=== PATIENT | male | born 1990 | race Two or more races ===

== ENCOUNTER 2025-02-19 20:20 | Inpatient (IN) | payer OTHER, SELFPAY ==
[2025-02-19] VITALS (7 sets, daily range): BP systolic 120–124; BP diastolic 66–82; PULSE 85–120; RESP 14–22; TEMP 37.3–38.5; O2SAT 94–99; BMI 20.3
--- NOTE | 2025-02-19 20:43 | EKG_ITS ---
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
--- NOTE | 2025-02-19 20:43 | XR_ITS ---
EXAMINATION: AP chest single view TECHNIQUE: AP portable semiupright chest single view Date and time: February 19, 2025, 2104 hours INDICATIONS: Sepsis protocol. FINDINGS: Normal heart size Pneumonia left base Tracheostomy tube tip 6.3 cm above harmony IMPRESSION: Pneumonia left base
[2025-02-19 20:55] LABS: Collection Type, Urine Clean Catch
[2025-02-19] MEDS: PIPER/TAZO 3.375 GM PREMIX 3.375 GM/50 ML BAG IV (20:55)
[2025-02-19] MEDS: RINGERS LACTATED 1000 ML 1,000 ML 999 ML IV (20:55)
[2025-02-19] MEDS: ACETAMINOPHEN SUPP 650 MG SUPP 975 MG PR (20:56)
[2025-02-19 20:59] LABS: Lactate (Lactic Acid) 1.5 mMol/L (0.4-2.0)
[2025-02-19 21:00] LABS: Basophils # (Auto) 0.0 Thou/mm3 (0.0-0.2); Basophils % (Auto) 0 % (0-2.5); Eosinophils # (Auto) 0.1 Thou/mm3 (0.0-0.5); Eosinophils % (Auto) 1 % (0-10); Hematocrit 34.5 % (41.0-53.0); Hemoglobin 11.3 g/dL (13.5-16.0); Immature Granulocytes Auto 0.02 Thou/mm3 (0.00-0.00); Lymphocytes # (Auto) 0.5 Thou/mm3 (1.0-4.8); Lymphocytes % (Auto) 5 % (10-50); Mean Corpuscular HGB Conc 32.8 g/dl (31.0-37.0); Mean Corpuscular Hemoglobin 27.3 pg (25.0-35.0); Mean Corpuscular Volume 83 fL (80-100); Monocytes # (Auto) 0.4 Thou/mm3 (0.0-0.8); Monocytes % (Auto) 4 % (0-12); Neutrophils # (Auto) 8.7 Thou/mm3 (1.8-7.7); Neutrophils % (Auto) 90 % (37-80); Nucleated Red Blood Cell # 0.00 Thou/mm3 (0.00-0.00); Nucleated Red Blood Cell % 0 /100 WBC (0); Platelet Count 141 Thou/mm3 (140-440); RDW Standard Deviation 58.5 fL (35.1-43.9); Red Blood Count 4.14 Miln/mm3 (4.50-5.90); White Blood Count 9.7 Thou/mm3 (3.8-10.6)
[2025-02-19 21:04] LABS: Bilirubin,Urine Negative (Negative); Blood,Urine Negative (Negative); Clarity,Urine Clear (Clear/Hazy); Color,Urine Yellow (Lt Yel-Yel); Culture Indicated,Urine Not Indicated; Glucose, Urine Negative (Negative); Ketones,Urine Negative (Negative); Leukocyte Esterase,Urine Positive (Negative); Nitrite,Urine Negative (Negative); PH,Urine 7.0 (5.0-7.0); Protein,Urine Negative (Neg - Trace); RBC,Urine 2 /hpf (0-3); Specific Gravity,Urine 1.015 (1.001-1.035); Squamous Epithelial Cell,Urine < 1 /hpf (0-5); Urobilinogen,Urine 2.0 mg/dL (0.0-1.0); WBC,Urine 3 /hpf (0-5)
[2025-02-19 21:21] LABS: INR 1.3 (0.9-1.3); Partial Thromboplastin Time 34.4 Seconds (22.0-36.0); Prothrombin Time 13.7 Seconds (9.0-12.2)
[2025-02-19 21:27] LABS: B-Type Natriuretic Peptide < 20 pg/mL (0-100)
--- NOTE | 2025-02-19 22:12 | EDNOTE_ITS ---
ED Fever RME/HPI General Chief Complaint: Fever Stated Complaint: FEVER Time Seen by Provider: 02/19/25 20:43 Arrival date/time: 02/19/25 20:20 RME / HPI RME / HPI Narrative: DR. SNOW MAIN ED EVALUATION: Severely debilitated patient with alcoholic cirrhotic liver disease/methamphetamine abuse s/p cardiac arrest with prolonged resuscitation resulting in anoxic encephalopathy referred from subacute due to fever up to 101F. Patient is mechanically ventilated, has a PEG in place, is non-verbal and comatose in a persistently vegetative state. History obtained from nursing personnel. PMH: Chronic respiratory failure, Anoxic Encephalopathy, Cirrhosis. PSH: Non-contributory Allergies: None reported Social: Prior Methamphetamine Abuse Related Data Previous Rx's ?Medication ?Instructions ?Recorded acetaminophen 325 mg tablet 325 mg G-tube Q6HR PRN Karley n 30 02/11/25 days #30 tabs bisacodyl 10 mg rectal suppository 10 mg NH PRN PRN No BM Per Bowel 02/11/25 (Dulcolax (bisacodyl)) Management Protocol 365 days #12 ea ipratropium 0.5 mg-albuterol 3 mg 3 ml INH Q6HRRT 30 d ays #90 mL 02/11/25 (2.5 mg base)/3 mL nebulization soln magnesium hydroxide 400 mg/5 mL 30 ml G-tube PRN PRN C onstipation 02/11/25 oral suspension (Milk of Magnesia) 365 days #355 mL polyethylene glycol 3350 17 gram 17 g G-tube PRN PRN N o BM Per 02/11/25 oral powder packet Bowel Management Protocol 36 5 days #14 ea sodium phosphates 19 gram-7 133 ml NH PRN PRN No BM Pe r Bowel 02/11/25 gram/118 mL enema (Fleet Enema) Management Protocol 36 5 days #133 mL carbamide peroxide 6.5 % ear drops 5 drp otic (ear) Q6 1D 281 days #15 02/12/25 (Ear Wax Removal Drops) mL carbamide peroxide 6.5 % ear drops 5 drp otic (ear) Q6 1D 281 days #15 02/12/25 (Ear Wax Removal Drops) mL carbamide peroxide 6.5 % ear drops 5 drp otic (ear) Q6 1D 282 days #15 02/12/25 (Ear Wax Removal Drops) mL carbamide peroxide 6.5 % ear drops 5 drp otic (ear) Q6 1D 282 days #15 02/12/25 (Ear Wax Removal Drops) mL carbamide peroxide 6.5 % ear drops 5 drp otic (ear) Q6 1D 283 days #15 02/12/25 (Ear Wax Removal Drops) mL carbamide peroxide 6.5 % ear drops 5 drp otic (ear) Q6 1D 283 days #15 02/12/25 (Ear Wax Removal Drops) mL carbamide peroxide 6.5 % ear drops 5 drp otic (ear) Q6 1D 284 days #15 02/12/25 (Ear Wax Removal Drops) mL carbamide peroxide 6.5 % ear drops 5 drp otic (ear) Q6 1D 284 days #15 02/12/25 (Ear Wax Removal Drops) mL acetaminophen 325 mg tablet 650 mg (2 x 325 mg) G-tube Q4HR 02/19/25 PRN Fever > 100.0 7 days #7 tabs Allergies Allergy/AdvReac Type Severity Reaction Status Date / Time No Known Allergies Allergy Verified 02/12/25 03:20 Review of Systems Review of Systems ROS Unobtainable: unobtainable due to medical condition Past Medical History Social History SMOKING STATUS: Unknown if ever smoked Physical Exam Narrative Physical exam: GEN. APPEARANCE: The patient is unresponsive to tactile and vocal stimuli, non- verbal with conjugate gaze, unable to follow simple commands. VITALS: All vitals were reviewed and the pulse ox is 99%, which is normal according to my interpretation HEENT: Normocephalic, atraumatic and nontender. Pupils are equal and reactive. Oral mucosa is moist. NECK: Supple, nontender, no meningismus, no JVD. There is no thyromegaly and no lymphadenopathy. Tracheostomy in place. CHEST: Nontender on palpation no deformity and no crepitus. CARDIOVASCULAR: Heart regular rhythm, no murmur or gallop rub or extra beats. LUNGS: Diminished breath sounds at the right base. No laboring tachypnea or wheezing. No intercostal subcostal retraction. No rales and no rhonchi. ABDOMEN: Soft, flat, PEG tube in place, nontender to palpation, no guarding or rebound tenderness. There are no abnormal masses palpated. No pulsatile masses or bruits. Active and normal bowel sounds. EXTREMITIES: Normal inspection and palpation. No edema. No cyanosis. Patient is able to move all 4 extremities well SKIN: Warm and dry, no rashes noted. MUSCULOSKELETAL: No lumbar or midline bony tenderness. There is no CVA tenderness. No paraspinal muscle spasm or tenderness. NEURO: Obtunded, unresponsive to painful stimuli, motor examination demonstrates reduced tone/flaccid. PSYCHIATRIC: Patient is in normal mood and affect, cooperative. LYMPHATICS: No major lymphadenopathy noted. ED Exam Narrative Physical exam: See Above Course Quality Measures Current suspected stage: sepsis Possible source: pulmonary Blood cultures ordered: yes Antibiotic ordered: Yes Pertinent labs: 02/19/25 02/19/25 20:49 21:32 Lactic Acid 1.5 mMol/L (0.4-2.0) Procalcitonin 0.13 ng/ml (0.0-0.49) sepsis Orders Category Date Time Status Blog Writer STAT Care 02/19/25 20:43 Active Continuous Pulse Oximetry STAT Care 02/19/25 20:43 Active EKG (ED ONLY) *Do not use* NOW Care 02/19/25 20:43 Completed In and Out Catheter X1PRN Care 02/19/25 20:43 Completed Insert IV NOW Care 02/19/25 20:43 Active NPO STAT Care 02/19/25 20:43 Active Strict Intake and Output Routine Care 02/19/25 20:43 Ordered EKG (ED Only) Stat Exams 02/19/25 20:43 Draft XR chest 1V portable Stat Exams 02/19/25 20:43 Completed B-Type Natriuretic Peptide Stat Lab 02/19/25 20:49 Completed Blood Culture (Lab) Stat Lab 02/19/25 20:49 Ordered CBC Stat Lab 02/19/25 20:49 Completed Comprehensive Metabolic Panel Stat Lab 02/19/25 21:32 Completed Lactate (Lactic Acid) Stat Lab 02/19/25 20:49 Completed Lipase Stat Lab 02/19/25 21:32 Completed Magnesium Stat Lab 02/19/25 21:32 Completed Partial Thromboplastin Time Stat Lab 02/19/25 20:49 Completed Phosphorous Stat Lab 02/19/25 21:32 Completed Procalcitonin Stat Lab 02/19/25 21:32 Completed Prothrombin Time with INR Stat Lab 02/19/25 20:49 Completed Sputum Culture and Gram Stain Routine Lab 02/19/25 22:38 Received Troponin I Stat Lab 02/19/25 21:32 Completed Urinalysis, C/S if Indicated Stat Lab 02/19/25 20:49 Completed Acetaminophen Supp [Tylenol Supp] Med 02/19/25 20:43 Active 975 mg NH Q8HR PRN Ondansetron Inj [Zofran Inj] Med 02/19/25 20:43 Active 4 mg IVP Q6HR PRN Piper/Tazo 3.375 gm Premix [Zosyn] Med 02/19/25 20:43 Discontinued 3.375 gm in 50 ml IV X1 Ringers Lactated 1000 ml [Lactated Ringers] 1,000 ml Med 02/19/25 20:43 Discon tinued IV 999 mls/hr Sodium Chloride Rt Bonnie 10% [NS Rt Bonnie 10%] Med 02/19/25 22:08 Discontinued 5 ml INH X1 ONE cefTAZidime Med 02/20/25 00:47 Discontinued 1 gm IV X1 ONE Oxygen Delivery NOW RT 02/19/25 20:43 Active Sputum Induction PRN RT 02/19/25 22:15 Ordered Volume Ventilator Stat RT 02/19/25 Active Vital Signs Vital signs: Vital Signs Pulse Rate 117 H 02/19/25 20:39 Blood Pressure 122/66 02/19/25 20:39 Pulse Oximetry (%) 94 L 02/19/25 20:39 Fraction of Inspired Oxygen 35 02/19/25 20:39 Fever MDM Narrative MDM Narrative:: Scribe Attestation: Sapna Garcia am scribing for and in the presence of Dr. Corral. Provider Notation: Although this document has been carefully reviewed, there may still be some phonetic and other typographical errors. These errors are purely grammatical due to imperfections in the software program and should not be construed in any way to compromise the substance of the patient's medical care during this visit. Severely debilitated patient with alcoholic cirrhotic liver disease/methamphetamine abuse s/p cardiac arrest with prolonged resuscitation resulting in anoxic encephalopathy referred from [facility] due to fever up to 101F. Patient is mechanically ventilated, has a PEG in place, is non-verbal and comatose in a persistently vegetative state. Please see PE findings. Laboratory markers demonstrated WBC of 9.7. Chronic stable hemoglobin of 9.3 and noted left shift without bandemia. Serum chemistries essentially unremarkable, excluding low Magnesium of 1.5. UA without evidence of infection. Viral studies, including COVID and Influenza were negative. CXR demonstrates integral LLL pneumonia. Final diagnoses include sepsis, pneumonia, and acute febrile illness. Patient data External records reviewed:: [facility] previous records (No prior ED records available for review) and [facility] Clinical information provided by:: other (specify) (Nursing personnel) Social determinants that could affect healthcare access:: housing (Subacute) Patient has the following chronic illnesses:: Chronic respiratory failure, Anoxic Encephalopathy, Cirrhosis How is presenting disease/condition affected by chronic disease/condition?: exacerbated by Evaluation data The following diagnostics were reviewed and interpreted by me:: lab results, radiology exam(s) and EKG tracing(s) (EKG demonstrates sinus tachycardia with rate of 105 bpm, no acute ST segment changes, no ventricular ectopy, axis is normal, per my interpretation.) Lab and/or radiology exams considered but not ordered:: None Interpretation Summary: RADIOLOGY Chest X-Ray: FINDINGS: Normal heart size Pneumonia left base Tracheostomy tube tip 6.3 cm above harmony IMPRESSION: Pneumonia left base Medications / Prescriptions Medications or Prescriptions considered but not ordered:: None Medication administrations:: Medication Administration History Acetaminophen (Acetaminophen Supp 650 Mg Supp) 975 mg NH Q8HR PRN PRN Reason: Fever > 100.4 Stop: 03/21/25 20:42 Last Admin: 02/19/25 20:56 Dose: 975 mg Documented By: DT Ondansetron HCl (Ondansetron Inj 2 Mg/Ml Inj 2 Ml) 4 mg IVP Q6HR PRN PRN Reason: NAUSEA OR VOMITING Stop: 03/21/25 20:42 Discontinued Medications Ceftazidime (Ceftazidime 1 Gm Vial) 1 gm IV X1 ONE Stop: 02/20/25 00:48 Lactated Ringer's (Lactated Ringers) 1,000 mls @ 999 mls/hr IV .Q1H1M ONE Stop: 02/19/25 21:43 Last Infusion: 02/19/25 21:56 Dose: Infused Documented By: Admin: 02/19/25 20:55 Dose: 999 mls/hr Documented By: DT Piperacillin/Tazobactam/Dextrose (Zosyn) 3.375 gm in 50 mls @ 100 mls/hr IV X1 ONE Stop: 02/19/25 21:12 Last Infusion: 02/19/25 21:25 Dose: Infused Documented By: Admin: 02/19/25 20:55 Dose: 100 mls/hr Documented By: DT Sodium Chloride (Sodium Chloride Rt 10% 15 Ml Nebu) 5 ml INH X1 ONE Stop: 02/19/25 22:09 See above if any Consultations Consultation(s) initiated? (list below): Yes Consultation #1 (Physician, Specialty, Details): Discussed with Dr. Lema for admission. Reviewed the patient?s HPI, PMHx, lab and/or radiology results. Discussed treatment plan. Will consult an admission to the hospitalist. Time: 00:44 Diagnosis Fever Differential Diagnosis: cellulitis, fever of unknown origin, gastroenteritis, community acquired pneumonia, pyelonephritis, viral infection, sepsis and influenza Most likely diagnosis given after review of the tests above:: Sepsis, Pneumonia, febrile illness Admission Indicated Admission indicated?: indicated Explain why admission is indicated or not indicated:: Sepsis, Pneumonia, febrile illness Admission Request Was there a request for admission?: Yes Admission Attestation Admission request attestation: Discussed case with [] from Hospitalist service regarding admission. Discussed patients ED course, exam findings, labs, and radiology results. The Hospitalist [agrees,declines] to accept the patient for admission. Disposition Plan Disposition Plan: Admit Critical Care Time Critical Care Time Critical Care Time: Yes Total Critical Care Time (min.): 35 Attestation: The high probability of sudden, clinically significant deterioration in the patient?s condition required the highest level of my preparedness to intervene urgently. The services I provided to this patient were to treat and/or prevent clinically significant deterioration. Services included the following: chart data review, reviewing nursing notes and/or old charts, documentation time, corporate travel consultant collaboration regarding findings and treatment options, medication orders and management, direct patient care, vital sign assessments and ordering, interpreting and reviewing diagnostic studies and lab tests. Aggregate critical care time includes only time during which I was engaged in work directly related to the patient?s care, as described above, whether at bedside or elsewhere in the Emergency Department. It did not include time spent performing other reported procedures or the services of residents, students, nurses or physician assistants. Discharge Plan Plan Patient Disposition: Admit Acute Care w/in Hospital Prescriptions/Referrals Prescriptions/Med Rec: No Action bisacodyl [Dulcolax (bisacodyl)] 10 mg suppository 10 mg NH PRN PRN (Reason: No BM Per Bowel Management Protocol) 365 Days Qty: 12 0RF Rx Instructions: Administer as needed on 6th shift, if MOM ineffective. ipratropium-albuterol 0.5 mg-3 mg(2.5 mg base)/3 mL solution for nebulization 3 ml INH Q6HRRT 30 Days Qty: 90 0RF polyethylene glycol 3350 17 gram powder in packet 17 g G-tube PRN PRN (Reason: No BM Per Bowel Management Protocol) 365 Days Qty: 14 0RF Label Comments: Administer as needed if 2nd round bowel protocol ineffective. Rx Instructions: Mix with 4oz of water before giving. Hold tube feeding for 30 minutes after administration. Notify provider if no results from Miralax. magnesium hydroxide [Milk of Magnesia] 400 mg/5 mL suspension 30 ml G-tube PRN PRN (Reason: Constipation) 365 Days Qty: 355 0RF Rx Instructions: CONC: 400MG/5ML Fleet Enema 19-7 gram/118 mL enema 133 ml NH PRN PRN (Reason: No BM Per Bowel Management Protocol) 365 Days Qty: 133 0RF Label Comments: If Dulcolax is ineffective on 3rd day / 7th shift, give Fleets enema per Bowel Management Protocol. Notify MD if no results from Enema. acetaminophen 325 mg tablet 325 mg G-tube Q6HR PRN (Reason: Pain) 30 Days Qty: 30 0RF Ear Wax Removal Drops 6.5 % drops 5 drp otic (ear) Q61D 284 Days Qty: 15 0RF Label Comments: 5 drops per ear at first med pass of shift. Then irrigate ears with NS at next med pass of each shift x 4 days for wax build up. Ear Wax Removal Drops 6.5 % drops 5 drp otic (ear) Q61D 284 Days Qty: 15 0RF Rx Instructions: 5 drops per ear at first med pass of shift. Then irrigate ears with NS at next med pass of each shift x 4 days for wax build up. *Start on the of the month, every two months. Ear Wax Removal Drops 6.5 % drops 5 drp otic (ear) Q61D 283 Days Qty: 15 0RF Label Comments: 5 drops per ear at first med pass of shift. Then irrigate ears with NS at next med pass of each shift x 4 days for wax build up. Ear Wax Removal Drops 6.5 % drops 5 drp otic (ear) Q61D 282 Days Qty: 15 0RF Label Comments: 5 drops per ear at first med pass of shift. Then irrigate ears with NS at next med pass of each shift x 4 days for wax build up. Ear Wax Removal Drops 6.5 % drops 5 drp otic (ear) Q61D 282 Days Qty: 15 0RF Rx Instructions: 5 drops per ear at first med pass of shift. Then irrigate ears with NS at next med pass of each shift x 4 days for wax build up. *Start on the of the month, every two months. Ear Wax Removal Drops 6.5 % drops 5 drp otic (ear) Q61D 283 Days Qty: 15 0RF Rx Instructions: 5 drops per ear at first med pass of shift. Then irrigate ears with NS at next med pass of each shift x 4 days for wax build up. *Start on the of the month, every two months. Ear Wax Removal Drops 6.5 % drops 5 drp otic (ear) Q61D 281 Days Qty: 15 0RF Label Comments: 5 drops per ear at first med pass of shift. Then irrigate ears with NS at next med pass of each shift x 4 days for wax build up. Ear Wax Removal Drops 6.5 % drops 5 drp otic (ear) Q61D 281 Days Qty: 15 0RF Label Comments: 5 drops per ear at first med pass of shift. Then irrigate ears with NS at next med pass of each shift x 4 days for wax build up. acetaminophen 325 mg tablet 650 mg G-tube Q4HR PRN (Reason: Fever > 100.0) 7 Days Qty: 7 0RF Label Comments: Not to exceed 3 grams of Tylenol in 24 hours from all sources Referrals: No Primary/Family,Physician [Primary Care Provider] - In 1 week Problem List Clinical Impression: Sepsis, Community acquired pneumonia, Febrile illness Patient/Caregiver Discharge Instructions Print Language: [place]an Stand Alone Forms: Peri Award Info., Patient Portal Info Letter
[2025-02-19 22:34] LABS: Alanine Aminotransferase 26 U/L (10-49); Albumin, Serum 3.4 gm/dL (3.5-5.0); Albumin/Globulin Ratio 0.8 (1.2-2.2); Alkaline Phosphatase 125 U/L (46-116); Anion Gap 9 (7-16); Aspartate Amino Transferase 61 U/L (0-34); BUN/Creatinine Ratio 14 Ratio (12-20); Bilirubin,Total 1.0 mg/dL (0.3-1.2); Blood Urea Nitrogen 7 mg/dL (9-23); Calcium 8.9 mg/dL (8.3-10.6); Calcium (Corrected) 9.4 mg/dL (8.5-10.1); Carbon Dioxide 25.3 mMol/L (20.0-31.0); Chloride 103 mMol/L (98-107); Creatinine (Component) 0.5 mg/dL (0.6-1.3); Estimated Creatinine Clearance 198.4 mL/min (>60); Globulin 4.3 gm/dL (2.3-3.5); Glucose 101 mg/dL (74-106); Lipase 41 U/L (12-53); Magnesium 1.5 mg/dL (1.6-2.6); Osmolality,Calculated 271 (275-295); Phosphorous 3.9 mg/dL (2.4-5.1); Potassium 4.0 mMol/L (3.4-5.1); Procalcitonin 0.13 ng/ml (0.0-0.49); Sodium 137 mMol/L (136-145); Total Protein 7.7 gm/dL (5.7-8.2); Troponin I < 0.002 ng/mL (0.0-0.045); eGFR > 60 See Note
[2025-02-20] VITALS (16 sets, daily range): BP systolic 94–123; BP diastolic 58–89; PULSE 52–97; RESP 14–25; TEMP 36.2–37; O2SAT 95–100; BMI 20.2
--- NOTE | 2025-02-20 01:52 | ESHP_ITS ---
Documentation for date of: 02/20/25 HPI History of Present Illness History of present illness: 34 year old man in persistent vegetative state pMHX alcoholic cirrhotic liver disease/methamphetamine abuse s/p cardiac arrest with prolonged resuscitation resulting in anoxic encephalopathy referred from subacute due to fever up to 101F. Patient is mechanically ventilated, has a PEG in place, is non-verbal and comatose in a persistently vegetative state. History obtained from nursing personnel. ED Course Summary Vitals: BP 122/66 HR 117 RR 176 T 101.3F O2 94% mechanical ventilation FiO2 35 Labs: Hgb 11.3, PT 13.7 INR 1.3 APTT 34.4 ABG pH 7.49 HCO3 27 pO2 83 pCO2 36. Mg 1.5 AST 61 ALP 125. UA unremarkable other than Leukocyte esterase + Imaging: EKG unremarkable. CXR PNA L lung base Treatment: Zosyn, ceftazidime, LR 1L, zopfran, tylenol MN Upon initial evaluation patient is at chronic vegetative state. He is unresponsive, can open his eyes spontaneously but has no ability to showcase comprehension or communicate. He is brought in from subacute floor. He is currently comfortably breathing on mechanical ventilation. Code: Full Insulin: None Medical Hx: see above Medications: Per sub acute Allergies: KNA Surgical history: Trach'd PEG'd Fhx: Noncontibutory Living: On subacute Alcohol: Former alcoholic Recreational drugs: Meth Patient admitted for: Pneumonia All 12 systems reviewed and were negative except otherwise stated in HPI. Exam Vital Signs Temp Pulse Resp BP Pulse Ox O2 Del Method FiO2 99.1 F 97 14 120/82 99 Mechanical Ventilation 35 02/19/25 22:28 02/19/25 22:28 02/19/25 22:28 02/19/25 22:28 02/19/25 22:28 02/19/25 22:28 02/19/25 20:39 Narrative Exam GENERAL APPEARANCE: AOx0 (chronic persistant vegetative state). NAD, activity normal for age, well developed/ well nourished, no cyanosis, pallor, or diaphoresis. Trach'd and PEG'd HEENT: Normocephalic atraumatic, no facial trauma, neck is supple. Lids/conjunctiva normal. Mucous membranes moist, nares normal, lips/teeth normal uvula midline without oral pharyngeal erythema, exudate or swelling TMs normal bilaterally. No lymphangitis/lymphedema. CARDIAC: Regular rate and rhythm, S1+S2 heard. No murmurs, rubs, or gallops noted RESPIRATORY: Tracheostomy on ventilation support. Crackles heard at left lung base. Difficult to auscultate due to vegetative state and mechanical ventilation. ABDOMINAL: NBS. Soft, ND/NT. No evidence of fluid wave. No pulsatile masses on exam, rebound tenderness, Keene sign or pain over Mcburney's point. +PEG tube MUSCLES/EXTREMITIES: No abnormal range of motion, no swelling. DERM: Warm, pink and dry. No rashes, dermatoses, petechiae or lesions. NEUROLOGICAL: Vegetative state PSYCH: unable to obtain Results: Labs 02/22/25 05:18 02/22/25 05:18 Labs: Short CBC 02/19/25 Range/Units 20:49 WBC 9.7 (3.8-10.6) Thou/mm3 Hgb 11.3 L (13.5-16.0) g/dL Hct 34.5 L (41.0-53.0) % Plt Count 141 (140-440) Thou/mm3 BMP 02/19/25 21:32 Sodium 137 Potassium 4.0 D Chloride 103 Carbon Dioxide 25.3 BUN 7 L Creatinine 0.5 L Glucose 101 Calcium 8.9 Cardiac Enzymes 02/19/25 Range/Units 21:32 Troponin I < 0.002 (0.0-0.045) ng/mL Liver Function 02/19/25 Range/Units 21:32 Total Bilirubin 1.0 (0.3-1.2) mg/dL AST 61 H (0-34) U/L ALT 26 (10-49) U/L Alkaline Phosphatase 125 H (46-116) U/L Albumin 3.4 L (3.5-5.0) gm/dL Urine 02/19/25 Range/Units 20:49 Urine Color Yellow (Lt Yel-Yel) Urine Clarity Clear (Clear/Hazy) Urine pH 7.0 (5.0-7.0) Ur Specific [place] 1.015 (1.001-1.035) Urine Protein Negative (Neg - Trace) Urine Glucose (UA) Negative (Negative) Quality Measures Quality Measures sepsis Current suspected stage: sepsis Possible source: pulmonary Blood cultures ordered: yes Antibiotic ordered: Yes Medications Home Medications and Allergies Allergies Allergy/AdvReac Type Severity Reaction Status Date / Time No Known Allergies Allergy Verified 02/12/25 03:20 Visit Medications Acetaminophen (Acetaminophen Supp 650 Mg Supp) 975 mg MN Q8HR PRN PRN Reason: Fever > 100.4 Stop: 03/21/25 20:42 Last Admin: 02/19/25 20:56 Dose: 975 mg Acetaminophen (Acetaminophen 325 Mg Tablet) 650 mg NG Q6H PRN PRN Reason: Fever >100.4 or pain 1-3 Stop: 03/22/25 01:46 Hydrocodone Bitart/Acetaminophen (Hydrocodone/Apap 5/325 Tablet) 1 tab PO Q4HR PRN PRN Reason: PAIN SCALE 4-6 (Moderate Stop: 02/25/25 01:46 Docusate Sodium (Docusate Sod 100 Mg Capsule) 100 mg PO QDAY [facility]; Protocol Stop: 03/22/25 08:59 Heparin Sodium (Porcine) (Heparin Sod Inj 5000 Unit/Ml Vial) 5,000 unit SC Q12HR [facility] Stop: 03/06/25 08:59 Lactated Ringer's (Lactated Ringers) 1,000 mls @ 75 mls/hr IV .[id number] [facility] Stop: 03/22/25 01:59 Morphine Sulfate (Morphine Sulf Inj 4 Mg/Ml Vial) 1 mg IVP Q4HR PRN PRN Reason: PAIN SCALE 7-10 (Severe Stop: 02/25/25 01:46 Ondansetron HCl (Ondansetron Inj 2 Mg/Ml Inj 2 Ml) 4 mg IVP Q6HR PRN PRN Reason: NAUSEA OR VOMITING Stop: 03/21/25 20:42 Pantoprazole Sodium (Pantoprazole 40 Mg Tablet) 40 mg PO Q12HR [facility] Stop: 03/22/25 08:59 Discontinued Medications Ceftazidime (Ceftazidime 1 Gm Vial) 1 gm IV X1 ONE Stop: 02/20/25 00:48 Last Admin: 02/20/25 01:35 Dose: 1 gm Lactated Ringer's (Lactated Ringers) 1,000 mls @ 999 mls/hr IV .Q1H1M ONE Stop: 02/19/25 21:43 Last Infusion: 02/19/25 21:56 Dose: Infused Piperacillin/Tazobactam/Dextrose (Zosyn) 3.375 gm in 50 mls @ 100 mls/hr IV X1 ONE Stop: 02/19/25 21:12 Last Infusion: 02/19/25 21:25 Dose: Infused Sodium Chloride (Sodium Chloride Rt 10% 15 Ml Nebu) 5 ml INH X1 ONE Stop: 02/19/25 22:09 Assessment & Plan Plan 34 year old man in persistent vegetative state pMHX alcoholic cirrhotic liver disease/methamphetamine abuse s/p cardiac arrest with prolonged resuscitation resulting in anoxic encephalopathy referred from subacute due to fever up to 101F. Patient is mechanically ventilated, has a PEG in place, is non-verbal and comatose in a persistently vegetative state. #Sepsis r/o #VAP #UTI? Presented from subacute with HR 117, T 101.3F, suspected source of infection is in lungs evidenced by CXR showing pneumonia left lung base. Other possible sources of infection could be UTI as patient leukocyte esterase+ on UA, however no other significant findings. 02/19 sputum culture showed +2 WBC and +2 mixed rachel. Zosyn and ceftazidime given in the ED Plan: -Sputum cx:___ -Blood cx:___ -Cefepime 2g IV Q8HR (02/20 - -Vancomycin pharm dosing (02/20 - -Repeat UA:____ -IV LR #Hx of vegetative state #Trach'd and Peg'd Plan: -Review subacute order set -Dietitian referral in -NPO now Health Maintenance: Code status: Full DVT prophylaxis: Heparin subQ GI prophylaxis: Famotidine Diet: Dietitian referral in [place]: yes Lines: PIV Supplemental O2: Mechanical ventilation Disposition: Tele Patient seen and reviewed with attending Dr. Heredia. Note written by Luis Carlos Lema MD PGY-1 Attending Provider Attestation/Addendum After examination of the patient and review of the clinical data I feel that this patient needs admission to the hospital for further treatment/evaluation. Plan of care discussed with patient and is in agreement. I Luis Heredia MD, attest that I was physically present for prieto portions of evaluation, and examined patient, labs and imagings and plan of care were discussed with IM residents team, and I agree with the findings and plans documented above.
[2025-02-20] MEDS: RINGERS LACTATED 1000 ML 1,000 ML 75 ML IV ×2 (02:14→15:01)
[2025-02-20] MEDS: RINGERS LACTATED 1000 ML 1,000 ML 999 ML IV (02:56)
[2025-02-20] MEDS: Magnesium Sulfate 2 GM Ivpb 2 GM/50 ML BAG IV (02:57)
[2025-02-20] MEDS: CEFEPIME INJ 2 GM in SODIUM CHLORIDE 0.9% (Popper) 50 ML IV ×3 (03:09→21:02)
--- NOTE | 2025-02-20 03:21 | EKG_ITS ---
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
[2025-02-20 04:20] LABS: Collection Type, Urine Catheter; Squamous Epithelial Cell,Urine 0 /hpf (0-5)
[2025-02-20] MEDS: Vancomycin Inj 1,000 MG in SODIUM CHLORIDE 0.9% 250 ML 250 ML 120 MG IV (04:22)
[2025-02-20 04:26] LABS: Bilirubin,Urine Negative (Negative); Blood,Urine Negative (Negative); Clarity,Urine Clear (Clear/Hazy); Color,Urine Yellow (Lt Yel-Yel); Culture Indicated,Urine Not Indicated; Glucose, Urine Negative (Negative); Ketones,Urine Negative (Negative); Leukocyte Esterase,Urine Negative (Negative); Nitrite,Urine Negative (Negative); PH,Urine 7.0 (5.0-7.0); Protein,Urine Negative (Neg - Trace); RBC,Urine < 1 /hpf (0-3); Specific Gravity,Urine 1.014 (1.001-1.035); Urobilinogen,Urine Negative mg/dL (0.0-1.0); WBC,Urine 1 /hpf (0-5)
[2025-02-20 05:41] LABS: Basophils # (Auto) 0.0 Thou/mm3 (0.0-0.2); Basophils % (Auto) 0 % (0-2.5); Eosinophils # (Auto) 0.1 Thou/mm3 (0.0-0.5); Eosinophils % (Auto) 1 % (0-10); Hematocrit 32.3 % (41.0-53.0); Hemoglobin 10.5 g/dL (13.5-16.0); Immature Granulocytes Auto 0.01 Thou/mm3 (0.00-0.00); Lymphocytes # (Auto) 0.6 Thou/mm3 (1.0-4.8); Lymphocytes % (Auto) 10 % (10-50); Mean Corpuscular HGB Conc 32.5 g/dl (31.0-37.0); Mean Corpuscular Hemoglobin 27.6 pg (25.0-35.0); Mean Corpuscular Volume 85 fL (80-100); Monocytes # (Auto) 0.4 Thou/mm3 (0.0-0.8); Monocytes % (Auto) 8 % (0-12); Neutrophils # (Auto) 4.5 Thou/mm3 (1.8-7.7); Neutrophils % (Auto) 80 % (37-80); Nucleated Red Blood Cell # 0.00 Thou/mm3 (0.00-0.00); Nucleated Red Blood Cell % 0 /100 WBC (0); Platelet Count 135 Thou/mm3 (140-440); RDW Standard Deviation 60.0 fL (35.1-43.9); Red Blood Count 3.81 Miln/mm3 (4.50-5.90); White Blood Count 5.6 Thou/mm3 (3.8-10.6)
[2025-02-20 06:00] LABS: Alanine Aminotransferase 24 U/L (10-49); Albumin, Serum 3.2 gm/dL (3.5-5.0); Albumin/Globulin Ratio 0.8 (1.2-2.2); Alkaline Phosphatase 108 U/L (46-116); Anion Gap 8 (7-16); Aspartate Amino Transferase 60 U/L (0-34); BUN/Creatinine Ratio 15 Ratio (12-20); Bilirubin,Total 1.2 mg/dL (0.3-1.2); Blood Urea Nitrogen 6 mg/dL (9-23); Calcium 8.8 mg/dL (8.3-10.6); Calcium (Corrected) 9.4 mg/dL (8.5-10.1); Carbon Dioxide 25.0 mMol/L (20.0-31.0); Chloride 107 mMol/L (98-107); Creatinine (Component) 0.4 mg/dL (0.6-1.3); Estimated Creatinine Clearance 248.1 mL/min (>60); Globulin 3.8 gm/dL (2.3-3.5); Glucose 90 mg/dL (74-106); Magnesium 2.0 mg/dL (1.6-2.6); Osmolality,Calculated 277 (275-295); Phosphorous 4.1 mg/dL (2.4-5.1); Potassium 4.3 mMol/L (3.4-5.1); Sodium 140 mMol/L (136-145); Total Protein 7.0 gm/dL (5.7-8.2); eGFR > 60 See Note
--- NOTE | 2025-02-20 06:20 | PC.NURSE ---
THIS RN INFORMED PROVIDER OSVALDO PATIENT NOT STAYING FLAT FOR XRAY OR CT SCAN. PER PROVIDER OK TO HOLD FOR NOW.
--- NOTE | 2025-02-20 08:00 | PC.NURSE ---
RT called to bedside to transfer pt.
[2025-02-20] MEDS: HEPARIN SOD INJ 5000 UNIT/ML VIAL SC ×2 (10:00→20:53)
[2025-02-20] MEDS: DOCUSATE SOD LIQD 100 MG/10 ML UDC GT (10:01)
[2025-02-20] MEDS: VANCOMYCIN/WATER 1250 MG IVPB 250 ML 120 MG IV ×2 (15:01→21:47)
--- NOTE | 2025-02-20 17:55 | PD.RESPRO ---
Documentation for date of: 02/20/25 Subjective Subjective Interval history: Patient seen and examined at bedside. Patient is no longer febrile. Continuing to treat with vancomycin and cefepime. Gram-positive cocci in the blood and sputum. Exam Vital Signs Temp Pulse Resp BP Pulse Ox O2 Del Method FiO2 97.3 F 55 L 20 116/81 96 Mechanical Ventilation 35 02/20/25 16:00 02/20/25 16:00 02/20/25 16:00 02/20/25 16:00 02/20/25 16:00 02/20/25 16:00 02/20/25 16:00 Narrative Exam General: Chronically ill-appearing man, vegetative state, tracheostomy tube, PEG tube. Neurologic: Alert and oriented x0, does not follow commands. HEENT: Normocephalic, atraumatic, mucous membranes moist. Pupils reactive to light. Heart: Regular rate and rhythm, normal S1 and S2, no murmurs. Lungs: Diffuse rales bilaterally. Tracheostomy, mechanically ventilated. Abdomen: PEG tube in place. Soft, nondistended, nontender, positive bowel sounds. No guarding or rebound tenderness. Extremities: No edema. 2+ radial and dorsalis pedis pulses bilaterally. Skin: Warm. Dry. No rash or ecchymoses. Objective Labs 02/21/25 05:07 02/21/25 05:07 Labs: Laboratory Results - last 24 hr 02/19/25 02/19/25 02/20/25 20:49 21:32 03:12 WBC 9.7 RBC 4.14 L Hgb 11.3 L Hct 34.5 L MCV 83 MCH 27.3 MCHC 32.8 RDW Std Deviation 58.5 H Plt Count 141 Neut % (Auto) 90 H Lymph % (Auto) 5 L [place] % (Auto) 4 Eos % (Auto) 1 Baso % (Auto) 0 Neut # (Auto) 8.7 H Lymph # (Auto) 0.5 L [place] # (Auto) 0.4 Eos # (Auto) 0.1 Baso # (Auto) 0.0 Immature Gran # (Auto) 0.02 H Absolute Nucleated RBC 0.00 Immature Gran % 0 Nucleated RBC % 0 PT 13.7 H INR 1.3 APTT 34.4 Sodium 137 Potassium 4.0 D Chloride 103 Carbon Dioxide 25.3 Anion Gap 9 BUN 7 L Creatinine 0.5 L Estim Creat Clear Calc 198.4 eGFR > 60 BUN/Creatinine Ratio 14 Glucose 101 Calculated Osmolality 271 L Lactic Acid 1.5 Calcium 8.9 Corrected Calcium 9.4 Phosphorus 3.9 Magnesium 1.5 L Total Bilirubin 1.0 AST 61 H ALT 26 Alkaline Phosphatase 125 H Troponin I < 0.002 B-Natriuretic Peptide < 20 Total Protein 7.7 Albumin 3.4 L Globulin 4.3 H Albumin/Globulin Ratio 0.8 L Lipase 41 Procalcitonin 0.13 Ur Collection Type Clean Catch Catheter Urine Color Yellow Yellow Urine Clarity Clear Clear Urine pH 7.0 7.0 Ur Specific [place] 1.015 1.014 Urine Protein Negative Negative Urine Glucose (UA) Negative Negative Urine Ketones Negative Negative Urine Blood Negative Negative Urine Nitrite Negative Negative Urine Bilirubin Negative Negative Urine Urobilinogen (Auto) 2.0 Negative Ur Leukocyte Esterase Positive Negative Urine RBC 2 < 1 Urine WBC 3 1 Ur Squamous Epith Cells < 1 0 Urine Bacteria None None Ur Culture Indicated? Not Indicated Not Indicated 02/20/25 05:34 WBC 5.6 D RBC 3.81 L Hgb 10.5 L Hct 32.3 L MCV 85 MCH 27.6 MCHC 32.5 RDW Std Deviation 60.0 H Plt Count 135 L Neut % (Auto) 80 Lymph % (Auto) 10 [place] % (Auto) 8 Eos % (Auto) 1 Baso % (Auto) 0 Neut # (Auto) 4.5 Lymph # (Auto) 0.6 L [place] # (Auto) 0.4 Eos # (Auto) 0.1 Baso # (Auto) 0.0 Immature Gran # (Auto) 0.01 H Absolute Nucleated RBC 0.00 Immature Gran % 0 Nucleated RBC % 0 PT INR APTT Sodium 140 Potassium 4.3 Chloride 107 Carbon Dioxide 25.0 Anion Gap 8 BUN 6 L Creatinine 0.4 L Estim Creat Clear Calc 248.1 eGFR > 60 BUN/Creatinine Ratio 15 Glucose 90 Calculated Osmolality 277 Lactic Acid Calcium 8.8 Corrected Calcium 9.4 Phosphorus 4.1 Magnesium 2.0 Total Bilirubin 1.2 AST 60 H ALT 24 Alkaline Phosphatase 108 Troponin I B-Natriuretic Peptide Total Protein 7.0 Albumin 3.2 L Globulin 3.8 H Albumin/Globulin Ratio 0.8 L Lipase Procalcitonin Ur Collection Type Urine Color Urine Clarity Urine pH Ur Specific [place] Urine Protein Urine Glucose (UA) Urine Ketones Urine Blood Urine Nitrite Urine Bilirubin Urine Urobilinogen (Auto) Ur Leukocyte Esterase Urine RBC Urine WBC Ur Squamous Epith Cells Urine Bacteria Ur Culture Indicated? Quality Measures Quality Measures sepsis Current suspected stage: ruled out Possible source: pulmonary Blood cultures ordered: yes Antibiotic ordered: Yes Assessment & Plan Assessment Current Active Medications: Generic Name Dose Route Start Last Admin Trade Name Freq PRN Reason Stop Dose Admin Acetaminophen 975 mg 02/19/25 20:43 02/19/25 20:56 Acetaminophen Supp 650 Mg Supp MD 03/21/25 20:42 975 mg Q8HR PRN Administration Fever > 100.4 Protocol Acetaminophen 650 mg 02/20/25 01:47 Acetaminophen 325 Mg Tablet NG 03/22/25 01:46 Q6H PRN Fever >100.4 or pain 1-3 Hydrocodone Bitart/Acetaminophen 1 tab 02/20/25 02:41 Hydrocodone/Apap 5/325 Tablet GT 02/25/25 01:46 Q4HR PRN PAIN SCALE 4-6 (Moderate Docusate Sodium 100 mg 02/20/25 09:00 02/20/25 10:01 Docusate Sod Liqd 100 Mg/10 Ml Udc GT 03/22/25 08:59 100 mg QDAY CRISTY Administration Protocol Heparin Sodium (Porcine) 5,000 unit 02/20/25 09:00 02/20/25 10:00 Heparin Sod Inj 5000 Unit/Ml Vial SC 03/06/25 08:59 5,000 unit Q12HR CRISTY Administration Lactated Ringer's 1,000 mls @ 75 mls/hr 02/20/25 02:00 02/20/25 15:01 Lactated Ringers IV 03/22/25 01:59 75 mls/hr .[id number] CRISTY Administration Vancomycin HCl 250 mls @ 120 mls/hr 02/20/25 14:00 02/20/25 15:01 Vancomycin/Water 1250 Mg Ivpb IV 02/27/25 13:59 120 mls/hr Q8HR CRISTY Administration Protocol Cefepime HCl 2 gm/ Sodium 50 mls @ 100 mls/hr 02/20/25 14:00 02/20/25 15:00 Chloride IV 02/27/25 13:59 100 mls/hr Q8HR CRISTY Administration Morphine Sulfate 1 mg 02/20/25 01:47 Morphine Sulf Inj 4 Mg/Ml Vial IVP 02/25/25 01:46 Q4HR PRN PAIN SCALE 7-10 (Severe Ondansetron HCl 4 mg 02/19/25 20:43 Ondansetron Inj 2 Mg/Ml Inj 2 Ml IVP 03/21/25 20:42 Q6HR PRN NAUSEA OR VOMITING Pantoprazole Sodium 40 mg 02/20/25 09:00 02/20/25 10:00 Pantoprazole Inj 40 Mg Vial IVP 03/22/25 08:59 40 mg QDAY CRISTY Administration Pharmacy Consult 1 each 02/20/25 09:00 Vancomycin Pharmacy To Dose 1 Each Each IV 03/22/25 08:59 QDAY PRN CONSULT Plan Summary: 34 year old man in persistent vegetative state pMHX alcoholic cirrhotic liver disease/methamphetamine abuse s/p cardiac arrest with prolonged resuscitation resulting in anoxic encephalopathy referred from [facility] due to fever up to 101F. Patient is mechanically ventilated, has a PEG in place, is non-verbal and comatose in a persistently vegetative state. #Sepsis (Resolved) #CAP vs atypical vs HAP vs GPC bacteremia Presented from [facility] with HR 117, T 101.3F, suspected source of infection is in lungs evidenced by CXR showing pneumonia left lung base. Other possible sources of infection could be UTI as patient leukocyte esterase+ on UA, however no other significant findings. 02/19 sputum culture showed +2 WBC and +2 mixed rachel. Zosyn and ceftazidime given in the ED Sputum and blood cultures grew gram-positive cocci Patient no longer febrile Repeat UA negative Plan: Cefepime 2g IV Q8HR (02/20 - Vancomycin pharm dosing (02/20 - IV LR Guaifenesin #Hx of vegetative state Trach'd and PEG'd Status-post anoxic brain injury after cardiac arrest Plan: Review subacute order set Dietitian referral in [facility] #Normocytic anemia Appears to be chronic issue, MCV normal Plan: No direct intervention at this time Trend CBC with daily labs Health Maintenance: Code status: Full DVT prophylaxis: Heparin subQ GI prophylaxis: Pantoprazole 40 mg IV daily Diet: [facility] [place]: Yes, draining clear to yellow urine Lines: Peripheral IVs Supplemental O2: Mechanical ventilation Disposition: Gram positive cocci in the sputum and blood, treating with vancomycin and cefepime. Patient was seen and discussed with my attending physician Dr. Jacqueline WELLS. Wilbur Aleman DO PGY-1. Attending Provider Attestation/Addendum I, Freda Phillips DO, attest that I was physically present for the prieto portions of the service and evaluated the patient with the resident and I reviewed and discussed the case with the resident and agree with the resident's findings and plans of care as documented above Patient seen and evaluated this AM. Patient is noted to have GPC in 1/2 blood cultures. He remains on vancomycin and cefepime due to concern for MRSA, GNR and pseudomonas. Patient is tracking with eyes, but does not follow commands. Gag and cough reflex is intact. Pupils appear dilated. Patient remains on ventilator, but settings are unchanged. He has significant rhonchi noted in b/l lung harp. No peripheral edema noted. Will order mucinex. F/u with blood and sputum cultures at this time.
[2025-02-20] MEDS: guaiFENesin/DM TABLET 1 EACH GT (20:53)
[2025-02-21] VITALS (14 sets, daily range): BP systolic 105–127; BP diastolic 63–85; PULSE 64–95; RESP 20–27; TEMP 35.9–36.2; O2SAT 92–100
[2025-02-21] MEDS: RINGERS LACTATED 1000 ML 1,000 ML 75 ML IV (04:15)
[2025-02-21] MEDS: CEFEPIME INJ 2 GM in SODIUM CHLORIDE 0.9% (Popper) 50 ML IV ×3 (05:16→21:11)
[2025-02-21 05:44] LABS: Basophils # (Auto) 0.0 Thou/mm3 (0.0-0.2); Basophils % (Auto) 0 % (0-2.5); Eosinophils # (Auto) 0.1 Thou/mm3 (0.0-0.5); Eosinophils % (Auto) 2 % (0-10); Hematocrit 31.8 % (41.0-53.0); Hemoglobin 10.2 g/dL (13.5-16.0); Immature Granulocytes Auto 0.01 Thou/mm3 (0.00-0.00); Lymphocytes # (Auto) 0.6 Thou/mm3 (1.0-4.8); Lymphocytes % (Auto) 15 % (10-50); Mean Corpuscular HGB Conc 32.1 g/dl (31.0-37.0); Mean Corpuscular Hemoglobin 27.3 pg (25.0-35.0); Mean Corpuscular Volume 85 fL (80-100); Monocytes # (Auto) 0.4 Thou/mm3 (0.0-0.8); Monocytes % (Auto) 10 % (0-12); Neutrophils # (Auto) 3.0 Thou/mm3 (1.8-7.7); Neutrophils % (Auto) 73 % (37-80); Nucleated Red Blood Cell # 0.00 Thou/mm3 (0.00-0.00); Nucleated Red Blood Cell % 0 /100 WBC (0); Platelet Count 105 Thou/mm3 (140-440); RDW Standard Deviation 58.6 fL (35.1-43.9); Red Blood Count 3.73 Miln/mm3 (4.50-5.90); White Blood Count 4.0 Thou/mm3 (3.8-10.6)
[2025-02-21 06:01] LABS: Alanine Aminotransferase 20 U/L (10-49); Albumin, Serum 3.2 gm/dL (3.5-5.0); Albumin/Globulin Ratio 0.8 (1.2-2.2); Alkaline Phosphatase 107 U/L (46-116); Anion Gap 6 (7-16); Aspartate Amino Transferase 46 U/L (0-34); BUN/Creatinine Ratio 12 Ratio (12-20); Bilirubin,Total 0.9 mg/dL (0.3-1.2); Blood Urea Nitrogen 6 mg/dL (9-23); Calcium 9.0 mg/dL (8.3-10.6); Calcium (Corrected) 9.6 mg/dL (8.5-10.1); Carbon Dioxide 26.6 mMol/L (20.0-31.0); Chloride 105 mMol/L (98-107); Creatinine (Component) 0.5 mg/dL (0.6-1.3); Estimated Creatinine Clearance 198.4 mL/min (>60); Globulin 3.8 gm/dL (2.3-3.5); Glucose 95 mg/dL (74-106); Magnesium 1.3 mg/dL (1.6-2.6); Osmolality,Calculated 273 (275-295); Phosphorous 4.4 mg/dL (2.4-5.1); Potassium 4.0 mMol/L (3.4-5.1); Sodium 138 mMol/L (136-145); Total Protein 7.0 gm/dL (5.7-8.2); Vancomycin,Trough 16.5 mcg/mL (5.0-10.0); eGFR > 60 See Note
[2025-02-21] MEDS: VANCOMYCIN/WATER 1250 MG IVPB 250 ML 120 MG IV (06:09)
[2025-02-21] MEDS: DOCUSATE SOD LIQD 100 MG/10 ML UDC GT (08:11)
[2025-02-21] MEDS: HEPARIN SOD INJ 5000 UNIT/ML VIAL SC ×2 (08:12→21:12)
[2025-02-21] MEDS: guaiFENesin/DM TABLET 1 EACH GT ×2 (08:12→21:11)
[2025-02-21] MEDS: Magnesium Sulfate 4 GM Ivpb 4 GM/50 ML BAG IV (08:13)
--- NOTE | 2025-02-21 10:47 | PC.SS ---
This is 34-year-old, male who presented to the ED for a fever. Patient is semi-comatose. Assessment completed with patient's sister, Annia. Patient resides at [facility]. Patient is bedbound, trached and fed through PEG tube. In case of an emergency, patient medical decision maker is his mother, Adilene Greenfield, whom will need a interpreter and translator. If Adilene does not answer, then patient's sister, Annia Richmond, can be a second medical decision maker. Patient's PCP is Dr. Pleitez. When medically clear, patient will return to [facility]. Discharge plan: [facility]. Next of kin: Adilene Lindsay ([phone]) or Annia Goldstein ([phone]).
--- NOTE | 2025-02-21 14:01 | PD.RESPRO ---
Documentation for date of: 02/21/25 Subjective Subjective Interval history: Patient seen and examined at bedside. Sputum positive for Serratia Odorifera. GPC positive blood cultures. Will repeat blood culture. Exam Vital Signs Temp Pulse Resp BP Pulse Ox O2 Del Method FiO2 97.1 F 95 26 H 122/66 100 Mechanical Ventilation 35 02/21/25 12:09 02/21/25 13:19 02/21/25 12:09 02/21/25 12:09 02/21/25 13:19 02/21/25 12:09 02/21/25 13:19 Narrative Exam General: Chronically ill-appearing man, vegetative state, tracheostomy tube, PEG tube. Neurologic: Alert and oriented x0, does not follow commands. HEENT: Normocephalic, atraumatic, mucous membranes moist. Pupils reactive to light. Heart: Regular rate and rhythm, normal S1 and S2, no murmurs. Lungs: Diffuse rales bilaterally, improved from yesterday. Tracheostomy, mechanically ventilated. Abdomen: PEG tube in place. Soft, nondistended, nontender, positive bowel sounds. No guarding or rebound tenderness. Extremities: No edema. 2+ radial and dorsalis pedis pulses bilaterally. Skin: Warm. Dry. No rash or ecchymoses. Objective Labs 02/21/25 05:07 02/21/25 05:07 Labs: Laboratory Results - last 24 hr 02/21/25 05:07 WBC 4.0 RBC 3.73 L Hgb 10.2 L Hct 31.8 L MCV 85 MCH 27.3 MCHC 32.1 RDW Std Deviation 58.6 H Plt Count 105 L D Neut % (Auto) 73 Lymph % (Auto) 15 [place] % (Auto) 10 Eos % (Auto) 2 Baso % (Auto) 0 Neut # (Auto) 3.0 Lymph # (Auto) 0.6 L [place] # (Auto) 0.4 Eos # (Auto) 0.1 Baso # (Auto) 0.0 Immature Gran # (Auto) 0.01 H Absolute Nucleated RBC 0.00 Immature Gran % 0 Nucleated RBC % 0 Sodium 138 Potassium 4.0 Chloride 105 Carbon Dioxide 26.6 Anion Gap 6 L BUN 6 L Creatinine 0.5 L Estim Creat Clear Calc 198.4 eGFR > 60 BUN/Creatinine Ratio 12 Glucose 95 Calculated Osmolality 273 L Calcium 9.0 Corrected Calcium 9.6 Phosphorus 4.4 Magnesium 1.3 L Total Bilirubin 0.9 AST 46 H ALT 20 Alkaline Phosphatase 107 Total Protein 7.0 Albumin 3.2 L Globulin 3.8 H Albumin/Globulin Ratio 0.8 L Vancomycin Trough 16.5 H Quality Measures Quality Measures sepsis Current suspected stage: ruled out Possible source: pulmonary Blood cultures ordered: yes Antibiotic ordered: Yes Assessment & Plan Assessment Current Active Medications: Generic Name Dose Route Start Last Admin Trade Name Freq PRN Reason Stop Dose Admin Acetaminophen 975 mg 02/19/25 20:43 02/19/25 20:56 Acetaminophen Supp 650 Mg Supp IL 03/21/25 20:42 975 mg Q8HR PRN Administration Fever > 100.4 Protocol Acetaminophen 650 mg 02/20/25 01:47 Acetaminophen 325 Mg Tablet NG 03/22/25 01:46 Q6H PRN Fever >100.4 or pain 1-3 Hydrocodone Bitart/Acetaminophen 1 tab 02/20/25 02:41 Hydrocodone/Apap 5/325 Tablet GT 02/25/25 01:46 Q4HR PRN PAIN SCALE 4-6 (Moderate Docusate Sodium 100 mg 02/20/25 09:00 02/21/25 08:11 Docusate Sod Liqd 100 Mg/10 Ml Udc GT 03/22/25 08:59 100 mg QDAY CRISTY Administration Protocol Guaifenesin/Dextromethorphan 1 each 02/20/25 21:00 02/21/25 08:12 Guaifenesin/Dm Tablet GT 03/22/25 20:59 1 each BID CRISTY Administration Heparin Sodium (Porcine) 5,000 unit 02/20/25 09:00 02/21/25 08:12 Heparin Sod Inj 5000 Unit/Ml Vial SC 03/06/25 08:59 5,000 unit Q12HR CRISTY Administration Cefepime HCl 2 gm/ Sodium 50 mls @ 100 mls/hr 02/20/25 14:00 02/21/25 06:09 Chloride IV 02/27/25 13:59 Infused Q8HR CRISTY Infusion Vancomycin HCl/Dextrose 250 mls @ 120 mls/hr 02/21/25 14:00 Vancomycin/D5w 1,250 Mg Ivpb IV 02/28/25 13:59 Q8HR CRISTY Protocol Morphine Sulfate 1 mg 02/20/25 01:47 Morphine Sulf Inj 4 Mg/Ml Vial IVP 02/25/25 01:46 Q4HR PRN PAIN SCALE 7-10 (Severe Ondansetron HCl 4 mg 02/19/25 20:43 Ondansetron Inj 2 Mg/Ml Inj 2 Ml IVP 03/21/25 20:42 Q6HR PRN NAUSEA OR VOMITING Pantoprazole Sodium 40 mg 02/20/25 09:00 02/21/25 08:11 Pantoprazole Inj 40 Mg Vial IVP 03/22/25 08:59 40 mg QDAY CRISTY Administration Pharmacy Consult 1 each 02/20/25 09:00 Vancomycin Pharmacy To Dose 1 Each Each IV 03/22/25 08:59 QDAY PRN CONSULT Plan Summary: 34 year old man in persistent vegetative state pMHX alcoholic cirrhotic liver disease/methamphetamine abuse s/p cardiac arrest with prolonged resuscitation resulting in anoxic encephalopathy referred from [facility] due to fever up to 101F. Patient is mechanically ventilated, has a PEG in place, is non-verbal and comatose in a persistently vegetative state. #Sepsis (Resolved) #CAP vs atypical vs HAP # Gram-positive cocci bacteremia Presented from [facility] with HR 117, T 101.3F, suspected source of infection is in lungs evidenced by CXR showing pneumonia left lung base. Other possible sources of infection could be UTI as patient leukocyte esterase+ on UA, however no other significant findings. 02/19 sputum culture showed +2 WBC and +2 mixed rachel. Zosyn and ceftazidime given in the ED Sputum and blood cultures grew gram-positive cocci Sputum positive for Serratia Odorifera Plan: Cefepime 2g IV Q8HR (02/20 - Vancomycin pharm dosing (02/20 - DCed IV LR Guaifenesin Will repeat blood cultures #Hx of vegetative state Trach'd and PEG'd Status-post anoxic brain injury after cardiac arrest Plan: Review subacute order set Dietitian referral in [facility] #Normocytic anemia Appears to be chronic issue, MCV normal Plan: No direct intervention at this time Trend CBC with daily labs Health Maintenance: Code status: Full DVT prophylaxis: Heparin subQ GI prophylaxis: Pantoprazole 40 mg IV daily Diet: [facility] [place]: Yes, draining clear to yellow urine Lines: Peripheral IVs Supplemental O2: Mechanical ventilation Disposition: Gram positive cocci in the sputum and blood, sputum stain for Serratia Odorifera, treating with vancomycin and cefepime, repeating blood cultures. Patient was seen and discussed with my attending physician Dr. Jacqueline WELLS. Wilbur Aleman DO PGY-1. Attending Provider Attestation/Addendum I, Freda Phillips DO, attest that I was physically present for the prieto portions of the service and evaluated the patient with the resident and I reviewed and discussed the case with the resident and agree with the resident's findings and plans of care as documented above Patient seen and evaluated this AM. Patient is much more alert today. No acute events overnight. Blood cultures growing GPC 1 out of 2 bottles in two different sets. Sputum culture positive for serratia odorifera. Sensitive to cefepime. Will continue with broad spectrum abx as cultures and sensitivities are pending. Patient has been afebrile overnight otherwise.
[2025-02-21] MEDS: VANCOMYCIN/D5W 1,250 MG IVPB 250 ML 120 MG IV ×2 (14:48→21:45)
[2025-02-22] VITALS (12 sets, daily range): BP systolic 105–125; BP diastolic 63–91; PULSE 60–92; RESP 17–31; TEMP 36.1–37.2; O2SAT 90–100
[2025-02-22] MEDS: CEFEPIME INJ 2 GM in SODIUM CHLORIDE 0.9% (Popper) 50 ML IV ×3 (05:07→22:04)
[2025-02-22] MEDS: VANCOMYCIN/D5W 1,250 MG IVPB 250 ML 120 MG IV (05:48)
[2025-02-22 05:54] LABS: Basophils # (Auto) 0.0 Thou/mm3 (0.0-0.2); Basophils % (Auto) 0 % (0-2.5); Eosinophils # (Auto) 0.1 Thou/mm3 (0.0-0.5); Eosinophils % (Auto) 2 % (0-10); Hematocrit 31.7 % (41.0-53.0); Hemoglobin 10.3 g/dL (13.5-16.0); Immature Granulocytes Auto 0.01 Thou/mm3 (0.00-0.00); Lymphocytes # (Auto) 0.6 Thou/mm3 (1.0-4.8); Lymphocytes % (Auto) 14 % (10-50); Mean Corpuscular HGB Conc 32.5 g/dl (31.0-37.0); Mean Corpuscular Hemoglobin 27.4 pg (25.0-35.0); Mean Corpuscular Volume 84 fL (80-100); Monocytes # (Auto) 0.4 Thou/mm3 (0.0-0.8); Monocytes % (Auto) 10 % (0-12); Neutrophils # (Auto) 3.0 Thou/mm3 (1.8-7.7); Neutrophils % (Auto) 74 % (37-80); Nucleated Red Blood Cell # 0.00 Thou/mm3 (0.00-0.00); Nucleated Red Blood Cell % 0 /100 WBC (0); Platelet Count 103 Thou/mm3 (140-440); RDW Standard Deviation 57.5 fL (35.1-43.9); Red Blood Count 3.76 Miln/mm3 (4.50-5.90); White Blood Count 4.0 Thou/mm3 (3.8-10.6)
[2025-02-22 06:20] LABS: Alanine Aminotransferase 22 U/L (10-49); Albumin, Serum 3.3 gm/dL (3.5-5.0); Albumin/Globulin Ratio 0.8 (1.2-2.2); Alkaline Phosphatase 109 U/L (46-116); Anion Gap 7 (7-16); Aspartate Amino Transferase 47 U/L (0-34); BUN/Creatinine Ratio 18 Ratio (12-20); Bilirubin,Total 0.7 mg/dL (0.3-1.2); Blood Urea Nitrogen 7 mg/dL (9-23); Calcium 8.8 mg/dL (8.3-10.6); Calcium (Corrected) 9.4 mg/dL (8.5-10.1); Carbon Dioxide 27.3 mMol/L (20.0-31.0); Chloride 105 mMol/L (98-107); Creatinine (Component) 0.4 mg/dL (0.6-1.3); Estimated Creatinine Clearance 248.1 mL/min (>60); Globulin 3.9 gm/dL (2.3-3.5); Glucose 93 mg/dL (74-106); Magnesium 1.5 mg/dL (1.6-2.6); Osmolality,Calculated 275 (275-295); Phosphorous 4.8 mg/dL (2.4-5.1); Potassium 3.9 mMol/L (3.4-5.1); Sodium 139 mMol/L (136-145); Total Protein 7.2 gm/dL (5.7-8.2); eGFR > 60 See Note
[2025-02-22] MEDS: HEPARIN SOD INJ 5000 UNIT/ML VIAL SC ×2 (08:10→20:50)
[2025-02-22] MEDS: DOCUSATE SOD LIQD 100 MG/10 ML UDC GT (08:11)
[2025-02-22] MEDS: guaiFENesin/DM TABLET 1 EACH GT ×2 (08:11→20:49)
[2025-02-22] MEDS: Magnesium Sulfate 4 GM Ivpb 4 GM/50 ML BAG IV (08:28)
[2025-02-22] MEDS: POTASSIUM CHL 10 mEq IVPB 10 MEQ/100 ML BAG 100 MEQ IV (08:28)
--- NOTE | 2025-02-22 10:51 | ECHO_ITS ---
Patient Info Name: Kevyn Rose Age: 34 years : 1990 Gender: Male Ht: 183 cm Wt: 68 kg BSA: 1.85 m2 BP: 105 / 63 mmHg HR: 92 bpm Exam Date: 02/22/2025 2:00 PM Admit Date: 02/20/2025 Site: [facility] Room Number: [id number] Patient Status: I Technical Quality: Poor Exam Type: CA echo doppler complete Assistant Finance Manager: Mary Eaton Ordering Physician: Wilbur Aleman Study Info Indications Lung Crackles, Chronically ill. - Primary Location: S2NX Left Ventricular Outflow Tract Name Value Normal LVOT 2D LVOT Diameter 1.9 cm LVOT Doppler LVOT Peak Velocity 92 cm/s LVOT Mean Gradient 2 mmHg LVOT VTI 21 cm LVOT VTI/AV VTI Ratio 0.8 LVOT Stroke Volume 60 ml Pulmonic Valve Name Value Normal PV Doppler PV Peak Velocity 103 cm/s Mitral Valve Name Value Normal MV Doppler MV Decel [place] 460 cm/s2 MV PHT 37 ms MV Area (PHT) 6.0 cm2 4.0-5.0 MV Diastolic Function MV E Peak Velocity 58 cm/s MV A Peak Velocity 61 cm/s MV E/A 1.0 MV Annular TDI MV Septal e' Velocity 10.3 cm/s MV E/e' (Septal) 5.7 MV Lateral e' Velocity 10.7 cm/s MV E/e' (Lateral) 5.4 MV e' Average 10.50 cm/s MV E/e' (Average) 5.6 Tricuspid Valve Name Value Normal TV Regurgitation Doppler TR Peak Velocity 228 cm/s Estimated PAP/RSVP RA Pressure 3 mmHg <=5 PA Systolic Pressure 24 mmHg <36 RV Systolic Pressure 24 mmHg <36 Aortic Valve Name Value Normal AV 2D/MM AV Cusp Sep (MM) 1.3 cm AV Doppler AV Peak Velocity 137 cm/s AV Mean Gradient 5 mmHg AV VTI 27 cm AV Area (Cont Eq VTI) 2.3 cm2 >=3.0 AV Area (Cont Eq Sherif) 1.9 cm2 AV DI (Sherif) 0.67 AV Regurgitation 2D LVOT Area 2.8 cm2 Ventricles Name Value Normal LV Dimensions 2D/MM IVS Diastolic Thickness (2D) 0.6 cm 0.6-1.0 LVID Diastole (2D) 4.7 cm 4.2-5.8 LVIW Diastolic Thickness (2D) 1.1 cm 0.6-1.0 LVID Systole (2D) 2.9 cm 2.5-4.0 LVOT Diameter 1.9 cm LV Mass (2D Cubed) 132.32 g 88.00-224.00 LV Mass Index (2D Cubed) 71 g/m2 49-115 Relative Wall Thickness (2D) 0.47 <=0.42 IVS/LVIW Diastolic Thickness (2D) 0.55 0.00-1.50 LV Fractional Shortening/Ejection Fraction 2D/MM LV Fractional Shortening (2D) 38 % 25-43 LV EF (2D Teichholz) 69 % Atria Name Value Normal LA Dimensions LA Volume (4C A-L) 54 ml LA Volume (BP A-L) 40 ml Left Ventricle Left ventricular chamber dimension is normal. Left ventricular systolic function is normal with visually estimated ejection fraction of 60-65%. There is concentric remodeling noted in the left ventricle. Left ventricular segmental wall motion is normal. There is normal diastolic function in the left ventricle. Right Ventricle Right ventricular chamber dimension is mildly enlarged. Right ventricular systolic function is normal. Left Atrium Left atrial chamber dimension is normal. Right Atrium Right atrial chamber dimension is normal. Aortic Valve The aortic valve is trileaflet. There is no aortic valve sclerosis. There is no aortic valve stenosis with a peak velocity of 137 cm/s, mean gradient of 5 mmHg, and aortic valve area of 2.3 cm2. There is no aortic valve regurgitation. Pulmonic Valve The pulmonic valve is normal. There is no pulmonic valve stenosis. There is no pulmonic regurgitation. Mitral Valve The mitral valve has normal leaflets. There is no mitral valve stenosis. There is trace mitral valve regurgitation. Tricuspid Valve The tricuspid valve leaflets are normal. There is no tricuspid valve stenosis. There is trace tricuspid valve regurgitation. No pulmonary hypertension, estimated pulmonary arterial systolic pressure is 24 mmHg and systemic blood pressure of 105 mmHg in systole. Pericardium/Pleural The pericardium appears normal. There is no pericardial effusion. No pleural effusion visualized. Inferior Vena Cava Normal inferior vena cava with >50% collapse upon inspiration consistent with normal right atrial pressure, 3 mmHg. Aorta The aortic measurements are indexed to age and body surface area. The aortic root at the sinus of Valsalva is not well visualized. The prox ascending aorta is not well visualized. Summary 1. Left ventricle size is normal and systolic function is normal. Estimated ejection fraction is 60-65%. There is normal diastolic function. 2. Right ventricle chamber size is mildly enlarged and systolic function is normal. Estimated RVSP is 24 mmHg. 3. There is trace mitral valve regurgitation. 4. There is trace tricuspid valve regurgitation. 5. Normal IVC with estimated RA pressure 3 mmHg. Report Signatures Finalized by Norberto Armas on 02/22/2025 05:27 PM
[2025-02-22 13:31] LABS: Vancomycin,Trough 14.0 mcg/mL (5.0-10.0)
[2025-02-22] MEDS: DOXYCYCLINE INJ 100 MG in SODIUM CHLORIDE 0.9% (POP) 100 ML IV ×2 (13:57→20:49)
--- NOTE | 2025-02-22 16:28 | ESPR_ITS ---
<Statement entered by Sherman Cloud MD - 02/22/25 17:12> Patient is seen at bedside. Chronically status post tracheostomy and PEG tube from subacute status post anoxic brain injury due to cardiac arrest. Patient's blood cultures grew Staphylococcus epidermidis in one of the 2 bottles and sputum culture from tracheostomy grew Serratia odorifera. Both are sensitive to doxycycline therefore we will discontinue vancomycin and start doxycycline. Patient was seen and examined by me personally. I have directly supervised and reviewed documentation by the team resident and agree with its findings. ------- Plan of care was discussed with the attending, Dr. Jacqueline Cloud, PGY-2 Documentation for date of: 02/22/25 Subjective Subjective Interval history: Patient seen and examined at bedside. Blood cultures were repeated yesterday and are negative after 24 hours. Switched vancomycin to doxycycline, continuing cefepime, echo ordered. Exam Vital Signs Temp Pulse Resp BP Pulse Ox O2 Del Method FiO2 98.4 F 88 17 110/71 98 Mechanical Ventilation 35 02/22/25 12:00 02/22/25 16:00 02/22/25 12:00 02/22/25 12:00 02/22/25 12:11 02/22/25 12:00 02/22/25 12:11 Narrative Exam General: Chronically ill-appearing man, vegetative state, tracheostomy tube, PEG tube. Neurologic: Alert and oriented x0, does not follow commands. HEENT: Normocephalic, atraumatic, mucous membranes moist. Pupils reactive to light. Heart: Regular rate and rhythm, normal S1 and S2, no murmurs. Lungs: Diffuse rales bilaterally, improved from yesterday. Tracheostomy, mechanically ventilated. Abdomen: PEG tube in place. Soft, nondistended, nontender, positive bowel sounds. No guarding or rebound tenderness. Extremities: No edema. 2+ radial and dorsalis pedis pulses bilaterally. Skin: Warm. Dry. No rash or ecchymoses. Objective Labs 02/23/25 05:41 02/23/25 05:41 Labs: Laboratory Results - last 24 hr 02/22/25 02/22/25 05:18 13:07 WBC 4.0 RBC 3.76 L Hgb 10.3 L Hct 31.7 L MCV 84 MCH 27.4 MCHC 32.5 RDW Std Deviation 57.5 H Plt Count 103 L Neut % (Auto) 74 Lymph % (Auto) 14 [place] % (Auto) 10 Eos % (Auto) 2 Baso % (Auto) 0 Neut # (Auto) 3.0 Lymph # (Auto) 0.6 L [place] # (Auto) 0.4 Eos # (Auto) 0.1 Baso # (Auto) 0.0 Immature Gran # (Auto) 0.01 H Absolute Nucleated RBC 0.00 Immature Gran % 0 Nucleated RBC % 0 Sodium 139 Potassium 3.9 Chloride 105 Carbon Dioxide 27.3 Anion Gap 7 BUN 7 L Creatinine 0.4 L Estim Creat Clear Calc 248.1 eGFR > 60 BUN/Creatinine Ratio 18 Glucose 93 Calculated Osmolality 275 Calcium 8.8 Corrected Calcium 9.4 Phosphorus 4.8 Magnesium 1.5 L Total Bilirubin 0.7 AST 47 H ALT 22 Alkaline Phosphatase 109 Total Protein 7.2 Albumin 3.3 L Globulin 3.9 H Albumin/Globulin Ratio 0.8 L Vancomycin Trough 14.0 H Quality Measures Quality Measures sepsis Current suspected stage: ruled out Possible source: pulmonary Blood cultures ordered: yes Antibiotic ordered: Yes Assessment & Plan Assessment Current Active Medications: Generic Name Dose Route Start Last Admin Trade Name Freq PRN Reason Stop Dose Admin Acetaminophen 975 mg 02/19/25 20:43 02/19/25 20:56 Acetaminophen Supp 650 Mg Supp MN 03/21/25 20:42 975 mg Q8HR PRN Administration Fever > 100.4 Protocol Acetaminophen 650 mg 02/20/25 01:47 Acetaminophen 325 Mg Tablet NG 03/22/25 01:46 Q6H PRN Fever >100.4 or pain 1-3 Hydrocodone Bitart/Acetaminophen 1 tab 02/20/25 02:41 Hydrocodone/Apap 5/325 Tablet GT 02/25/25 01:46 Q4HR PRN PAIN SCALE 4-6 (Moderate Docusate Sodium 100 mg 02/20/25 09:00 02/22/25 08:11 Docusate Sod Liqd 100 Mg/10 Ml Udc GT 03/22/25 08:59 100 mg QDAY CRISTY Administration Protocol Guaifenesin/Dextromethorphan 1 each 02/20/25 21:00 02/22/25 08:11 Guaifenesin/Dm Tablet GT 03/22/25 20:59 1 each BID CRISTY Administration Heparin Sodium (Porcine) 5,000 unit 02/20/25 09:00 02/22/25 08:10 Heparin Sod Inj 5000 Unit/Ml Vial SC 03/06/25 08:59 5,000 unit Q12HR CRISTY Administration Cefepime HCl 2 gm/ Sodium 50 mls @ 100 mls/hr 02/20/25 14:00 02/22/25 13:55 Chloride IV 02/27/25 13:59 100 mls/hr Q8HR CRISTY Administration Doxycycline Hyclate 100 mg/ 100 mls @ 100 mls/hr 02/22/25 11:00 02/22/25 13:57 Sodium Chloride IV 03/01/25 10:59 100 mls/hr BID CRISYT Administration Lansoprazole 30 mg 02/23/25 09:00 Lansoprazole 30 Mg Tab.Rap.Dr DODD 03/25/25 08:59 QDAY CRISTY Protocol Morphine Sulfate 1 mg 02/20/25 01:47 Morphine Sulf Inj 4 Mg/Ml Vial IVP 02/25/25 01:46 Q4HR PRN PAIN SCALE 7-10 (Severe Ondansetron HCl 4 mg 02/19/25 20:43 Ondansetron Inj 2 Mg/Ml Inj 2 Ml IVP 03/21/25 20:42 Q6HR PRN NAUSEA OR VOMITING Plan Summary: 34 year old man in persistent vegetative state pMHX alcoholic cirrhotic liver disease/methamphetamine abuse s/p cardiac arrest with prolonged resuscitation resulting in anoxic encephalopathy referred from [facility] due to fever up to 101F. Patient is mechanically ventilated, has a PEG in place, is non-verbal and comatose in a persistently vegetative state. #Sepsis (Resolved) #CAP vs HAP # Gram-positive cocci bacteremia * Presented from subacute with HR 117, T 101.3F, suspected source of infection is in lungs evidenced by * CXR showing pneumonia left lung base. * 02/19 sputum culture showed +2 WBC and +2 mixed rachel. Zosyn and ceftazidime given in the ED * Sputum positive for Serratia Odorifera on 02/19/2025 * Blood culture positive for Staph epidermidis on 02/19/2025 Plan: * Culture sensitivities were analysed for the following antibiotic treatment: * Cefepime 2g IV Q8HR (02/20 - * Doxycycline 100 mg IV twice daily started 02/22/2025 * Vancomycin discontinued on 02/22/2025 * Guaifenesin * Repeat blood cultures drawn on 02/21/2025 are negative after 24 hours, will follow #Anoxic brain injruy 2/ #s/p Cardiac Arrest * Chronically Trach'd and PEG'd * Resident of [facility] Subacute * Status-post anoxic brain injury after cardiac arrest Plan: * Review subacute order set * Dietitian referral in * Resume tube feeds with Jevity #Normocytic anemia, stable * Appears to be chronic issue, MCV normal Plan: * No direct intervention at this time * Trend CBC with daily labs Health Maintenance: Code status: Full DVT prophylaxis: Heparin subQ GI prophylaxis: Pantoprazole 40 mg IV daily Diet: Jevity Boyd: Yes, draining clear to yellow urine Lines: Peripheral IVs Supplemental O2: Mechanical ventilation Disposition: Blood cultures from 02/19/2025 showed Staph epidermidis. Sputum cultures showed Serratia Odorifera on 02/19/2025. Continuing cefepime, stopped vancomycin and started doxycycline. Repeat blood cultures from 02/21/2025 negative after 24 hours. Patient was seen and discussed with my attending physician Dr. Jacqueline WELLS and my senior resident Dr. Pedro Luis LOWE PGY-2. Wilbur Aleman DO PGY-1. Attending Provider Attestation/Addendum I, Freda Phillips DO, attest that I was physically present for the prieto portions of the service and evaluated the patient with the resident and I reviewed and discussed the case with the resident and agree with the resident's findings and plans of care as documented above Patient seen and eval this a.m. Patient has his eyes open andgazing around the room. Lungs are much clearer to auscultation bilaterally. Pending echocardiogram due to concern for bacteremia. Noted to have another sputum culture positive for Serratia marcescens. However, 2 different blood cultures have grown staph epidermidis and Staph hominis. Serratia is sensitive to cefepime while staph is sensitive to doxycycline. Will discontinue vancomycin at this time. Will follow-up with repeat blood cultures at this time and echo results to rule out any vegetations. Patient otherwise has been afebrile. No vent changes. No acute events overnight.
[2025-02-23] VITALS (10 sets, daily range): BP systolic 104–117; BP diastolic 54–76; PULSE 60–96; RESP 18–22; TEMP 36.1–36.7; O2SAT 92–99; BMI 19.5; BMI 19.4
[2025-02-23] MEDS: CEFEPIME INJ 2 GM in SODIUM CHLORIDE 0.9% (Popper) 50 ML IV ×3 (05:11→21:06)
[2025-02-23 06:28] LABS: Basophils # (Auto) 0.0 Thou/mm3 (0.0-0.2); Basophils % (Auto) 0 % (0-2.5); Eosinophils # (Auto) 0.1 Thou/mm3 (0.0-0.5); Eosinophils % (Auto) 3 % (0-10); Hematocrit 31.9 % (41.0-53.0); Hemoglobin 10.5 g/dL (13.5-16.0); Immature Granulocytes Auto 0.01 Thou/mm3 (0.00-0.00); Lymphocytes # (Auto) 0.6 Thou/mm3 (1.0-4.8); Lymphocytes % (Auto) 18 % (10-50); Mean Corpuscular HGB Conc 32.9 g/dl (31.0-37.0); Mean Corpuscular Hemoglobin 27.6 pg (25.0-35.0); Mean Corpuscular Volume 84 fL (80-100); Monocytes # (Auto) 0.3 Thou/mm3 (0.0-0.8); Monocytes % (Auto) 10 % (0-12); Neutrophils # (Auto) 2.4 Thou/mm3 (1.8-7.7); Neutrophils % (Auto) 69 % (37-80); Nucleated Red Blood Cell # 0.00 Thou/mm3 (0.00-0.00); Nucleated Red Blood Cell % 0 /100 WBC (0); Platelet Count 123 Thou/mm3 (140-440); RDW Standard Deviation 57.1 fL (35.1-43.9); Red Blood Count 3.80 Miln/mm3 (4.50-5.90); White Blood Count 3.5 Thou/mm3 (3.8-10.6)
[2025-02-23 06:50] LABS: Alanine Aminotransferase 22 U/L (10-49); Albumin, Serum 3.3 gm/dL (3.5-5.0); Albumin/Globulin Ratio 0.8 (1.2-2.2); Alkaline Phosphatase 110 U/L (46-116); Anion Gap 9 (7-16); Aspartate Amino Transferase 46 U/L (0-34); BUN/Creatinine Ratio 20 Ratio (12-20); Bilirubin,Total 0.8 mg/dL (0.3-1.2); Blood Urea Nitrogen 8 mg/dL (9-23); Calcium 8.7 mg/dL (8.3-10.6); Calcium (Corrected) 9.3 mg/dL (8.5-10.1); Carbon Dioxide 27.4 mMol/L (20.0-31.0); Chloride 103 mMol/L (98-107); Creatinine (Component) 0.4 mg/dL (0.6-1.3); Estimated Creatinine Clearance 238.1 mL/min (>60); Globulin 3.9 gm/dL (2.3-3.5); Glucose 115 mg/dL (74-106); Magnesium 1.4 mg/dL (1.6-2.6); Osmolality,Calculated 276 (275-295); Phosphorous 4.3 mg/dL (2.4-5.1); Potassium 3.9 mMol/L (3.4-5.1); Sodium 139 mMol/L (136-145); Total Protein 7.2 gm/dL (5.7-8.2); eGFR > 60 See Note
--- NOTE | 2025-02-23 07:48 | ESPR_ITS ---
<Statement entered by Sherman Cloud MD - 02/23/25 16:16> Pt is seen at bedside, sputum cultures grew GPC, therefore repeat cultures are pending so far negative at 24 hours, will wait until 48 hours. Will anticipate discharge tomorrow to subacute if cultures are negative at 48hrs. Pt's is tube feeds are at goal and will check glucose Q6H. Patient was seen and examined by me personally. I have directly supervised and reviewed documentation by the team resident and agree with its findings. ------- Plan of care was discussed with the attending, Dr. Anne Cloud, PGY-2 Documentation for date of: 02/23/25 Subjective Subjective Interval history: patient seen and examined at bedside. minimal secretions in trach no acute events overnight echo with ef 60-65%, blood glucose q6hr, possible d/c tomorrow to sub acute, plan to call dr. causey (will d/c prior to 1 PM) Exam Vital Signs Temp Pulse Resp BP Pulse Ox O2 Del Method FiO2 97.6 F 85 18 108/71 92 L Mechanical Ventilation 35 02/23/25 04:00 02/23/25 06:41 02/23/25 04:00 02/23/25 04:00 02/23/25 06:41 02/23/25 04:00 02/23/25 06:41 Narrative Exam General: Chronically ill-appearing man, vegetative state, tracheostomy tube, PEG tube. Neurologic: Alert and oriented x0, does not follow commands. HEENT: Normocephalic, atraumatic, mucous membranes dry. Pupils reactive to light. trach midline without errythema at base Heart: Regular rate and rhythm, normal S1 and S2, no murmurs. Lungs: Diffuse rales bilaterally, ronchous breath sounds from vent Tracheostomy, mechanically ventilated. minimal secretions in trach tube Abdomen: PEG tube in place. Soft, nondistended, nontender, positive bowel sounds. No guarding or rebound tenderness. Extremities: No edema. 2+ radial and dorsalis pedis pulses bilaterally. Skin: Warm. Dry. No rash or ecchymoses. Objective Labs 02/24/25 04:45 02/24/25 04:45 Labs: Laboratory Results - last 24 hr 02/22/25 02/23/25 13:07 05:41 WBC 3.5 L RBC 3.80 L Hgb 10.5 L Hct 31.9 L MCV 84 MCH 27.6 MCHC 32.9 RDW Std Deviation 57.1 H Plt Count 123 L Neut % (Auto) 69 Lymph % (Auto) 18 [place] % (Auto) 10 Eos % (Auto) 3 Baso % (Auto) 0 Neut # (Auto) 2.4 Lymph # (Auto) 0.6 L [place] # (Auto) 0.3 Eos # (Auto) 0.1 Baso # (Auto) 0.0 Immature Gran # (Auto) 0.01 H Absolute Nucleated RBC 0.00 Immature Gran % 0 Nucleated RBC % 0 Sodium 139 Potassium 3.9 Chloride 103 Carbon Dioxide 27.4 Anion Gap 9 BUN 8 L Creatinine 0.4 L Estim Creat Clear Calc 238.1 eGFR > 60 BUN/Creatinine Ratio 20 Glucose 115 H Calculated Osmolality 276 Calcium 8.7 Corrected Calcium 9.3 Phosphorus 4.3 Magnesium 1.4 L Total Bilirubin 0.8 AST 46 H ALT 22 Alkaline Phosphatase 110 Total Protein 7.2 Albumin 3.3 L Globulin 3.9 H Albumin/Globulin Ratio 0.8 L Vancomycin Trough 14.0 H Quality Measures Quality Measures sepsis Current suspected stage: sepsis Possible source: pulmonary Blood cultures ordered: yes Antibiotic ordered: Yes Assessment & Plan Assessment Current Active Medications: Generic Name Dose Route Start Last Admin Trade Name Freq PRN Reason Stop Dose Admin Acetaminophen 975 mg 02/19/25 20:43 02/19/25 20:56 Acetaminophen Supp 650 Mg Supp PA 03/21/25 20:42 975 mg Q8HR PRN Administration Fever > 100.4 Protocol Acetaminophen 650 mg 02/20/25 01:47 Acetaminophen 325 Mg Tablet NG 03/22/25 01:46 Q6H PRN Fever >100.4 or pain 1-3 Hydrocodone Bitart/Acetaminophen 1 tab 02/20/25 02:41 Hydrocodone/Apap 5/325 Tablet GT 02/25/25 01:46 Q4HR PRN PAIN SCALE 4-6 (Moderate Docusate Sodium 100 mg 02/20/25 09:00 02/22/25 08:11 Docusate Sod Liqd 100 Mg/10 Ml Udc GT 03/22/25 08:59 100 mg QDAY CRISTY Administration Protocol Guaifenesin/Dextromethorphan 1 each 02/20/25 21:00 02/22/25 20:49 Guaifenesin/Dm Tablet GT 03/22/25 20:59 1 each BID CRISTY Administration Heparin Sodium (Porcine) 5,000 unit 02/20/25 09:00 02/22/25 20:50 Heparin Sod Inj 5000 Unit/Ml Vial SC 03/06/25 08:59 5,000 unit Q12HR CRISTY Administration Cefepime HCl 2 gm/ Sodium 50 mls @ 100 mls/hr 02/20/25 14:00 02/23/25 05:11 Chloride IV 02/27/25 13:59 100 mls/hr Q8HR CRISTY Administration Doxycycline Hyclate 100 mg/ 100 mls @ 100 mls/hr 02/22/25 11:00 02/22/25 20:49 Sodium Chloride IV 03/01/25 10:59 100 mls/hr BID CRISTY Administration Magnesium Sulfate 4 gm in 50 mls @ 12.5 mls/hr 02/23/25 07:35 Magnesium Sulfate Ivpb IV 02/23/25 11:34 X1 ONE Lansoprazole 30 mg 02/23/25 09:00 Lansoprazole 30 Mg Tab.Rap. GT 03/25/25 08:59 QDAY CRISTY Protocol Morphine Sulfate 1 mg 02/20/25 01:47 Morphine Sulf Inj 4 Mg/Ml Vial IVP 02/25/25 01:46 Q4HR PRN PAIN SCALE 7-10 (Severe Ondansetron HCl 4 mg 02/19/25 20:43 Ondansetron Inj 2 Mg/Ml Inj 2 Ml IVP 03/21/25 20:42 Q6HR PRN NAUSEA OR VOMITING Plan Mr Rose is a 34 year old gentleman in persistent vegetative state pMHX alcoholic cirrhotic liver disease/methamphetamine abuse s/p cardiac arrest with prolonged resuscitation resulting in anoxic encephalopathy referred from subacute due to fever up to 101F. Patient is mechanically ventilated, has a PEG in place, is non-verbal and comatose in a persistently vegetative state. pending repeat blood cx with plan to d/c to subacute likely tomorrow before 1 PM #Sepsis (Resolved) #CAP vs HAP # Gram-positive cocci bacteremia * Presented from subacute with HR 117, T 101.3F, suspected source of infection is in lungs evidenced by * CXR showing pneumonia left lung base. * 02/19 sputum culture showed +2 WBC and +2 mixed rachel. Zosyn and ceftazidime given in the ED * Sputum positive for Serratia Odorifera on 02/19/2025 * Blood culture positive for Staph epidermidis on 02/19/2025 Plan: * Culture sensitivities were analysed for the following antibiotic treatment: * Cefepime 2g IV Q8HR (02/20 - * Doxycycline 100 mg IV twice daily started 02/22/2025 * Vancomycin discontinued on 02/22/2025 * Guaifenesin * Repeat blood cultures drawn on 02/21/2025 are negative after 24 hours, will follow @ 48 hrs pending #Anoxic brain injruy / #s/p Cardiac Arrest #Chronically on Mechanical Ventilation * Chronically Trach'd and PEG'd * Resident of [facility] Subacute * Status-post anoxic brain injury after cardiac arrest Plan: * Review subacute order set * Dietitian referral * Resume tube feeds with Jevity * q6hr bedside glucose checks #Normocytic anemia, stable * Appears to be chronic issue, MCV normal Plan: * No direct intervention at this time * Trend CBC with daily labs #Hypomagnesemia replete as indicated Health Maintenance: Code status: Full DVT prophylaxis: Heparin subQ GI prophylaxis: Pantoprazole 40 mg IV daily Diet: Jevity Boyd: Yes, draining clear to yellow urine Lines: Peripheral IVs Supplemental O2: Mechanical ventilation Disposition: Blood cultures from 02/19/2025 showed Staph epidermidis. Sputum cultures showed Serratia Odorifera on 02/19/2025. Continuing cefepime, stopped vancomycin and started doxycycline. Repeat blood cultures from 02/21/2025 negative after 24 hours, pending 48 hour results Plan discussed with my attending Dr. Rodríguez and my senior resident Dr. Allison Dos Santos MD PGY1 Attending Provider Attestation/Addendum I reviewed labs, imaging, EKG, home medications and prior available records. Face to face evaluation was performed by me. I have personally examined the patient and discussed assessment and plan with the IM team. I reviewed the resident note and agree with the plan with exceptions as below. Chronic hypoxic respiratory failure Anoxic brain injury History of cardiac arrest status post trach and PEG Ventilator associated pneumonia Continue ventilation Continue PEG tube care Initial blood culture grew gram-positive cocci Repeat blood culture is negative to date Continue cefepime/doxycycline
[2025-02-23] MEDS: Magnesium Sulfate 4 GM Ivpb 4 GM/50 ML BAG IV (07:49)
[2025-02-23] MEDS: HEPARIN SOD INJ 5000 UNIT/ML VIAL SC ×2 (08:05→21:06)
[2025-02-23] MEDS: DOCUSATE SOD LIQD 100 MG/10 ML UDC GT (08:06)
[2025-02-23] MEDS: guaiFENesin/DM TABLET 1 EACH GT ×2 (08:06→21:06)
[2025-02-23] MEDS: DOXYCYCLINE INJ 100 MG in SODIUM CHLORIDE 0.9% (POP) 100 ML IV ×2 (08:07→21:05)
[2025-02-23] MEDS: LANSOPRAZOLE 30 MG TAB.RAP.DR GT (08:07)
--- NOTE | 2025-02-23 10:10 | PC.SS ---
rounding note: Patient possibly to return to [facility] subacute. Pending physician: physician phone call.
[2025-02-24] VITALS (7 sets, daily range): BP systolic 96–121; BP diastolic 54–74; PULSE 50–107; RESP 20–22; TEMP 36.1–36.7; O2SAT 93–99; BMI 19.4
[2025-02-24] MEDS: CEFEPIME INJ 2 GM in SODIUM CHLORIDE 0.9% (Popper) 50 ML IV (05:10)
[2025-02-24 05:39] LABS: Basophils # (Auto) 0.0 Thou/mm3 (0.0-0.2); Basophils % (Auto) 0 % (0-2.5); Eosinophils # (Auto) 0.2 Thou/mm3 (0.0-0.5); Eosinophils % (Auto) 4 % (0-10); Hematocrit 32.0 % (41.0-53.0); Hemoglobin 10.2 g/dL (13.5-16.0); Immature Granulocytes Auto 0.01 Thou/mm3 (0.00-0.00); Lymphocytes # (Auto) 0.6 Thou/mm3 (1.0-4.8); Lymphocytes % (Auto) 16 % (10-50); Mean Corpuscular HGB Conc 31.9 g/dl (31.0-37.0); Mean Corpuscular Hemoglobin 27.1 pg (25.0-35.0); Mean Corpuscular Volume 85 fL (80-100); Monocytes # (Auto) 0.5 Thou/mm3 (0.0-0.8); Monocytes % (Auto) 12 % (0-12); Neutrophils # (Auto) 2.6 Thou/mm3 (1.8-7.7); Neutrophils % (Auto) 68 % (37-80); Nucleated Red Blood Cell # 0.00 Thou/mm3 (0.00-0.00); Nucleated Red Blood Cell % 0 /100 WBC (0); Platelet Count 111 Thou/mm3 (140-440); RDW Standard Deviation 58.4 fL (35.1-43.9); Red Blood Count 3.77 Miln/mm3 (4.50-5.90); White Blood Count 3.9 Thou/mm3 (3.8-10.6)
[2025-02-24 06:03] LABS: Alanine Aminotransferase 23 U/L (10-49); Albumin, Serum 3.2 gm/dL (3.5-5.0); Albumin/Globulin Ratio 0.8 (1.2-2.2); Alkaline Phosphatase 106 U/L (46-116); Anion Gap 9 (7-16); Aspartate Amino Transferase 49 U/L (0-34); BUN/Creatinine Ratio 25 Ratio (12-20); Bilirubin,Total 0.7 mg/dL (0.3-1.2); Blood Urea Nitrogen 10 mg/dL (9-23); Calcium 8.8 mg/dL (8.3-10.6); Calcium (Corrected) 9.4 mg/dL (8.5-10.1); Carbon Dioxide 27.4 mMol/L (20.0-31.0); Chloride 104 mMol/L (98-107); Creatinine (Component) 0.4 mg/dL (0.6-1.3); Estimated Creatinine Clearance 237.0 mL/min (>60); Globulin 3.9 gm/dL (2.3-3.5); Glucose 89 mg/dL (74-106); Magnesium 1.4 mg/dL (1.6-2.6); Osmolality,Calculated 277 (275-295); Phosphorous 4.4 mg/dL (2.4-5.1); Potassium 4.1 mMol/L (3.4-5.1); Sodium 140 mMol/L (136-145); Total Protein 7.1 gm/dL (5.7-8.2); eGFR > 60 See Note
--- NOTE | 2025-02-24 08:53 | ESDS_ITS ---
Planned Discharge Date 02/24/25 DS: Providers Provider Date of admission: 02/20/25 01:48 Primary care physician: Physician No Primary/Family Admitting Provider: Luis Heredia MD Attending Provider on Admission: Freda Phillips DO Consults: 02/20/25 02:46 Referral Registered Dietitian Routine Comment: PEG tube from subacute 02/20/25 11:02 Referral Registered Dietitian Routine Comment: Attending Provider on DC: Mario Rodríguez MD Discharging Provider: Mario Rodríguez MD DS: Diagnosis Problem List Completed Was Problem List Reviewed/Reconciled?: Yes Hospital Course Hospital Course Hospital course: Hospital Course Mr Rose is a 34 year old gentleman in persistent vegetative state pMHX alcoholic cirrhotic liver disease/methamphetamine abuse s/p cardiac arrest with prolonged resuscitation resulting in anoxic encephalopathy referred from subacute due to fever up to 101F. Patient is mechanically ventilated, has a PEG in place, is non-verbal and comatose in a persistently vegetative state. He was found to have Left lung base Pneumonia on chest imaging. Initial blood cultures grew Staph epidermidis and sputum cultures grew Serratia Odorifera, he continued on IV antibiotics with Cefepime and Vancomycin, repeat blood cultures were negative, and so vancomycin was discontinued. Echo was performed which demonstrated EF 60-65%. Antibiotics were narrowed. Patient was hemodynamically stable, labs were reviewed, pt progressing towards his baseline without assistance deemed stable and medically cleared for discharge back to subacute. Diagnoses #Sepsis (Resolved) #CAP vs HAP # Gram-positive cocci bacteremia #Anoxic brain injruy 2/2 #s/p Cardiac Arrest #Chronically on Mechanical Ventilation #Normocytic anemia, stable Discharge instructions -Follow up with PCP within 1 week of discharge, if you do not have a primary care physician you can come see us at the [facility] by calling [phone] -You have been prescribed antibiotics for 2 additional days, please complete the course -Continue rest of medications as previously prescribed -Return to the ED or call EMS if symptoms return and/or worsen Plan discussed with my attending Dr. Rodríguez and my senior resident Dr. Allison Dos Santos MD PGY1 Time Spent with Patient Time attestation: Total time spent providing and/or coordinating discharge services: Time spent: Greater than 30 minutes Exam Vital Signs Temp Pulse Resp BP Pulse Ox O2 Del Method FiO2 98.0 F 63 20 103/69 93 L Mechanical Ventilation 35 02/24/25 08:00 02/24/25 08:00 02/24/25 08:00 02/24/25 08:00 02/24/25 08:00 02/24/25 08:00 02/24/25 08:00 Narrative Exam General: Chronically ill-appearing man, vegetative state, tracheostomy tube, PEG tube. Neurologic: Alert and oriented x0, does not follow commands. HEENT: Normocephalic, atraumatic, mucous membranes dry. Pupils reactive to light. trach midline without errythema at base Heart: Regular rate and rhythm, normal S1 and S2, no murmurs. Lungs: Diffuse rales bilaterally, ronchous breath sounds from vent Tracheostomy, mechanically ventilated. minimal secretions in trach tube Abdomen: PEG tube in place. Soft, nondistended, nontender, positive bowel sounds. No guarding or rebound tenderness. Extremities: No edema. 2+ radial and dorsalis pedis pulses bilaterally. Skin: Warm. Dry. No rash or ecchymoses. Discharge Plan Plan Patient Disposition: Xfer [facility] Acute w/in Hosp Disposition Comment: Return to Sub-Acute Patient condition on transfer: Stable Care Plan Goals: -Follow up with PCP within 1 week of discharge, if you do not have a primary care physician you can come see us at the [facility] by calling [phone] -You have been prescribed antibiotics for 2 additional days, please complete the course -Continue rest of medications as previously prescribed -Return to the ED or call EMS if symptoms return and/or worsen Prescriptions/Referrals Prescriptions/Med Rec: New doxycycline hyclate 100 mg Recon Soln 100 mg IV BID 2 Days Qty: 4 0RF amoxicillin-pot clavulanate 875-125 mg tablet 1 tab PO BID 2 Days Qty: 4 0RF Mucinex DM 30-600 mg Tablet Extended Release 12 Hr 1 tab G-tube BID 7 Days Qty: 14 0RF Continued bisacodyl [Dulcolax (bisacodyl)] 10 mg suppository 10 mg MI PRN PRN (Reason: No BM Per Bowel Management Protocol) 365 Days Qty: 12 0RF Rx Instructions: Administer as needed on 6th shift, if MOM ineffective. ipratropium-albuterol 0.5 mg-3 mg(2.5 mg base)/3 mL solution for nebulization 3 ml INH Q6HRRT 30 Days Qty: 90 0RF polyethylene glycol 3350 17 gram powder in packet 17 g G-tube PRN PRN (Reason: No BM Per Bowel Management Protocol) 365 Days Qty: 14 0RF Label Comments: Administer as needed if 2nd round bowel protocol ineffective. Rx Instructions: Mix with 4oz of water before giving. Hold tube feeding for 30 minutes after administration. Notify provider if no results from Miralax. magnesium hydroxide [Milk of Magnesia] 400 mg/5 mL suspension 30 ml G-tube PRN PRN (Reason: Constipation) 365 Days Qty: 355 0RF Rx Instructions: CONC: 400MG/5ML Fleet Enema 19-7 gram/118 mL enema 133 ml MI PRN PRN (Reason: No BM Per Bowel Management Protocol) 365 Days Qty: 133 0RF Label Comments: If Dulcolax is ineffective on 3rd day / 7th shift, give Fleets enema per Bowel Management Protocol. Notify MD if no results from Enema. acetaminophen 325 mg tablet 325 mg G-tube Q6HR PRN (Reason: Pain) 30 Days Qty: 30 0RF Ear Wax Removal Drops 6.5 % drops 5 drp otic (ear) Q61D 284 Days Qty: 15 0RF Label Comments: 5 drops per ear at first med pass of shift. Then irrigate ears with NS at next med pass of each shift x 4 days for wax build up. Ear Wax Removal Drops 6.5 % drops 5 drp otic (ear) Q61D 284 Days Qty: 15 0RF Rx Instructions: 5 drops per ear at first med pass of shift. Then irrigate ears with NS at next med pass of each shift x 4 days for wax build up. *Start on the of the month, every two months. Ear Wax Removal Drops 6.5 % drops 5 drp otic (ear) Q61D 283 Days Qty: 15 0RF Label Comments: 5 drops per ear at first med pass of shift. Then irrigate ears with NS at next med pass of each shift x 4 days for wax build up. Ear Wax Removal Drops 6.5 % drops 5 drp otic (ear) Q61D 282 Days Qty: 15 0RF Label Comments: 5 drops per ear at first med pass of shift. Then irrigate ears with NS at next med pass of each shift x 4 days for wax build up. Ear Wax Removal Drops 6.5 % drops 5 drp otic (ear) Q61D 282 Days Qty: 15 0RF Rx Instructions: 5 drops per ear at first med pass of shift. Then irrigate ears with NS at next med pass of each shift x 4 days for wax build up. *Start on the of the month, every two months. Ear Wax Removal Drops 6.5 % drops 5 drp otic (ear) Q61D 283 Days Qty: 15 0RF Rx Instructions: 5 drops per ear at first med pass of shift. Then irrigate ears with NS at next med pass of each shift x 4 days for wax build up. *Start on the of the month, every two months. Ear Wax Removal Drops 6.5 % drops 5 drp otic (ear) Q61D 281 Days Qty: 15 0RF Label Comments: 5 drops per ear at first med pass of shift. Then irrigate ears with NS at next med pass of each shift x 4 days for wax build up. Ear Wax Removal Drops 6.5 % drops 5 drp otic (ear) Q61D 281 Days Qty: 15 0RF Label Comments: 5 drops per ear at first med pass of shift. Then irrigate ears with NS at next med pass of each shift x 4 days for wax build up. acetaminophen 325 mg tablet 650 mg G-tube Q4HR PRN (Reason: Fever > 100.0) 7 Days Qty: 7 0RF Label Comments: Not to exceed 3 grams of Tylenol in 24 hours from all sources No Action amoxicillin-pot clavulanate 875-125 mg tablet 875 mg G-tube BID 2 Days Qty: 4 0RF guaifenesin [Jayla-Tussin] 100 mg/5 mL liquid 300 mg G-tube BID 7 Days Qty: 105 0RF Label Comments: give 15ml = 300mg PGT BID x 7 days then re-eval. Rx Instructions: Conc: 100MG/5ML doxycycline hyclate 100 mg tablet 100 mg G-tube BID 2 Days Qty: 2 0RF Referrals: No Primary/Family,Physician [Primary Care Provider] Patient/Caregiver Discharge Instructions Other Discharge Diet Instructions: Jevity 1.2 at 70cc/hr, water flush at 30cc/hr per PEG tube Education Materials: What Is Pneumonia?, Treating Pneumonia, When You Have Pneumonia Print Language: Serbian Stand Alone Forms: Peri Award Info., Patient Portal Info Letter Discharge Order Discharge Orders: Discharge (Routine); Ordered 02/24/25 Ordered By: Sherman Cloud Quality Discharge Quality Measures VTE prophylaxis Attestestation MD Attestation I reviewed labs, imaging, EKG, home medications and prior available records. Face to face evaluation was performed by me. I have personally examined the patient and discussed assessment and plan with the IM team. I reviewed the resident note and agree with the plan with exceptions as below. Chronic hypoxic respiratory failure Anoxic brain injury History of cardiac arrest status post trach and PEG Ventilator associated pneumonia Continue ventilation Continue PEG tube care Initial blood culture grew gram-positive cocci: Likely contamination Repeat blood culture is negative to date Will discharge on Augmentin/doxycycline Time spent is 38 minutes. More than 50% of the time was spent on patient education and coordination of care.
[2025-02-24] MEDS: DOXYCYCLINE INJ 100 MG in SODIUM CHLORIDE 0.9% (POP) 100 ML IV (08:55)
[2025-02-24] MEDS: Magnesium Sulfate 4 GM Ivpb 4 GM/50 ML BAG IV (09:03)
[2025-02-24] MEDS: HEPARIN SOD INJ 5000 UNIT/ML VIAL SC (09:12)
[2025-02-24] MEDS: DOCUSATE SOD LIQD 100 MG/10 ML UDC GT (09:12)
[2025-02-24] MEDS: LANSOPRAZOLE 30 MG TAB.RAP.DR GT (09:12)
[2025-02-24] MEDS: guaiFENesin/DM TABLET 1 EACH GT (09:13)
[2025-02-24] MEDS: RINGERS LACTATED 1000 ML 500 ML 125 ML IV (09:13)
--- NOTE | 2025-02-24 09:41 | PC.SS ---
Follow up note: Patient has d/c orders for today. Physician team to contact Dr. Pleitez. Patient will need to return before 1p.m. Report # [id number]. SS will update floor nurse. No PASRR needed since patient is returning on day 4
[2025-02-24] MEDS: MAGNESIUM OXIDE 400 MG TABLET GT (11:23)
--- NOTE | 2025-02-24 12:30 | PC.NURSE ---
Called report to Charge Nurse Perla. Will transfer pt. around 1330 as requested.
--- NOTE | 2025-02-24 13:40 | PC.NURSE ---
Pt. transferred via bed, with Respiratory assisting with ventilator, to Sub-Acute. Transferred in stable condition, with all personal belongings, discharge packet, accompanied by [employer], Respiratory, and RN. IV and telemetry DC'd prior.
== END 2025-02-24 13:40 | disposition skilled nursing facility (03) | DRG 137 ==
LOC: SERX 02-20 00:56 → SERHOLD 02-20 02:21 → S2NX 02-20 08:25
PROVIDERS: Admitting Provider Student in an Organized Health Care Education/Training Program; Emergency Provider Emergency Medicine; Visit Provider Student in an Organized Health Care Education/Training Program
DX: J95.851 Ventilator associated pneumonia (principal); R40.3 Persistent vegetative state; G93.1 Anoxic brain damage, not elsewhere classified; K70.30 Alcoholic cirrhosis of liver without ascites; E83.42 Hypomagnesemia; F15.10 Other stimulant abuse, uncomplicated; J96.11 Chronic respiratory failure with hypoxia; J18.9 Pneumonia, unspecified organism; Z93.0 Tracheostomy status; D64.9 Anemia, unspecified; Z93.1 Gastrostomy status; Y84.8 Other medical procedures as the cause of abnormal reaction of the patient, or of later complication, without mention of misadventure at the time of the procedure; B96.89 Other specified bacterial agents as the cause of diseases classified elsewhere
CPT/HCPCS: 36415; 51701; 51702; 71045; 80053; 80202; 81001; 83605; 83690; 83735; 83880; 84100; 84145; 84484; 85014; 85018; 85025; 85610; 85730; 87040; 87077; 87081; 87186; 87205; 87635; 93005; 93306; 94003; 96361; 96365; 96366; 96375; 99285; A4314; J0692; J0713; J1644; J2470; J2543; J3373; J3375; J3475; J3480; J3490; J7050; J7120; A9270

== ENCOUNTER 2025-03-24 09:25 | Inpatient (IN) | payer OTHER, SELFPAY ==
[2025-03-24] VITALS (56 sets, daily range): BP systolic 102–147; BP diastolic 59–99; PULSE 70–136; RESP 3–60; TEMP 36.8–38; O2SAT 94–100; BMI 23.1
--- NOTE | 2025-03-24 10:24 | EDNOTE_ITS ---
ED SOB =RME/HPI General Chief Complaint: Shortness of Breath/Dyspnea Stated Complaint: RESP DISTRESS Time Seen by Provider: 03/24/25 10:12 Arrival date/time: 03/24/25 09:25 RME / HPI RME / HPI Narrative: 34 year old male with history of cardiac arrest with prolonged resuscitation resulting in severe anoxic encephalopathy, persistent vegetative state, chronic respiratory failure s/p tracheostomy with ventilator dependance, alcoholic ci rrhotic liver disease presents to the ED from the subacute unit within this facility for evaluation of difficulty breathing today. Per RN, subacute staff reported patient has appeared to have difficulty breathing since 8:30 AM today. States at 09:00 AM noted to have a fever and given Tylenol in addition to cough medication. There were no change in symptoms, prompting visit to the ED. Staff also reported patient to be diaphoretic. Related Data Previous Rx's ?Medication ?Instructions ?Recorded bisacodyl 10 mg rectal suppository 10 mg SC PRN PRN No BM Per Bowel 02/11/25 (Dulcolax (bisacodyl)) Management Protocol 365 days #12 ea magnesium hydroxide 400 mg/5 mL 30 ml G-tube PRN PRN C onstipation 02/11/25 oral suspension (Milk of Magnesia) 365 days #355 mL polyethylene glycol 3350 17 gram 17 g G-tube PRN PRN N o BM Per 02/11/25 oral powder packet Bowel Management Protocol 36 5 days #14 ea sodium phosphates 19 gram-7 133 ml SC PRN PRN No BM Pe r Bowel 02/11/25 gram/118 mL enema (Fleet Enema) Management Protocol 36 5 days #133 mL amoxicillin 875 mg-potassium 1 tab PO BID 2 days #4 ta bs 02/24/25 clavulanate 125 mg tablet dextromethorphan-guaifenesin 30 1 tab G-tube BID 7 day s #14 tabs 02/24/25 mg-600 mg tablet extended [id number] hr (Mucinex DM) doxycycline hyclate 100 mg 100 mg IV BID 2 days #4 ea 02/24/25 intravenous powder for solution guaifenesin 100 mg/5 mL oral 300 mg (15 mL) G-tube Q6H R PRN 03/03/25 liquid (Jayla-Tussin) Cough 285 days carbamide peroxide 6.5 % ear drops 5 drp otic (ear) Q6 1D 284 days #15 03/04/25 (Ear Wax Removal Drops) mL carbamide peroxide 6.5 % ear drops 5 drp otic (ear) Q6 1D 284 days #15 03/04/25 (Ear Wax Removal Drops) mL carbamide peroxide 6.5 % ear drops 5 drp otic (ear) Q6 1D 283 days #15 03/05/25 (Ear Wax Removal Drops) mL carbamide peroxide 6.5 % ear drops 5 drp otic (ear) Q6 1D 283 days #15 03/05/25 (Ear Wax Removal Drops) mL carbamide peroxide 6.5 % ear drops 5 drp otic (ear) Q6 1D 282 days #15 03/06/25 (Ear Wax Removal Drops) mL carbamide peroxide 6.5 % ear drops 5 drp otic (ear) Q6 1D 282 days #15 03/06/25 (Ear Wax Removal Drops) mL carbamide peroxide 6.5 % ear drops 5 drp otic (ear) Q6 1D 281 days #15 03/07/25 (Ear Wax Removal Drops) mL carbamide peroxide 6.5 % ear drops 5 drp otic (ear) Q6 1D 281 days #15 03/07/25 (Ear Wax Removal Drops) mL ipratropium 0.5 mg-albuterol 3 mg 3 ml INH Q6HRRT 30 d ays 03/13/25 (2.5 mg base)/3 mL nebulization soln acetaminophen 325 mg tablet 650 mg (2 x 325 mg) G-tube Q6HR 03/20/25 PRN Pain 30 days #30 tabs Allergies Allergy/AdvReac Type Severity Reaction Status Date / Time No Known Allergies Allergy Verified 02/12/25 03:20 Review of Systems Review of Systems ROS Unobtainable: unobtainable due to mental status and unobtainable due to medical condition Past Medical History Past Medical History NEUROLOGIC: Positive Neurological Disorders (pt. on vent, non-verbal, vegetative state) CARDIAC: Positive Cardiac Disorders (Cardiac Arrest) RESPIRATORY: Positive Pneumonia GASTROINTESTINAL: Positive Gastrointestinal Disorders Surgical History SURGICAL: Negative Cardiac Surgery, Endocrine Surgery, Ear Surgery, Abdominal Surgery, Nephrectomy or Joint Replacement Social History SMOKING STATUS: Never smoker ED Exam Narrative Physical exam: Generally patient is comatose cachectic ill-appearing and shivering, neck shows tracheostomy to be in place, eyes show pupils are midrange and reactive bilaterally, lungs show rhonchorous breath sounds bilaterally with fair to good air exchange, heart tachycardic rate with regular rhythm, abdomen soft distended with G-tube to be in place, extremities show muscle wasting throughout, neurologic exam shows the patient to be in his chronic persistent vegetative state Course Quality Measures Possible source: other Blood cultures ordered: yes Antibiotic ordered: Yes Pertinent labs: 03/24/25 03/24/25 10:18 10:30 Lactic Acid 4.0 H mMol/L (0.4-2.0) Procalcitonin 0.08 ng/ml (0.0-0.49) sepsis Orders Category Date Time Status EKG (ED ONLY) *Do not use* NOW Care 03/24/25 10:25 Completed EKG (ED Only) Stat Exams 03/24/25 10:25 Draft XR chest 1V portable Stat Exams 03/24/25 10:25 Completed Blood Culture (Lab) Stat Lab 03/24/25 10:25 Received CBC Stat Lab 03/24/25 10:18 Completed CMP [Comprehensive Metabolic Panel] Stat Lab 03/24/25 10:30 Completed COVID-19 Antigen (In-House) Stat Lab 03/24/25 11:23 Completed FLU A&B [Influenza A & B Rapid Panel] Stat Lab 03/24/25 11:21 Completed Lactic Acid [Lactate (Lactic Acid)] Stat Lab 03/24/25 10:18 Results MRSA Nasal Screen Stat Lab 03/24/25 12:20 Ordered Procalcitonin Stat Lab 03/24/25 10:30 Completed RSV [Respiratory Syncytial Virus Ag] Stat Lab 03/24/25 11:23 Completed Troponin I Stat Lab 03/24/25 10:30 Completed UA [Urinalysis] Stat Lab 03/24/25 11:47 Completed Cefepime Inj [Maxipime Inj] 1 gm Med 03/24/25 12:00 Discontinued SODIUM CHLORIDE 0.9% (Popper) [Ns 0.9% (P)] 50 ml IV X1 Sodium Chloride 0.9% 1000 ml [Ns] 1,000 ml Med 03/24/25 10:23 Discontinued IV 999 mls/hr Sodium Chloride 0.9% 1000 ml [Ns] 1,000 ml Med 03/24/25 11:03 Discontinued IV 999 mls/hr Vancomycin Inj 1,500 mg Med 03/24/25 13:00 Active Sodium Chloride 0.9% 500 ml [Ns] 500 ml IV X1 Vancomycin Pharmacy to Dose Med 03/24/25 12:15 Active 1 each IV QDAY PRN Vital Signs Vital signs: Vital Signs Temperature 100.4 F 03/24/25 09:33 Pulse Rate 136 H 03/24/25 09:33 Respiratory Rate 33 H 03/24/25 09:33 Blood Pressure 136/91 H 03/24/25 09:33 Pulse Oximetry (%) 97 03/24/25 09:33 Oxygen Delivery Method Mechanical Ventilation 03/24/25 09:33 Shortness of Breath / Dyspnea MDM Narrative MDM Narrative:: Mohini Garcia, benson scribing for and in the presence of Dr. Granados. Patient apparently had a temperature of 103 degrees in the subacute area. They gave him Tylenol down the G-tube. Here he arrived with a temperature 100.4 degrees. He was tachycardic. Clinically has pneumonia. Septic workup was initiated. Blood cultures are obtained. Lactic acid was 4.0. Patient received 2 L of IV normal saline hydration. Clinically has pneumonia. Chest x-ray showed no obvious consolidation. He received cefepime 1 g IV and pharmacy dose vancomycin IV. He showed overall improvement here in the emergency room. COVID is negative. I discussed this case with the hospitalist and the patient will be admitted to the hospital for further treatment and evaluation. Patient is DO NOT RESUSCITATE CODE STATUS Patient data External records reviewed:: [facility] previous records Clinical information provided by:: patient Social determinants that could affect healthcare access:: housing (subacute resident ) Patient has the following chronic illnesses:: cardiac arrest with prolonged resuscitation resulting in severe anoxic encephalopathy, persistent vegetative state, chronic respiratory failure s/p tracheostomy with ventilator dependance, alcoholic cirrhotic liver disease How is presenting disease/condition affected by chronic disease/condition?: exacerbated by Evaluation data The following diagnostics were reviewed and interpreted by me:: lab results, radiology exam(s) and EKG tracing(s) Lab and/or radiology exams considered but not ordered:: None Interpretation Summary: None Medications / Prescriptions Medications or Prescriptions considered but not ordered:: None Medication administrations:: Medication Administration History Vancomycin HCl 1,500 mg/ (Sodium Chloride) 500 mls @ 250 mls/hr IV X1 ONE Stop: 03/24/25 14:59 Pharmacy Consult (Vancomycin Pharmacy To Dose 1 Each Each) 1 each IV QDAY PRN PRN Reason: SEPSIS Stop: 04/23/25 12:14 Discontinued Medications Sodium Chloride (Ns) 1,000 mls @ 999 mls/hr IV .Q1H1M ONE Stop: 03/24/25 11:23 Last Infusion: 03/24/25 11:17 Dose: Infused Documented By: Admin: 03/24/25 10:32 Dose: 999 mls/hr Documented By: JAMES Sodium Chloride (Ns) 1,000 mls @ 999 mls/hr IV .Q1H1M ONE Stop: 03/24/25 12:03 Last Infusion: 03/24/25 12:54 Dose: Infused Documented By: Admin: 03/24/25 11:11 Dose: 999 mls/hr Documented By: JAMES Cefepime HCl 1 gm/ Sodium (Chloride) 50 mls @ 100 mls/hr IV X1 ONE Stop: 03/24/25 12:29 See above Consultations Consultation(s) initiated? (list below): Yes Diagnosis Shortness of Breath Differential Diagnosis: acute exacerbation of chronic obstructive airways disease, congestive heart failure, community acquired pneumonia and other (febrille illness, UTI) Most likely diagnosis given after review of the tests above:: None Admission Indicated Admission indicated?: indicated Admission Request Was there a request for admission?: Yes Admission Attestation Admission request attestation: Discussed case with [] from Hospitalist service regarding admission. Discussed patients ED course, exam findings, labs, and radiology results. The Hospitalist [agrees,declines] to accept the patient for admission. Disposition Plan Disposition Plan: Admit Discharge Plan Plan Patient Disposition: Admit Acute Care w/in Hospital Prescriptions/Referrals Prescriptions/Med Rec: No Action bisacodyl [Dulcolax (bisacodyl)] 10 mg suppository 10 mg SC PRN PRN (Reason: No BM Per Bowel Management Protocol) 365 Days Qty: 12 0RF Rx Instructions: Administer as needed on 6th shift, if MOM ineffective. polyethylene glycol 3350 17 gram powder in packet 17 g G-tube PRN PRN (Reason: No BM Per Bowel Management Protocol) 365 Days Qty: 14 0RF Label Comments: Administer as needed if 2nd round bowel protocol ineffective. Rx Instructions: Mix with 4oz of water before giving. Hold tube feeding for 30 minutes after administration. Notify provider if no results from Miralax. magnesium hydroxide [Milk of Magnesia] 400 mg/5 mL suspension 30 ml G-tube PRN PRN (Reason: Constipation) 365 Days Qty: 355 0RF Rx Instructions: CONC: 400MG/5ML Fleet Enema 19-7 gram/118 mL enema 133 ml SC PRN PRN (Reason: No BM Per Bowel Management Protocol) 365 Days Qty: 133 0RF Label Comments: If Dulcolax is ineffective on 3rd day / 7th shift, give Fleets enema per Bowel Management Protocol. Notify MD if no results from Enema. Ear Wax Removal Drops 6.5 % drops 5 drp otic (ear) Q61D 284 Days Qty: 15 0RF Label Comments: 5 drops per ear at first med pass of shift. Then irrigate ears with NS at next med pass of each shift x 4 days for wax build up. Ear Wax Removal Drops 6.5 % drops 5 drp otic (ear) Q61D 284 Days Qty: 15 0RF Rx Instructions: 5 drops per ear at first med pass of shift. Then irrigate ears with NS at next med pass of each shift x 4 days for wax build up. *Start on the of the month, every two months. Ear Wax Removal Drops 6.5 % drops 5 drp otic (ear) Q61D 283 Days Qty: 15 0RF Label Comments: 5 drops per ear at first med pass of shift. Then irrigate ears with NS at next med pass of each shift x 4 days for wax build up. Ear Wax Removal Drops 6.5 % drops 5 drp otic (ear) Q61D 283 Days Qty: 15 0RF Rx Instructions: 5 drops per ear at first med pass of shift. Then irrigate ears with NS at next med pass of each shift x 4 days for wax build up. *Start on the 20th of the month, every two months. Ear Wax Removal Drops 6.5 % drops 5 drp otic (ear) Q61D 282 Days Qty: 15 0RF Label Comments: 5 drops per ear at first med pass of shift. Then irrigate ears with NS at next med pass of each shift x 4 days for wax build up. Ear Wax Removal Drops 6.5 % drops 5 drp otic (ear) Q61D 282 Days Qty: 15 0RF Rx Instructions: 5 drops per ear at first med pass of shift. Then irrigate ears with NS at next med pass of each shift x 4 days for wax build up. *Start on the of the month, every two months. Ear Wax Removal Drops 6.5 % drops 5 drp otic (ear) Q61D 281 Days Qty: 15 0RF Label Comments: 5 drops per ear at first med pass of shift. Then irrigate ears with NS at next med pass of each shift x 4 days for wax build up. Ear Wax Removal Drops 6.5 % drops 5 drp otic (ear) Q61D 281 Days Qty: 15 0RF Label Comments: 5 drops per ear at first med pass of shift. Then irrigate ears with NS at next med pass of each shift x 4 days for wax build up. guaifenesin [Jayla-Tussin] 100 mg/5 mL liquid 300 mg G-tube Q6HR PRN (Reason: Cough) 285 Days 0RF Label Comments: Give [id number] Rx Instructions: Conc: 100MG/5ML ipratropium-albuterol 0.5 mg-3 mg(2.5 mg base)/3 mL solution for nebulization 3 ml INH Q6HRRT 305 Days 0RF acetaminophen 325 mg tablet 650 mg G-tube Q6HR PRN (Reason: Pain) 268 Days Qty: 30 0RF Rx Instructions: (Give 325mg [id number]) NTE APAP 3gms/24hours doxycycline hyclate 100 mg Recon Soln 100 mg IV BID 2 Days Qty: 4 0RF amoxicillin-pot clavulanate 875-125 mg tablet 1 tab PO BID 2 Days Qty: 4 0RF Mucinex DM 30-600 mg Tablet Extended Release 12 Hr 1 tab G-tube BID 7 Days Qty: 14 0RF Referrals: No Primary/Family,Physician [Primary Care Provider] - In 1 week Problem List Clinical Impression: Persist vegetative state, Pneumonia, Sepsis Patient/Caregiver Discharge Instructions Print Language: Maltese Stand Alone Forms: Peri Award Info., Patient Portal Info Letter
--- NOTE | 2025-03-24 10:25 | XR_ITS ---
EXAMINATION: AP chest single view TECHNIQUE: AP portable semiupright chest single view Date and time: March 24, 2025, 10:47 a.m., comparison February 19, 2025 INDICATIONS: Chest pain today. FINDINGS: Normal heart size Mild vascular congestion. No lobar pneumonia Reduced inspiratory effort Tracheostomy tube tip 3.8 cm above harmony IMPRESSION: Mild vascular congestion No lobar pneumonia
--- NOTE | 2025-03-24 10:25 | EKG_ITS ---
[facility] Test Date: 2025-03-24 Pat Name: CHAVEZ POND Department: Room: - Gender: Male Hitting Coach: : 1990 Requested By: Estrada Biswas Order Number: [id number] Reading MD: Estrada Biswas Measurements Intervals [place] Rate: 105 P: 58 SC: 149 QRS: 54 QRSD: 98 T: 30 QT: 338 QTc: 448 Interpretive Statements SINUS TACHYCARDIA ABNORMAL RHYTHM ECG Compared to ECG 02/20/2025 05:28:35 Sinus rhythm no longer present /store/S0/[id number]
[2025-03-24] MEDS: SODIUM CHLORIDE 0.9% 1000 ML 1,000 ML 999 ML IV ×2 (10:32→11:11)
[2025-03-24 10:47] LABS: Basophils # (Auto) 0.0 Thou/mm3 (0.0-0.2); Basophils % (Auto) 0 % (0-2.5); Eosinophils # (Auto) 0.1 Thou/mm3 (0.0-0.5); Eosinophils % (Auto) 1 % (0-10); Hematocrit 41.0 % (41.0-53.0); Hemoglobin 13.5 g/dL (13.5-16.0); Immature Granulocytes Auto 0.04 Thou/mm3 (0.00-0.00); Lymphocytes # (Auto) 1.0 Thou/mm3 (1.0-4.8); Lymphocytes % (Auto) 10 % (10-50); Mean Corpuscular HGB Conc 32.9 g/dl (31.0-37.0); Mean Corpuscular Hemoglobin 27.4 pg (25.0-35.0); Mean Corpuscular Volume 83 fL (80-100); Monocytes # (Auto) 0.6 Thou/mm3 (0.0-0.8); Monocytes % (Auto) 6 % (0-12); Neutrophils # (Auto) 8.8 Thou/mm3 (1.8-7.7); Neutrophils % (Auto) 84 % (37-80); Nucleated Red Blood Cell # 0.00 Thou/mm3 (0.00-0.00); Nucleated Red Blood Cell % 0 /100 WBC (0); Platelet Count 103 Thou/mm3 (140-440); RDW Standard Deviation 51.8 fL (35.1-43.9); Red Blood Count 4.92 Miln/mm3 (4.50-5.90); White Blood Count 10.5 Thou/mm3 (3.8-10.6)
[2025-03-24 10:51] LABS: Lactate (Lactic Acid) 4.0 mMol/L (0.4-2.0)
[2025-03-24 11:19] LABS: Alanine Aminotransferase 35 U/L (10-49); Albumin, Serum 4.2 gm/dL (3.5-5.0); Albumin/Globulin Ratio 0.9 (1.2-2.2); Alkaline Phosphatase 93 U/L (46-116); Anion Gap 12 (7-16); Aspartate Amino Transferase 84 U/L (0-34); BUN/Creatinine Ratio 17 Ratio (12-20); Bilirubin,Total 2.6 mg/dL (0.3-1.2); Blood Urea Nitrogen 10 mg/dL (9-23); Calcium 9.8 mg/dL (8.3-10.6); Calcium (Corrected) 9.8 mg/dL (8.5-10.1); Carbon Dioxide 23.4 mMol/L (20.0-31.0); Chloride 102 mMol/L (98-107); Creatinine (Component) 0.6 mg/dL (0.6-1.3); Estimated Creatinine Clearance 155.1 mL/min (>60); Globulin 4.9 gm/dL (2.3-3.5); Glucose 91 mg/dL (74-106); Osmolality,Calculated 272 (275-295); Potassium 5.4 mMol/L (3.4-5.1); Procalcitonin 0.08 ng/ml (0.0-0.49); Sodium 137 mMol/L (136-145); Total Protein 9.1 gm/dL (5.7-8.2); Troponin I < 0.002 ng/mL (0.0-0.045); eGFR > 60 See Note
[2025-03-24 11:51] LABS: Collection Type, Urine Catheter
[2025-03-24 11:55] LABS: COVID-19 Antigen (In-House) Negative (Negative)
[2025-03-24 11:59] LABS: Bilirubin,Urine Negative (Negative); Blood,Urine Negative (Negative); Clarity,Urine Clear (Clear/Hazy); Color,Urine Yellow (Lt Yel-Yel); Glucose, Urine Negative (Negative); Hyaline Casts,Urine < 1 /hpf (0-1); Ketones,Urine Negative (Negative); Leukocyte Esterase,Urine Negative (Negative); Nitrite,Urine Negative (Negative); PH,Urine 6.5 (5.0-7.0); Protein,Urine Negative (Neg - Trace); RBC,Urine < 1 /hpf (0-3); Specific Gravity,Urine 1.010 (1.001-1.035); Squamous Epithelial Cell,Urine < 1 /hpf (0-5); Urobilinogen,Urine Negative mg/dL (0.0-1.0); WBC,Urine < 1 /hpf (0-5)
[2025-03-24 12:02] LABS: Influenza A Ag Negative; Influenza B Ag Negative
[2025-03-24 12:04] LABS: Respiratory Syncytial Virus Ag Negative (Negative)
[2025-03-24] MEDS: CEFEPIME INJ 1 GM in SODIUM CHLORIDE 0.9% (Popper) 50 ML IV (13:15)
[2025-03-24 13:42] LABS: Reflex Lactate? Y
[2025-03-24 14:04] LABS: Lactic Acid, 3 HR 0.9 mMol/L (0.4-2.0)
--- NOTE | 2025-03-24 14:15 | PC.NURSE ---
pharmacy called for order of JESS.
[2025-03-24] MEDS: Vancomycin Inj 1,500 MG in SODIUM CHLORIDE 0.9% 500 ML 500 ML 250 MG IV (14:44)
--- NOTE | 2025-03-24 14:56 | ESHP_ITS ---
<Statement entered by Erich Yu MD - 03/24/25 20:39> I saw and examined patient personally and supervised PGY 1 resident, Dr. Causey with formulating a management plan. I agree with the documentation with the exceptions as listed below. 34 year old man in persistent vegetative state pMHX alcoholic cirrhotic liver disease/methamphetamine abuse s/p cardiac arrest with prolonged resuscitation resulting in anoxic encephalopathy referred from subacute due to fever up to 101F. Patient is mechanically ventilated, has a PEG in place, is non-verbal and comatose in a persistently vegetative state. Admitted for treatment of management of ventilator associated pneumonia. Problem list: 1. Ventilator associated pneumonia 2. SIRS 3/4 3. Alcoholic cirrhosis with thrombocytopenia and hyperbilirubinemia 4. History of anoxic brain injury with paraplegia chronically trached and PEG Patient presented today from subacute with temperature 101F, tachypneic and tachycardic. Based on previous culture results patient was started on Zosyn azithromycin IV for empiric coverage of ventilator associated pneumonia atypical organisms due to chest x-ray findings of bilateral reticular opacities. Sputum, blood and urine cultures were ordered. Plan of care discussed with Attending Dr. Anne Yu MD PGY 2 Disclaimer: This note was dictated by speech recognition. Minor errors in medical aides teacher may be present due to voice recognition software. Documentation for date of: 03/24/25 HPI History of Present Illness History of present illness: 34 year old male with history of cardiac arrest with prolonged resuscitation resulting in severe anoxic encephalopathy, persistent vegetative state, chronic respiratory failure s/p tracheostomy with ventilator dependance, alcoholic cirrhotic liver disease presented to the ED from the subacute unit within this facility for evaluation of difficulty breathing today. Per RN, subacute staff reported patient has appeared to have difficulty breathing since 8:30 AM today. States at 09:00 AM noted to have a fever of 103F and given Tylenol in addition to cough medication. There were no change in symptoms, prompting visit to the ED. Staff also reported patient to be diaphoretic. ED Course Summary Vitals: BP 136/91, HR 136, RR 33, T100.4, O2 96% mechanical ventilation FiO2 35% Labs: Hgb 13.5, WBC 10.5, PLT 103, K+ 5.4, bicarb 23.4, T. bili 2.6, Imaging: EKG showed sinus tachycardia. Chest x-ray showed no obvious consolidation Treatment: cefepime 1 g IV and pharmacy dose vancomycin Patient arrived with a temperature of 100.4 degrees. He was tachycardic. Clinically had pneumonia. Septic workup was initiated. Blood cultures were obtained. Lactic acid was 4.0. Patient received 2 L of IV normal saline hydration. COVID negative. UA negative Code: Full Insulin: None Medical Hx: see above Medications: Per sub acute Allergies: NKDA Surgical history: Trach'd PEG'd Fhx: Noncontibutory Living: On subacute Alcohol: Former alcoholic Recreational drugs: Meth Patient admitted for: Pneumonia All 12 systems reviewed and were negative except otherwise stated in HPI. Exam Vital Signs Temp Pulse Resp BP Pulse Ox O2 Del Method FiO2 99.3 F 89 24 H 124/79 96 Trach Collar 35 03/24/25 11:45 03/24/25 14:08 03/24/25 11:45 03/24/25 11:45 03/24/25 14:08 03/24/25 11:45 03/24/25 14:08 Narrative Exam GENERAL APPEARANCE: AOx0 (chronic persistant vegetative state). NAD, activity normal for age, well developed/ well nourished, no cyanosis, pallor, or diaphoresis. Trach'd and PEG'd, cachetic ill appearing and shivering. HEENT: Normocephalic atraumatic, no facial trauma, neck is supple. Lids/conjunctiva normal. Mucous membranes moist, nares normal, lips/teeth normal uvula midline without oral pharyngeal erythema, exudate or swelling TMs normal bilaterally. No lymphangitis/lymphedema. CARDIAC: tachycardic and regular rhythm S1+S2 heard. No murmurs, rubs, or gallops noted RESPIRATORY: Tracheostomy on ventilation support. Inspiratory rhonchi in b/l lung harp, especially closer to midline. Difficult to auscultate due to vegetative state and mechanical ventilation. ABDOMINAL: NBS. Soft, ND/NT. No evidence of fluid wave. No pulsatile masses on exam, rebound tenderness, Keene sign or pain over Mcburney's point. +PEG tube MUSCLES/EXTREMITIES: No abnormal range of motion, no swelling. Muscle wasting. DERM: Warm, pink and dry. No rashes, dermatoses, petechiae or lesions. NEUROLOGICAL: Vegetative state PSYCH: unable to obtain Results: Labs 03/25/25 04:47 03/25/25 04:47 Labs: Short CBC 03/24/25 Range/Units 10:18 WBC 10.5 (3.8-10.6) Thou/mm3 Hgb 13.5 (13.5-16.0) g/dL Hct 41.0 (41.0-53.0) % Plt Count 103 L (140-440) Thou/mm3 BMP 03/24/25 10:30 Sodium 137 Potassium 5.4 H Chloride 102 Carbon Dioxide 23.4 BUN 10 Creatinine 0.6 Glucose 91 Calcium 9.8 Cardiac Enzymes 03/24/25 Range/Units 10:30 Troponin I < 0.002 (0.0-0.045) ng/mL Liver Function 03/24/25 Range/Units 10:30 Total Bilirubin 2.6 H (0.3-1.2) mg/dL AST 84 H (0-34) U/L ALT 35 (10-49) U/L Alkaline Phosphatase 93 (46-116) U/L Albumin 4.2 (3.5-5.0) gm/dL Urine 03/24/25 Range/Units 11:47 Urine Color Yellow (Lt Yel-Yel) Urine Clarity Clear (Clear/Hazy) Urine pH 6.5 (5.0-7.0) Ur Specific [place] 1.010 (1.001-1.035) Urine Protein Negative (Neg - Trace) Urine Glucose (UA) Negative (Negative) Quality Measures Quality Measures sepsis Current suspected stage: ruled out Possible source: other Blood cultures ordered: yes Antibiotic ordered: Yes Medications Home Medications and Allergies Allergies Allergy/AdvReac Type Severity Reaction Status Date / Time No Known Allergies Allergy Verified 02/12/25 03:20 Visit Medications Vancomycin HCl 1,500 mg/ (Sodium Chloride) 500 mls @ 250 mls/hr IV X1 ONE Stop: 03/24/25 14:59 Last Admin: 03/24/25 14:44 Dose: 250 mls/hr Piperacillin/Tazobactam/Dextrose (Zosyn) 3.375 gm in 50 mls @ 12.5 mls/hr IV Q8HR CRISTY; Protocol Stop: 03/31/25 21:59 Piperacillin/Tazobactam/Dextrose (Zosyn) 3.375 gm in 50 mls @ 100 mls/hr IV X1 ONE; Protocol Stop: 03/24/25 15:14 Pharmacy Consult (Vancomycin Pharmacy To Dose 1 Each Each) 1 each IV QDAY PRN PRN Reason: SEPSIS Stop: 04/23/25 12:14 Discontinued Medications Sodium Chloride (Ns) 1,000 mls @ 999 mls/hr IV .Q1H1M ONE Stop: 03/24/25 11:23 Last Infusion: 03/24/25 11:17 Dose: Infused Sodium Chloride (Ns) 1,000 mls @ 999 mls/hr IV .Q1H1M ONE Stop: 03/24/25 12:03 Last Infusion: 03/24/25 12:54 Dose: Infused Cefepime HCl 1 gm/ Sodium (Chloride) 50 mls @ 100 mls/hr IV X1 ONE Stop: 03/24/25 12:29 Last Infusion: 03/24/25 14:09 Dose: Infused Sodium Chloride (Sodium Chloride Rt 10% 15 Ml Nebu) 5 ml INH X1 ONE Stop: 03/24/25 13:43 Assessment & Plan Plan 34 year old man in persistent vegetative state pMHX alcoholic cirrhotic liver disease/methamphetamine abuse s/p cardiac arrest with prolonged resuscitation resulting in anoxic encephalopathy referred from subacute due to fever up to 101F. Patient is mechanically ventilated, has a PEG in place, is non-verbal and comatose in a persistently vegetative state. # Possible Ventilator-Associated Pneumonia versus aspiration pneumonia #SIRS 2/4 Clinical picture meets 2/4 SIRS criteria: T 100.4 (>100.9 or <96.8F), RR 24 (>20/min), HR 136 (>90/min), WBC 10.5 (>12 or <4K or Bands >10%). source of infection is in lungs evidenced by CXR enhanced vascular and interstitial markings. LA 4.0 ->0.9 UA was negative. ED gave cefepime IV 1g and vancomycin (pharmacy). Patient came in and found to have 2 or more SIRS criteria and was evaluated for sepsis. However, based upon further work-up, sepsis was ruled out. Plan: -Sputum cx:___ -Blood cx:___ -Zosyn 3.375g Q8HR (03/24 - -Azithromycin 500mg (03/24) and 250mg (03/25 -) -DC'ed Vancomycin pharm dosing -DuoNeb Q6h #Hx of vegetative state #Trach'd and Peg'd Plan: -Review subacute order set -Dietitian referral in -Continuous tube feeding at 10cc/h with water flushes @25mL/h #Thrombocytopenia #Hyperbilirubinemia #Cirrhosis US liver (02/14/2025) showed moderate hepatomegaly, cirrhosis, fatty infiltration with no focal liver lesions. T. bili 2.6, AST 84, Plt 103 -Monitor LFT on AM labs Health Maintenance: Code status: Full DVT prophylaxis: Lovenox [place] 40mg Qday GI prophylaxis: Famotidine Diet: Dietitian referral in [place]: yes Lines: PIV Supplemental O2: Mechanical ventilation Disposition: Tele This case was discussed with my attending physician, Dr. Rodríguez, and senior resident, Dr Yu. Even though this this note was carefully revised there may still be minor errors in medical aides teacher due to voice recognition software. Harshad Causey DO PGY I Attending Provider Attestation/Addendum I reviewed labs, imaging, EKG, home medications and prior available records. Face to face evaluation was performed by me. I have personally examined the patient and discussed assessment and plan with the IM team. I reviewed the resident note and agree with the plan with exceptions as below. Anoxic brain injury secondary to cardiac arrest Status post PEG tube Acute on chronic hypoxic respiratory failure Aspiration pneumonia versus ventilator associated pneumonia Lactic acidosis, resolved Transaminitis Thrombocytopenia Will cover with Zosyn and doxycycline Send sputum and blood cultures Send cocci IgM Monitor LFTs Monitor CBC
--- NOTE | 2025-03-24 15:38 | PC.DIETICIAN ---
Nutrition prescription Jevity 1.2 at 20 ml/hr via PEG tube by pump. Advance 10 ml every 8 hrs to goal rate of 70 ml/hr x 24 hrs. If no IV fluids, water flushes of 25 ml/hr (or per MD). Provides: 2015 kcal, 93 g prot, 1355 ml free water, 1680 ml total volume.
[2025-03-24] MEDS: ENOXAPARIN SOD INJ 40 MG/0.4 ML SYRINGE SC (18:03)
[2025-03-24] MEDS: PIPER/TAZO 3.375 GM PREMIX 3.375 GM/50 ML BAG IV ×2 (18:03→21:38)
[2025-03-24] MEDS: AZITHROMYCIN SUSP 200 MG/5 ML 500 MG GT (18:26)
[2025-03-25] VITALS (13 sets, daily range): BP systolic 115–142; BP diastolic 75–92; PULSE 74–114; RESP 17–28; TEMP 36.1–36.8; O2SAT 95–98; BMI 23.1
[2025-03-25 05:36] LABS: Basophils # (Auto) 0.0 Thou/mm3 (0.0-0.2); Basophils % (Auto) 0 % (0-2.5); Eosinophils # (Auto) 0.1 Thou/mm3 (0.0-0.5); Eosinophils % (Auto) 1 % (0-10); Hematocrit 35.8 % (41.0-53.0); Hemoglobin 11.8 g/dL (13.5-16.0); Immature Granulocytes Auto 0.01 Thou/mm3 (0.00-0.00); Lymphocytes # (Auto) 0.9 Thou/mm3 (1.0-4.8); Lymphocytes % (Auto) 14 % (10-50); Mean Corpuscular HGB Conc 33.0 g/dl (31.0-37.0); Mean Corpuscular Hemoglobin 28.1 pg (25.0-35.0); Mean Corpuscular Volume 85 fL (80-100); Monocytes # (Auto) 0.5 Thou/mm3 (0.0-0.8); Monocytes % (Auto) 8 % (0-12); Neutrophils # (Auto) 4.9 Thou/mm3 (1.8-7.7); Neutrophils % (Auto) 77 % (37-80); Nucleated Red Blood Cell # 0.00 Thou/mm3 (0.00-0.00); Nucleated Red Blood Cell % 0 /100 WBC (0); Platelet Count 97 Thou/mm3 (140-440); RDW Standard Deviation 52.9 fL (35.1-43.9); Red Blood Count 4.20 Miln/mm3 (4.50-5.90); White Blood Count 6.4 Thou/mm3 (3.8-10.6)
[2025-03-25] MEDS: PIPER/TAZO 3.375 GM PREMIX 3.375 GM/50 ML BAG IV ×3 (05:41→21:49)
[2025-03-25 06:17] LABS: Alanine Aminotransferase 25 U/L (10-49); Albumin, Serum 3.5 gm/dL (3.5-5.0); Albumin/Globulin Ratio 0.9 (1.2-2.2); Alkaline Phosphatase 81 U/L (46-116); Anion Gap 13 (7-16); Aspartate Amino Transferase 53 U/L (0-34); BUN/Creatinine Ratio 14 Ratio (12-20); Bilirubin,Total 2.5 mg/dL (0.3-1.2); Blood Urea Nitrogen 7 mg/dL (9-23); Calcium 9.0 mg/dL (8.3-10.6); Calcium (Corrected) 9.4 mg/dL (8.5-10.1); Carbon Dioxide 21.0 mMol/L (20.0-31.0); Chloride 107 mMol/L (98-107); Creatinine (Component) 0.5 mg/dL (0.6-1.3); Estimated Creatinine Clearance 186.1 mL/min (>60); Globulin 3.9 gm/dL (2.3-3.5); Glucose 82 mg/dL (74-106); Magnesium 1.3 mg/dL (1.6-2.6); Osmolality,Calculated 278 (275-295); Phosphorous 4.0 mg/dL (2.4-5.1); Potassium 3.4 mMol/L (3.4-5.1); Sodium 141 mMol/L (136-145); Total Protein 7.4 gm/dL (5.7-8.2); eGFR > 60 See Note
[2025-03-25] MEDS: Magnesium Sulfate 4 GM Ivpb 4 GM/50 ML BAG IV (09:29)
[2025-03-25] MEDS: POTASSIUM CHL 10 mEq IVPB 10 MEQ/100 ML BAG 75 MEQ IV ×2 (09:29→11:12)
[2025-03-25] MEDS: ENOXAPARIN SOD INJ 40 MG/0.4 ML SYRINGE SC (09:29)
--- NOTE | 2025-03-25 12:02 | ESPR_ITS ---
Documentation for date of: 03/25/25 Subjective Subjective Interval history: Patient was seen and examined at bedside. No acute events took place overnight. Cocci came back positive. Patient started on fluconazole 400mg bid. Dr Velazco, ID, consulted regarding outpatient mgmt. spoke to dietitianValente, who stated that advancing continuous feeds to goal rate of 70 cc/h would not compound risk of aspiration pneumonia. Exam Vital Signs Temp Pulse Resp BP Pulse Ox O2 Del Method FiO2 97.8 F 100 20 124/78 97 Mechanical Ventilation 35 03/25/25 08:00 03/25/25 10:11 03/25/25 08:00 03/25/25 08:00 03/25/25 10:11 03/25/25 08:00 03/25/25 10:11 Narrative Exam GENERAL APPEARANCE: AOx0 (chronic persistant vegetative state). NAD, activity normal for age, well developed/ well nourished, no cyanosis, pallor, or diaphoresis. Trach'd and PEG'd, cachetic ill appearing and shivering. HEENT: Normocephalic atraumatic, no facial trauma, neck is supple. Lids/conjunctiva normal. Mucous membranes moist, nares normal, lips/teeth normal uvula midline without oral pharyngeal erythema, exudate or swelling TMs normal bilaterally. No lymphangitis/lymphedema. CARDIAC: tachycardic and regular rhythm S1+S2 heard. No murmurs, rubs, or gallops noted RESPIRATORY: Tracheostomy on ventilation support. Inspiratory rhonchi in b/l lung harp, especially closer to midline. Difficult to auscultate due to vegetative state and mechanical ventilation. ABDOMINAL: NBS. Soft, ND/NT. No evidence of fluid wave. No pulsatile masses on exam, rebound tenderness, Keene sign or pain over Mcburney's point. +PEG tube MUSCLES/EXTREMITIES: No abnormal range of motion, no swelling. Muscle wasting. DERM: Warm, pink and dry. No rashes, dermatoses, petechiae or lesions. NEUROLOGICAL: Vegetative state PSYCH: unable to obtain Objective Labs 03/25/25 04:47 03/25/25 04:47 Labs: Laboratory Results - last 24 hr 03/24/25 03/24/25 03/24/25 11:21 11:23 11:47 WBC RBC Hgb Hct MCV MCH MCHC RDW Std Deviation Plt Count Neut % (Auto) Lymph % (Auto) [place] % (Auto) Eos % (Auto) Baso % (Auto) Neut # (Auto) Lymph # (Auto) [place] # (Auto) Eos # (Auto) Baso # (Auto) Immature Gran # (Auto) Absolute Nucleated RBC Immature Gran % Nucleated RBC % Sodium Potassium Chloride Carbon Dioxide Anion Gap BUN Creatinine Estim Creat Clear Calc eGFR BUN/Creatinine Ratio Glucose Calculated Osmolality Lactic Acid Calcium Corrected Calcium Phosphorus Magnesium Total Bilirubin AST ALT Alkaline Phosphatase Total Protein Albumin Globulin Albumin/Globulin Ratio Ur Collection Type Catheter Urine Color Yellow Urine Clarity Clear Urine pH 6.5 Ur Specific [place] 1.010 Urine Protein Negative Urine Glucose (UA) Negative Urine Ketones Negative Urine Blood Negative Urine Nitrite Negative Urine Bilirubin Negative Urine Urobilinogen (Auto) Negative Ur Leukocyte Esterase Negative Urine RBC < 1 Urine WBC < 1 Ur Squamous Epith Cells < 1 Urine Bacteria None Hyaline Casts < 1 Influenza A (Rapid) Negative Influenza B (Rapid) Negative RSV Rapid Negative 03/24/25 03/25/25 14:02 04:47 WBC 6.4 RBC 4.20 L Hgb 11.8 L Hct 35.8 L MCV 85 MCH 28.1 MCHC 33.0 RDW Std Deviation 52.9 H Plt Count 97 L Neut % (Auto) 77 Lymph % (Auto) 14 [place] % (Auto) 8 Eos % (Auto) 1 Baso % (Auto) 0 Neut # (Auto) 4.9 Lymph # (Auto) 0.9 L [place] # (Auto) 0.5 Eos # (Auto) 0.1 Baso # (Auto) 0.0 Immature Gran # (Auto) 0.01 H Absolute Nucleated RBC 0.00 Immature Gran % 0 Nucleated RBC % 0 Sodium 141 Potassium 3.4 D Chloride 107 Carbon Dioxide 21.0 Anion Gap 13 BUN 7 L Creatinine 0.5 L Estim Creat Clear Calc 186.1 eGFR > 60 BUN/Creatinine Ratio 14 Glucose 82 Calculated Osmolality 278 Lactic Acid 0.9 Calcium 9.0 Corrected Calcium 9.4 Phosphorus 4.0 Magnesium 1.3 L Total Bilirubin 2.5 H AST 53 H ALT 25 Alkaline Phosphatase 81 Total Protein 7.4 Albumin 3.5 D Globulin 3.9 H Albumin/Globulin Ratio 0.9 L Ur Collection Type Urine Color Urine Clarity Urine pH Ur Specific [place] Urine Protein Urine Glucose (UA) Urine Ketones Urine Blood Urine Nitrite Urine Bilirubin Urine Urobilinogen (Auto) Ur Leukocyte Esterase Urine RBC Urine WBC Ur Squamous Epith Cells Urine Bacteria Hyaline Casts Influenza A (Rapid) Influenza B (Rapid) RSV Rapid Quality Measures Quality Measures sepsis Current suspected stage: ruled out Possible source: other Blood cultures ordered: yes Antibiotic ordered: Yes Assessment & Plan Assessment Current Active Medications: Generic Name Dose Route Start Last Admin Trade Name Freq PRN Reason Stop Dose Admin Acetaminophen 500 mg 03/24/25 15:53 Acetaminophen Bonnie 325 Mg/10 Ml Udc GT 04/23/25 15:52 Q6H PRN fever >100 or pain Albuterol/Ipratropium 3 ml 03/24/25 16:09 Albuterol/Ipratropium (Duoneb) Rt Bonnie 3 Ml Nebu INH 04/23/25 18:59 Q6HRRT PRN dyspnea Azithromycin 250 mg 03/25/25 16:00 Azithromycin Susp 200 Mg/5 Ml GT 04/01/25 15:59 QDAY@1600 CRISTY Enoxaparin Sodium 40 mg 03/24/25 16:15 03/25/25 09:29 Enoxaparin Sod Inj 40 Mg/0.4 Ml Syringe SC 04/07/25 16:14 40 mg QDAY CRISTY Administration Piperacillin/Tazobactam/Dextrose 3.375 gm in 50 mls @ 12.5 mls/hr 03/24/25 22:00 03/25/25 05:41 Zosyn IV 03/31/25 21:59 12.5 mls/hr Q8HR CRISTY Administration Protocol Magnesium Sulfate 4 gm in 50 mls @ 12.5 mls/hr 03/25/25 08:46 03/25/25 09:29 Magnesium Sulfate Ivpb IV 03/25/25 12:45 12.5 mls/hr X1 ONE Administration Ondansetron HCl 4 mg 03/24/25 15:57 Ondansetron Inj 2 Mg/Ml Inj 2 Ml IVP 04/23/25 15:56 Q8HR PRN NAUSEA OR VOMITING Protocol Plan 34 year old man in persistent vegetative state pMHX alcoholic cirrhotic liver disease/methamphetamine abuse s/p cardiac arrest with prolonged resuscitation resulting in anoxic encephalopathy referred from [facility] due to fever up to 101F. Patient is mechanically ventilated, has a PEG in place, is non-verbal and comatose in a persistently vegetative state. # Possible Ventilator-Associated Pneumonia versus aspiration pneumonia #SIRS 2/4 Clinical picture meets 2/4 SIRS criteria: T 100.4 (>100.9 or <96.8F), RR 24 (>20/min), HR 136 (>90/min), WBC 10.5 (>12 or <4K or Bands >10%). source of infection is in lungs evidenced by CXR enhanced vascular and interstitial markings. LA 4.0 ->0.9 UA was negative. ED gave cefepime IV 1g and vancomycin (pharmacy). Patient came in and found to have 2 or more SIRS criteria and was evaluated for sepsis. However, based upon further work-up, sepsis was ruled out. ? Cocci IgM Ag positive ? Prelim B ctx grew GPC in 04/16 bottles Plan: -ID, Dr Velazco, consulted; appreciate recommendations -started Fluconazole GT 400mg bid -Sputum cx pending -Blood cx pending final speciation -Zosyn 3.375g Q8HR (03/24 - -Azithromycin 500mg (03/24) and 250mg (03/25 -) -DC'ed Vancomycin pharm dosing -DuoNeb Q6h #Hx of vegetative state #Trach'd and Peg'd Plan: -Review subacute order set -Dietitian referral in -Continuous tube feeding at 20cc/h with water flushes @25mL/h; advance to goal of 70cc/h #Thrombocytopenia #Hyperbilirubinemia #Cirrhosis US liver (02/14/2025) showed moderate hepatomegaly, cirrhosis, fatty infiltration with no focal liver lesions. T. bili 2.6, AST 84, Plt 103 -Monitor LFT on AM labs Health Maintenance: Code status: Full DVT prophylaxis: Lovenox SC 40mg Qday GI prophylaxis: Famotidine Diet: Dietitian referral in [place]: yes Lines: PIV Supplemental O2: Mechanical ventilation Disposition: Tele This case was discussed with my attending physician, Dr. Rodríguez, and senior resident, Dr Yu. Even though this this note was carefully revised there may still be minor errors in stone rigger due to voice recognition software. Harshad Causey DO PGY I Attending Provider Attestation/Addendum I reviewed labs, imaging, EKG, home medications and prior available records. Face to face evaluation was performed by me. I have personally examined the patient and discussed assessment and plan with the IM team. I reviewed the resident note and agree with the plan with exceptions as below. Anoxic brain injury secondary to cardiac arrest Status post PEG tube Acute on chronic hypoxic respiratory failure Aspiration pneumonia versus ventilator associated pneumonia Lactic acidosis, resolved Transaminitis Thrombocytopenia Will cover with Zosyn and doxycycline Sent sputum and blood cultures: Blood cultures showed Staphylococcus in 1/2 bottles Started trickle feeds Aspiration precautions Sent cocci IgM Monitor LFTs Monitor CBC
[2025-03-25 13:32] LABS: Cocci Serology, IgM Positive (Negative)
[2025-03-25 13:33] LABS: Cocid Sro, CF/ID (UCD) NO CHG* See Sep Rpt
--- NOTE | 2025-03-25 13:38 | PC.SS ---
STENOGRAPHIC COURT REPORTER conducted phone contact with the patient?s mother, Adilene Montoya to conduct initial assessment and to discuss discharge planning.? STENOGRAPHIC COURT REPORTER utilized loader technician to assist with discussion.? Patient is a resident of Sub-Acute Unit.? Patient has been a resident of [facility] for approximately 1.5 months.? Patient is Trach/PEG.? Patient is bedbound.? Patient?s surrogate medical decision maker is mother, Adilene Montoya.? Sub-Acute PCP is Dr. Pleitez.? Patient?s mother resides in [place] and reports weekly contact with the patient in Sub-Acute.? Discharge plan is for the patient to return to Sub-Acute Unit once medically cleared.? No further discharge needs identified by the patient?s mother.? No further intervention required at this time, social sciences instructor will be available to address any further concerns.? Next of Kin: Adilene Montoya D/C Plan: Sub-Acute
[2025-03-25] MEDS: FLUCONAZOLE SUSP 40 MG/ML ML 400 MG GT ×2 (16:31→21:49)
[2025-03-25] MEDS: AZITHROMYCIN SUSP 200 MG/5 ML 250 MG GT (16:31)
[2025-03-26] VITALS (16 sets, daily range): BP systolic 120–141; BP diastolic 81–97; PULSE 63–107; RESP 17–30; TEMP 36.1–36.8; O2SAT 92–98
[2025-03-26 05:17] LABS: Basophils # (Auto) 0.0 Thou/mm3 (0.0-0.2); Basophils % (Auto) 0 % (0-2.5); Eosinophils # (Auto) 0.0 Thou/mm3 (0.0-0.5); Eosinophils % (Auto) 1 % (0-10); Hematocrit 35.5 % (41.0-53.0); Hemoglobin 11.8 g/dL (13.5-16.0); Immature Granulocytes Auto 0.00 Thou/mm3 (0.00-0.00); Lymphocytes # (Auto) 0.8 Thou/mm3 (1.0-4.8); Lymphocytes % (Auto) 17 % (10-50); Mean Corpuscular HGB Conc 33.2 g/dl (31.0-37.0); Mean Corpuscular Hemoglobin 27.8 pg (25.0-35.0); Mean Corpuscular Volume 84 fL (80-100); Monocytes # (Auto) 0.5 Thou/mm3 (0.0-0.8); Monocytes % (Auto) 11 % (0-12); Neutrophils # (Auto) 3.2 Thou/mm3 (1.8-7.7); Neutrophils % (Auto) 71 % (37-80); Nucleated Red Blood Cell # 0.00 Thou/mm3 (0.00-0.00); Nucleated Red Blood Cell % 0 /100 WBC (0); Platelet Count 101 Thou/mm3 (140-440); RDW Standard Deviation 50.2 fL (35.1-43.9); Red Blood Count 4.24 Miln/mm3 (4.50-5.90); White Blood Count 4.5 Thou/mm3 (3.8-10.6)
[2025-03-26] MEDS: PIPER/TAZO 3.375 GM PREMIX 3.375 GM/50 ML BAG IV ×3 (05:40→21:44)
[2025-03-26 05:44] LABS: Alanine Aminotransferase 29 U/L (10-49); Albumin, Serum 3.5 gm/dL (3.5-5.0); Albumin/Globulin Ratio 0.8 (1.2-2.2); Alkaline Phosphatase 82 U/L (46-116); Anion Gap 12 (7-16); Aspartate Amino Transferase 56 U/L (0-34); BUN/Creatinine Ratio 17 Ratio (12-20); Bilirubin,Total 2.0 mg/dL (0.3-1.2); Blood Urea Nitrogen 10 mg/dL (9-23); Calcium 8.9 mg/dL (8.3-10.6); Calcium (Corrected) 9.3 mg/dL (8.5-10.1); Carbon Dioxide 24.2 mMol/L (20.0-31.0); Chloride 106 mMol/L (98-107); Creatinine (Component) 0.6 mg/dL (0.6-1.3); Estimated Creatinine Clearance 155.1 mL/min (>60); Globulin 4.2 gm/dL (2.3-3.5); Glucose 98 mg/dL (74-106); Magnesium 1.5 mg/dL (1.6-2.6); Osmolality,Calculated 282 (275-295); Phosphorous 3.9 mg/dL (2.4-5.1); Potassium 3.3 mMol/L (3.4-5.1); Sodium 142 mMol/L (136-145); Total Protein 7.7 gm/dL (5.7-8.2); eGFR > 60 See Note
--- NOTE | 2025-03-26 08:04 | PD.HHPROG ---
Documentation for date of: 03/26/25 Subjective - Hospitalist Subjective Interval history: Cocci IgM was positive Potassium was 3.3 and magnesium was 1.5. Electrolytes repleted Blood culture grew gram occlusive cocci. MRSA is pending Remains on ventilator with stable oxygen needs Family at the bedside. They understand the poor prognosis. Sister expressed her wishes of transitioning to comfort care. Family understands that he is ventilator dependent. Discussed with hospice social worker. Exam Vital Signs Temp Pulse Resp BP Pulse Ox O2 Del Method FiO2 97.4 F 104 H 28 H 130/89 H 94 L Mechanical Ventilation 35 03/26/25 04:00 03/26/25 06:09 03/26/25 04:00 03/26/25 06:09 03/26/25 06:09 03/25/25 16:00 03/26/25 06:09 Narrative GENERAL APPEARANCE: AOx0 (chronic persistant vegetative state). NAD, activity normal for age, well developed/ well nourished, no cyanosis, pallor, or diaphoresis. Trach'd and PEG'd, cachetic ill appearing and shivering. HEENT: Normocephalic atraumatic, no facial trauma, neck is supple. Lids/conjunctiva normal. Mucous membranes moist, nares normal, lips/teeth normal uvula midline without oral pharyngeal erythema, exudate or swelling TMs normal bilaterally. No lymphangitis/lymphedema. CARDIAC: tachycardic and regular rhythm S1+S2 heard. No murmurs, rubs, or gallops noted RESPIRATORY: Tracheostomy on ventilation support. Inspiratory rhonchi in b/l lung harp, especially closer to midline. ABDOMINAL: NBS. Soft, ND/NT. No evidence of fluid wave. No pulsatile masses on exam, rebound tenderness, Keene sign or pain over Mcburney's point. +PEG tube MUSCLES/EXTREMITIES: No abnormal range of motion, no swelling. Muscle wasting. DERM: Warm, pink and dry. No rashes, dermatoses, petechiae or lesions. NEUROLOGICAL: Vegetative state PSYCH: unable to obtain Objective - Hospitalist Labs Diagram: 03/26/25 04:44 03/26/25 04:44 Labs: Laboratory Results - last 24 hr 03/25/25 03/26/25 04:47 04:44 WBC 4.5 RBC 4.24 L Hgb 11.8 L Hct 35.5 L MCV 84 MCH 27.8 MCHC 33.2 RDW Std Deviation 50.2 H Plt Count 101 L Neut % (Auto) 71 Lymph % (Auto) 17 [place] % (Auto) 11 Eos % (Auto) 1 Baso % (Auto) 0 Neut # (Auto) 3.2 Lymph # (Auto) 0.8 L [place] # (Auto) 0.5 Eos # (Auto) 0.0 Baso # (Auto) 0.0 Immature Gran # (Auto) 0.00 Absolute Nucleated RBC 0.00 Immature Gran % 0 Nucleated RBC % 0 Sodium 142 Potassium 3.3 L Chloride 106 Carbon Dioxide 24.2 Anion Gap 12 BUN 10 Creatinine 0.6 Estim Creat Clear Calc 155.1 eGFR > 60 BUN/Creatinine Ratio 17 Glucose 98 Calculated Osmolality 282 Calcium 8.9 Corrected Calcium 9.3 Phosphorus 3.9 Magnesium 1.5 L Total Bilirubin 2.0 H D AST 56 H ALT 29 Alkaline Phosphatase 82 Total Protein 7.7 Albumin 3.5 Globulin 4.2 H Albumin/Globulin Ratio 0.8 L Coccidioides IgM Ab Positive A Assessment & Plan Patient Synopsis 34 year old man in persistent vegetative state pMHX alcoholic cirrhotic liver disease/methamphetamine abuse s/p cardiac arrest with prolonged resuscitation resulting in anoxic encephalopathy referred from subacute due to fever up to 101F. Patient is mechanically ventilated, has a PEG in place, is non-verbal and comatose in a persistently vegetative state. # Possible Ventilator-Associated Pneumonia versus aspiration pneumonia #SIRS 2/4 Clinical picture meets 2/4 SIRS criteria: T 100.4 (>100.9 or <96.8F), RR 24 (>20/min), HR 136 (>90/min), WBC 10.5 (>12 or <4K or Bands >10%). source of infection is in lungs evidenced by CXR enhanced vascular and interstitial markings. LA 4.0 ->0.9 UA was negative. ED gave cefepime IV 1g and vancomycin (pharmacy). Patient came in and found to have 2 or more SIRS criteria and was evaluated for sepsis. However, based upon further work-up, sepsis was ruled out. ? Cocci IgM Ag positive ? Prelim B ctx grew GPC in 1/2 bottles Plan: -ID, Dr Velazco, consulted; appreciate recommendations -started Fluconazole GT 400mg bid -Sputum cx pending -Blood cx pending final speciation -Zosyn 3.375g Q8HR (03/24 - -Azithromycin 500mg (03/24) and 250mg (03/25 -) -DC'ed Vancomycin pharm dosing -DuoNeb Q6h #Hx of vegetative state #Trach'd and Peg'd Plan: -Review subacute order set -Dietitian referral in -Continuous tube feeding at 20cc/h with water flushes @25mL/h; advance to goal of 70cc/h #Thrombocytopenia #Hyperbilirubinemia #Cirrhosis US liver (02/14/2025) showed moderate hepatomegaly, cirrhosis, fatty infiltration with no focal liver lesions. T. bili 2.6, AST 84, Plt 103 -Monitor LFT on AM labs #Goals of care discussion/counseling Met with the family in the afternoon of 03/26. Explained the patient's current health condition and the irreversibility of the brain injury. Patient understands that he will always be high risk readmission and further infections. Decision was made to transition to comfort care and patient extubation however family needs some time to gather more members. Discussed the plan with the charge nurse in the ICU and hospice social worker. Family mentioned later in the afternoon that they want about 24 hours before the day decide on the exact timing of compassionate extubation and family gathering. Health Maintenance: Code status: Full DVT prophylaxis: Lovenox SC 40mg Qday GI prophylaxis: Famotidine Diet: Dietitian referral in [place]: yes Lines: PIV Supplemental O2: Mechanical ventilation Disposition: Tele Time Spent with Patient Time: Total time spent is greater than 50% in coordination of care (as documented) at patient's floor/unit and/or counseling patient: Time with patient: 25 - 35 minutes Reason for Continued Stay Reason for continued stay: IV antibiotics and other Quality Measures Quality Measures sepsis Current suspected stage: sepsis Possible source: other Blood cultures ordered: yes Antibiotic ordered: Yes
[2025-03-26] MEDS: FLUCONAZOLE SUSP 40 MG/ML ML 400 MG GT ×2 (09:48→20:33)
[2025-03-26] MEDS: ENOXAPARIN SOD INJ 40 MG/0.4 ML SYRINGE SC (09:48)
[2025-03-26] MEDS: POTASSIUM CHLORIDE 10% 20 MEQ/15 ML UDC 40 MEQ GT (09:48)
[2025-03-26] MEDS: Magnesium Sulfate 2 GM Ivpb 2 GM/50 ML BAG IV (09:49)
[2025-03-26] MEDS: ACETAMINOPHEN SOL 325 MG/10 ML UDC 500 MG GT (11:20)
--- NOTE | 2025-03-26 11:59 | PC.SS ---
Addendum entered by Daria Charles 03/26/25 15:10: F/u: Family meeting/goals of care with patient's sister and mother, attending physician, nurse and SS. Sister wants to withdraw care within 24-48 hours. Sister will update nurse today on which day after she ensures remaining family members can be present. Annia Goldstein, sister, Original Note: follow up note: SS met with patient's sister, Annia and his mother, Adilene. Patient is a resident of [facility] subacute. Patient is a new resident only here a little over a month from [facility]. Patient's mother was initially the decision maker but now wants to change that to her daughter, Annia. Annia is agreeable to this. SS updated patient's floor nurse. Family had concerns regarding his care in our hospital setting. They already discussed this with charge nurse and subacute staff. Patient is on vent/trache/peg. Sister states they have discussed as a family and are wanting comfort measures for patient. They previously discussed this request with subacute and want more information. SS answered family's questions appropriately. SS updated attending physician that family would like to speak with him about comfort measures and the process. Family wants patient comfortable and is aware patient can return to subacute on comfort measures. Attending physician will meet with family today at 2p.m. at bedside. Family also discussed changing code status to DNR. Currently patient is a full code.
[2025-03-26] MEDS: AZITHROMYCIN SUSP 200 MG/5 ML 250 MG GT (16:18)
[2025-03-27] VITALS (13 sets, daily range): BP systolic 112–118; BP diastolic 66–80; PULSE 65–96; RESP 15–20; TEMP 36.4–37; O2SAT 92–98; BMI 23.6
[2025-03-27] MEDS: PIPER/TAZO 3.375 GM PREMIX 3.375 GM/50 ML BAG IV ×3 (05:18→21:23)
[2025-03-27 06:28] LABS: Basophils # (Auto) 0.0 Thou/mm3 (0.0-0.2); Basophils % (Auto) 0 % (0-2.5); Eosinophils # (Auto) 0.1 Thou/mm3 (0.0-0.5); Eosinophils % (Auto) 1 % (0-10); Hematocrit 36.5 % (41.0-53.0); Hemoglobin 12.1 g/dL (13.5-16.0); Immature Granulocytes Auto 0.01 Thou/mm3 (0.00-0.00); Lymphocytes # (Auto) 0.8 Thou/mm3 (1.0-4.8); Lymphocytes % (Auto) 16 % (10-50); Mean Corpuscular HGB Conc 33.2 g/dl (31.0-37.0); Mean Corpuscular Hemoglobin 28.2 pg (25.0-35.0); Mean Corpuscular Volume 85 fL (80-100); Monocytes # (Auto) 0.5 Thou/mm3 (0.0-0.8); Monocytes % (Auto) 10 % (0-12); Neutrophils # (Auto) 3.6 Thou/mm3 (1.8-7.7); Neutrophils % (Auto) 72 % (37-80); Nucleated Red Blood Cell # 0.00 Thou/mm3 (0.00-0.00); Nucleated Red Blood Cell % 0 /100 WBC (0); Platelet Count 112 Thou/mm3 (140-440); RDW Standard Deviation 53.0 fL (35.1-43.9); Red Blood Count 4.29 Miln/mm3 (4.50-5.90); White Blood Count 5.0 Thou/mm3 (3.8-10.6)
[2025-03-27 06:44] LABS: Alanine Aminotransferase 26 U/L (10-49); Albumin, Serum 3.5 gm/dL (3.5-5.0); Albumin/Globulin Ratio 0.9 (1.2-2.2); Alkaline Phosphatase 80 U/L (46-116); Anion Gap 11 (7-16); Aspartate Amino Transferase 42 U/L (0-34); BUN/Creatinine Ratio 20 Ratio (12-20); Bilirubin,Total 1.4 mg/dL (0.3-1.2); Blood Urea Nitrogen 12 mg/dL (9-23); Calcium 9.7 mg/dL (8.3-10.6); Calcium (Corrected) 10.1 mg/dL (8.5-10.1); Carbon Dioxide 27.4 mMol/L (20.0-31.0); Chloride 106 mMol/L (98-107); Creatinine (Component) 0.6 mg/dL (0.6-1.3); Estimated Creatinine Clearance 155.1 mL/min (>60); Globulin 4.1 gm/dL (2.3-3.5); Glucose 96 mg/dL (74-106); Magnesium 1.8 mg/dL (1.6-2.6); Osmolality,Calculated 286 (275-295); Phosphorous 4.5 mg/dL (2.4-5.1); Potassium 3.7 mMol/L (3.4-5.1); Sodium 144 mMol/L (136-145); Total Protein 7.6 gm/dL (5.7-8.2); eGFR > 60 See Note
[2025-03-27] MEDS: ENOXAPARIN SOD INJ 40 MG/0.4 ML SYRINGE SC (09:04)
--- NOTE | 2025-03-27 09:12 | PC.SS ---
ENVIRONMENTAL FIELD OFFICE MANAGER was notified by team B doctors to schedule goals of care meeting with family. ENVIRONMENTAL FIELD OFFICE MANAGER called [facility] and scheduled meeting for 11am, ENVIRONMENTAL FIELD OFFICE MANAGER notified team B doctors and they confirmed meeting time.
[2025-03-27] MEDS: FLUCONAZOLE SUSP 40 MG/ML ML 400 MG GT ×2 (09:47→21:17)
--- NOTE | 2025-03-27 11:20 | PC.SS ---
IN FLIGHT REFUELING MANAGER met with patient?s sisters, Dr. Cuevas, and Team B resident doctors to discuss goals of care at 11:20AM. During meeting patients family discussed concerns for patients care while at the hospital and stated that they had goals of care meeting yesterday and are unsure of why they are having the same meeting from yesterday again. Family stated that they spoke yesterday about comfort care and would like to continue with the plan from yesterday. Family inquired why patient could only have two visitors and requested that they have more visitors so that they can say their goodbyes. Family also requested Setswana stud setter to be present once comfort care measures are started. Patient?s family stated that they feel confused by the process and would like step by step information on what will happen once patient starts receiving comfort care measures. Dr. Cuevas explained comfort care process and requested that IN FLIGHT REFUELING MANAGER send referral for Hospice. IN FLIGHT REFUELING MANAGER inquired if patient will be leaving hospital since patient will be referred to hospice. Per yesterday?s discussion during goals of care meeting patient will remain in the hospital and comfort care will be started Saturday once all of family arrives tomorrow. SS will follow up with contacting chapel to have Setswana present be present once comfort care measures are started.
--- NOTE | 2025-03-27 12:17 | ESPR_ITS ---
<Statement entered by Erich Yu MD - 03/27/25 18:27> I saw and examined patient personally and supervised PGY 1 resident, Dr. Smith with formulating a management plan. I agree with the documentation with the exceptions as listed below. Multiple family meetings were held today with patient's attending physician in attendance. Family will have to make arrangements for a home prior to making a decision to proceed with discontinuation of mechanical ventilation and comfort care. Patient's sister will sign POLST form. At this point patient is DNR, but still on full treatment including IV antibiotics for ventilator associated pneumonia. Plan of care discussed with Attending Dr. Mason Yu MD PGY 2 Disclaimer: This note was dictated by speech recognition. Minor errors in managed care specialist may be present due to voice recognition software. Documentation for date of: 03/27/25 Subjective Subjective Interval history: No acute overnight events. Patient seen and examined at bedside. Appears comfortable, not indistress. VSS. GOC discussion took place at 1100, elaborated below, and decision made for mechanical ventilation to be removed tomorrow afternoon when all family members are present. Family requests graphics editor and hospice, and transfer to a room where they can all be present, and patient transferred to med surg. Another GOC took place with psychologist social and per psychologist social, family would now like to postpone withdrawal of ventilation (original tomorrow afternoon) due to being informed that they need to plan services and find a home. They will let social work know when they find one. Exam Vital Signs Temp Pulse Resp BP Pulse Ox O2 Del Method FiO2 97.9 F 86 17 112/66 92 L Mechanical Ventilation 35 03/27/25 04:00 03/27/25 07:13 03/27/25 04:00 03/27/25 04:00 03/27/25 07:13 03/27/25 04:00 03/27/25 07:13 Narrative Exam GENERAL: AOx0 (chronic vegetative state), no acute distress, eyes open not tracking HEENT: mucous membranes moist, bilateral sclera anicteric CARDIOVASCULAR: regular rate and rhythm, S1/S2 present, no murmurs appreciated PULMONARY: Tracheostomy on ventilation support. bilateral coarse breath sounds ABDOMINAL: soft, non-tender, non-distended, no rebound/guarding, bowel sounds present, PEG EXTREMITIES: no peripheral edema SKIN: warm and dry, intact, no rashes NEURO: vegetative state Objective Labs 03/27/25 05:01 03/27/25 05:01 Labs: Laboratory Results - last 24 hr 03/27/25 05:01 WBC 5.0 RBC 4.29 L Hgb 12.1 L Hct 36.5 L MCV 85 MCH 28.2 MCHC 33.2 RDW Std Deviation 53.0 H Plt Count 112 L Neut % (Auto) 72 Lymph % (Auto) 16 [place] % (Auto) 10 Eos % (Auto) 1 Baso % (Auto) 0 Neut # (Auto) 3.6 Lymph # (Auto) 0.8 L [place] # (Auto) 0.5 Eos # (Auto) 0.1 Baso # (Auto) 0.0 Immature Gran # (Auto) 0.01 H Absolute Nucleated RBC 0.00 Immature Gran % 0 Nucleated RBC % 0 Sodium 144 Potassium 3.7 Chloride 106 Carbon Dioxide 27.4 Anion Gap 11 BUN 12 Creatinine 0.6 Estim Creat Clear Calc 155.1 eGFR > 60 BUN/Creatinine Ratio 20 Glucose 96 Calculated Osmolality 286 Calcium 9.7 Corrected Calcium 10.1 Phosphorus 4.5 Magnesium 1.8 Total Bilirubin 1.4 H D AST 42 H ALT 26 Alkaline Phosphatase 80 Total Protein 7.6 Albumin 3.5 Globulin 4.1 H Albumin/Globulin Ratio 0.9 L Quality Measures Quality Measures sepsis Current suspected stage: ruled out (no evidence end organ damage) Possible source: other Blood cultures ordered: yes Antibiotic ordered: Yes Assessment & Plan Assessment Current Active Medications: Generic Name Dose Route Start Last Admin Trade Name Freq PRN Reason Stop Dose Admin Acetaminophen 500 mg 03/24/25 15:53 03/26/25 11:20 Acetaminophen Bonnie 325 Mg/10 Ml Udc GT 04/23/25 15:52 500 mg Q6H PRN Administration fever >100 or pain Albuterol/Ipratropium 3 ml 03/24/25 16:09 Albuterol/Ipratropium (Duoneb) Rt Bonnie 3 Ml Nebu INH 04/23/25 18:59 Q6HRRT PRN dyspnea Azithromycin 250 mg 03/25/25 16:00 03/26/25 16:18 Azithromycin Susp 200 Mg/5 Ml GT 04/01/25 15:59 250 mg QDAY@1600 CRISTY Administration Enoxaparin Sodium 40 mg 03/24/25 16:15 03/27/25 09:04 Enoxaparin Sod Inj 40 Mg/0.4 Ml Syringe SC 04/07/25 16:14 40 mg QDAY CRISTY Administration Fluconazole 400 mg 03/25/25 16:00 03/27/25 09:47 Fluconazole Susp 40 Mg/Ml Ml GT 04/01/25 15:59 400 mg BID CRISTY Administration Piperacillin/Tazobactam/Dextrose 3.375 gm in 50 mls @ 12.5 mls/hr 03/24/25 22:00 03/27/25 05:18 Zosyn IV 03/31/25 21:59 12.5 mls/hr Q8HR CRISTY Administration Protocol Ondansetron HCl 4 mg 03/24/25 15:57 Ondansetron Inj 2 Mg/Ml Inj 2 Ml IVP 04/23/25 15:56 Q8HR PRN NAUSEA OR VOMITING Protocol Plan 34 year old man in persistent vegetative state pMHX alcoholic cirrhotic liver disease/methamphetamine abuse s/p cardiac arrest with prolonged resuscitation resulting in anoxic encephalopathy referred from subacute due to fever up to 101F. Patient is mechanically ventilated, has a PEG in place, is non-verbal and comatose in a persistently vegetative state. #Goals of care discussion/counseling 03/26: Met with the family in the afternoon. Explained the patient's current health condition and the irreversibility of the brain injury. Patient understands that he will always be high risk readmission and further infections. Decision was made to transition to comfort care and patient extubation however family needs some time to gather more members. Discussed the plan with the charge nurse in the ICU and psychologist social. Family mentioned later in the afternoon that they want about 24 hours before the day decide on the exact timing of compassionate extubation and family gathering. 03/27: GOC discussion done with 4 sisters at [address] Cuevas, psychologist social present and 3 residents present (Dr. Yu, Dr. Smith and Dr. Bills). Family expresses significant frustrations regarding patient's treatment in subacute and current hospitalization treatment, distressed regarding care as patient was consistently found to have chapped bleeding lips, promise of bathing but still dirty, etc. Family questions plan of action of how withdrawing of ventilation will take place and medications required on hand, do not want him to have air hunger. Family reports other family (patient's mother, etc) are still have not yet arrived, but will be here tomorrow. Hospice and graphics editor consulted at family's request. Transfer orders for med-surg in place. Another GOC took place with psychologist social and per psychologist social, family would now like to postpone withdrawal of ventilation due to being informed that they need to plan services and find a home. They will let social work know when they find one. # Possible Ventilator-Associated Pneumonia versus aspiration pneumonia #SIRS 2/4 Clinical picture meets 2/4 SIRS criteria: T 100.4 (>100.9 or <96.8F), RR 24 (>20/min), HR 136 (>90/min), WBC 10.5 (>12 or <4K or Bands >10%). source of infection is in lungs evidenced by CXR enhanced vascular and interstitial markings. LA 4.0 ->0.9 UA was negative. ED gave cefepime IV 1g and vancomycin (pharmacy). Patient came in and found to have 2 or more SIRS criteria and was evaluated for sepsis. However, based upon further work-up, sepsis was ruled out. ? Cocci IgM Ag positive ? Prelim B ctx grew GPC in / bottles Plan: -ID, Dr Velazco, consulted; appreciate recommendations -started Fluconazole GT 400mg bid -Sputum cx pending -Blood cx pending final speciation -Zosyn 3.375g Q8HR (03/24 - -Azithromycin 500mg (03/24) and 250mg (03/25 -) -DC'ed Vancomycin pharm dosing -DuoNeb Q6h #Hx of vegetative state #Trach'd and Peg'd Plan: -Review subacute order set -Dietitian referral in -Continuous tube feeding at 20cc/h with water flushes @25mL/h; advance to goal of 70cc/h #Thrombocytopenia #Hyperbilirubinemia #Cirrhosis US liver (02/14/2025) showed moderate hepatomegaly, cirrhosis, fatty infiltration with no focal liver lesions. T. bili 2.6, AST 84, Plt 103 -Monitor LFT on AM labs Health Maintenance: Code status: DNR DVT prophylaxis: Lovenox SC 40mg Qday GI prophylaxis: Famotidine Diet: Dietitian referral in [place]: yes Lines: PIV Supplemental O2: Mechanical ventilation Disposition: med surg, comfort care tomorrow to remove ventilation Plan of care discussed with attending Dr. Cuevas, and PGY-2 Dr. Yu. Kristan Smith DO PGY-1 Internal Medicine Attending Provider Attestation/Addendum 34-year-old male patient with history of cardiac arrest, anoxic brain injury, substance use, cirrhosis of the liver was admitted for recurrent pneumonia, VAP. The patient is ventilator dependent. Family meeting was held today with psychologist social and house. The patient's sister is Annia [phone] who is the decision-maker. Several of the sisters were also present during the meeting. The family decided on terminal withdrawal from ventilator tomorrow. Hospice evaluation requested. Social service will coordinate with family and graphics editor as well. Plan is to transfer the patient to a non-ICU room.
[2025-03-27] MEDS: ACETAMINOPHEN SOL 325 MG/10 ML UDC 500 MG GT (13:44)
--- NOTE | 2025-03-27 16:31 | PC.SS ---
Knitting Machine Operator (ELLIE) Marsha was notified by ELLIE Day that Dr. Cuevas requested hospice services be explained and offered to the patient?s family. ELLIE met with the patient?s family, which included the following members: aunt Luis, sisters Lizbeth, Mehnaz, Carmen, and Annia, and cousin Sugar. After discussion, the family collectively decided that Annia would be the patient?s medical decision-maker (phone: [phone]). All family members verbally expressed frustration regarding communication with the medical staff. Annia reported that the patient was admitted on 03/24/2025, and, according to her, the patient had been lying in the same dirty, bloody bed sheets for three days. She also expressed concerns about the patient's oral hygiene and ensuring that the patient is properly dressed. Annia mentioned several instances when she visited the patient and found him wearing a gown only to his hip, exposing his genitalia. On 03/27/2025, Annia asked a female ICU nurse to assist with oral care, but the nurse responded, That?s not my patient. Annia described the nurse as rude and disrespectful to the family. Additionally, she raised concerns about medical care at [facility], including the patient being left in soiled briefs and having contracted hair lice. Annia also reported that she and her sisters had a family meeting with Dr. Rodríguez and ELLIE uHff regarding the initiation of comfort care on 03/28/2025. She stated that, had it not been for Barb contacting her about a second family meeting, all family members would have arrived without the medical staff being aware of the plan. Annia expressed frustration with Dr. Cuevas, who was new to the case, as well as with the new residents. She felt that [facility] was not providing adequate care, particularly when simple tasks were not being completed. ELLIE provided active listening, validated the family?s concerns, and apologized for the medical treatment received at [facility], as well as for the unprofessional behavior of the staff. Annia confirmed that she wanted to proceed with comfort care on 03/28/2025, at 1500. ELLIE explained that the Kiln Door Builder, Joellen, would be notified of the medical and professional concerns. A Datix would be completed for an internal investigation. Annia requested the contact information for a state agency where she could file a grievance against the subacute care. ELLIE provided the phone number for the Ombudsman. ELLIE later met with the patient?s family and Dr. Cuevas. Dr. Cuevas explained the medications that would be used in comfort care. Emilie inquired about the timeframe for arranging a home. ELLIE clarified that the hospital would allow 1 to 2 hours to arrange a home after the patient's passing. However, if the family did not have a home lined up, [facility] would be contacted for an on-call home. ELLIE further explained that the [facility] does not permit bodies to be taken out of the [facility], and homes would need to make arrangements for transfer. Emilie requested to continue with selective medical treatment until they could find a home. Family declined comfort care at this time. Dr. Cuevas acknowledge the request. He completed the POLST form, selecting DNR, Selective Treatment, and Long-Term Artificial Nutrition. The POLST was placed in the patient's physical chart. ELLIE updated bedside CHRIS Kent and wreath and garland maker Ashlyn.
[2025-03-27] MEDS: AZITHROMYCIN SUSP 200 MG/5 ML 250 MG GT (17:44)
[2025-03-28] VITALS (13 sets, daily range): BP systolic 115–142; BP diastolic 76–95; PULSE 70–108; RESP 18–23; TEMP 36.1–36.6; O2SAT 91–99; BMI 23.6
[2025-03-28] MEDS: PIPER/TAZO 3.375 GM PREMIX 3.375 GM/50 ML BAG IV ×3 (05:18→21:49)
[2025-03-28 06:56] LABS: Basophils # (Auto) 0.0 Thou/mm3 (0.0-0.2); Basophils % (Auto) 0 % (0-2.5); Eosinophils # (Auto) 0.1 Thou/mm3 (0.0-0.5); Eosinophils % (Auto) 1 % (0-10); Hematocrit 36.0 % (41.0-53.0); Hemoglobin 11.9 g/dL (13.5-16.0); Immature Granulocytes Auto 0.00 Thou/mm3 (0.00-0.00); Lymphocytes # (Auto) 0.8 Thou/mm3 (1.0-4.8); Lymphocytes % (Auto) 21 % (10-50); Mean Corpuscular HGB Conc 33.1 g/dl (31.0-37.0); Mean Corpuscular Hemoglobin 28.3 pg (25.0-35.0); Mean Corpuscular Volume 86 fL (80-100); Monocytes # (Auto) 0.4 Thou/mm3 (0.0-0.8); Monocytes % (Auto) 11 % (0-12); Neutrophils # (Auto) 2.4 Thou/mm3 (1.8-7.7); Neutrophils % (Auto) 67 % (37-80); Nucleated Red Blood Cell # 0.00 Thou/mm3 (0.00-0.00); Nucleated Red Blood Cell % 0 /100 WBC (0); Platelet Count 110 Thou/mm3 (140-440); RDW Standard Deviation 54.3 fL (35.1-43.9); Red Blood Count 4.20 Miln/mm3 (4.50-5.90); White Blood Count 3.6 Thou/mm3 (3.8-10.6)
[2025-03-28 07:15] LABS: Alanine Aminotransferase 25 U/L (10-49); Albumin, Serum 3.6 gm/dL (3.5-5.0); Albumin/Globulin Ratio 0.9 (1.2-2.2); Alkaline Phosphatase 74 U/L (46-116); Anion Gap 11 (7-16); Aspartate Amino Transferase 38 U/L (0-34); BUN/Creatinine Ratio 26 Ratio (12-20); Bilirubin,Total 1.2 mg/dL (0.3-1.2); Blood Urea Nitrogen 13 mg/dL (9-23); Calcium 9.8 mg/dL (8.3-10.6); Calcium (Corrected) 10.1 mg/dL (8.5-10.1); Carbon Dioxide 27.0 mMol/L (20.0-31.0); Chloride 107 mMol/L (98-107); Creatinine (Component) 0.5 mg/dL (0.6-1.3); Estimated Creatinine Clearance 186.1 mL/min (>60); Globulin 4.1 gm/dL (2.3-3.5); Glucose 93 mg/dL (74-106); Magnesium 1.6 mg/dL (1.6-2.6); Osmolality,Calculated 288 (275-295); Phosphorous 4.3 mg/dL (2.4-5.1); Potassium 3.7 mMol/L (3.4-5.1); Sodium 145 mMol/L (136-145); Total Protein 7.7 gm/dL (5.7-8.2); eGFR > 60 See Note
[2025-03-28] MEDS: ENOXAPARIN SOD INJ 40 MG/0.4 ML SYRINGE SC (08:05)
[2025-03-28] MEDS: FLUCONAZOLE SUSP 40 MG/ML ML 400 MG GT ×2 (08:39→20:59)
[2025-03-28] MEDS: ACETAMINOPHEN SOL 325 MG/10 ML UDC 500 MG GT ×2 (11:04→17:38)
--- NOTE | 2025-03-28 14:44 | PC.SS ---
SS was informed by RN, Brianne orr has decided to wait to pursue comfort measures for 1 more week. They wish for pt to transition to a [place] [facility], they do not wish for pt to return to [facility]. Referral was submitted via [facility] pending responses.
[2025-03-28] MEDS: AZITHROMYCIN SUSP 200 MG/5 ML 250 MG GT (15:42)
--- NOTE | 2025-03-28 16:06 | CHAP ---
Patient was visited by he Spiritual Care Volunteer who prayed for them. (Volunteer was in the hospital from 15 :28-16:06)
--- NOTE | 2025-03-28 18:28 | ESPR_ITS ---
Documentation for date of: 03/28/25 Subjective Subjective Interval history: Patient was seen and examined at bedside. No acute events took place overnight. Patient was noted to be in flexion at his joints and collecting his hands and arms in his bossom. Accompanied by family members at bedside who stated that a home has not been arranged for yet.? Patient might first be discharged to a subacute in [place], as family is unsatisfaied with his current subacute facility. VSS WNL CBC and CMP ur Exam Vital Signs Temp Pulse Resp BP Pulse Ox O2 Del Method FiO2 97.9 F 94 23 H 142/90 H 95 Mechanical Ventilation 40 03/28/25 16:00 03/28/25 16:00 03/28/25 16:00 03/28/25 16:00 03/28/25 16:00 03/28/25 16:00 03/28/25 16:00 Narrative Exam GENERAL: AOx0 (chronic vegetative state), no acute distress, eyes open not tracking. Patient was noted to be in flexion at his joints and collecting his hands and arms in his bossom. HEENT: mucous membranes moist, bilateral sclera anicteric CARDIOVASCULAR: regular rate and rhythm, S1/S2 present, no murmurs appreciated PULMONARY: Tracheostomy on ventilation support. bilateral coarse breath sounds ABDOMINAL: soft, non-tender, non-distended, no rebound/guarding, bowel sounds present, PEG EXTREMITIES: no peripheral edema SKIN: warm and dry, intact, no rashes NEURO: vegetative state Objective Labs 03/29/25 04:29 03/29/25 04:29 Labs: Laboratory Results - last 24 hr 03/28/25 06:20 WBC 3.6 L RBC 4.20 L Hgb 11.9 L Hct 36.0 L MCV 86 MCH 28.3 MCHC 33.1 RDW Std Deviation 54.3 H Plt Count 110 L Neut % (Auto) 67 Lymph % (Auto) 21 [place] % (Auto) 11 Eos % (Auto) 1 Baso % (Auto) 0 Neut # (Auto) 2.4 Lymph # (Auto) 0.8 L [place] # (Auto) 0.4 Eos # (Auto) 0.1 Baso # (Auto) 0.0 Immature Gran # (Auto) 0.00 Absolute Nucleated RBC 0.00 Immature Gran % 0 Nucleated RBC % 0 Sodium 145 Potassium 3.7 Chloride 107 Carbon Dioxide 27.0 Anion Gap 11 BUN 13 Creatinine 0.5 L Estim Creat Clear Calc 186.1 eGFR > 60 BUN/Creatinine Ratio 26 H Glucose 93 Calculated Osmolality 288 Calcium 9.8 Corrected Calcium 10.1 Phosphorus 4.3 Magnesium 1.6 Total Bilirubin 1.2 AST 38 H ALT 25 Alkaline Phosphatase 74 Total Protein 7.7 Albumin 3.6 Globulin 4.1 H Albumin/Globulin Ratio 0.9 L Quality Measures Quality Measures sepsis Current suspected stage: ruled out Possible source: other Blood cultures ordered: yes Antibiotic ordered: Yes Assessment & Plan Assessment Current Active Medications: Generic Name Dose Route Start Last Admin Trade Name Freq PRN Reason Stop Dose Admin Acetaminophen 500 mg 03/24/25 15:53 03/28/25 17:38 Acetaminophen Bonnie 325 Mg/10 Ml Udc GT 04/23/25 15:52 500 mg Q6H PRN Administration fever >100 or pain Albuterol/Ipratropium 3 ml 03/24/25 16:09 Albuterol/Ipratropium (Duoneb) Rt Bonnie 3 Ml Nebu INH 04/23/25 18:59 Q6HRRT PRN dyspnea Azithromycin 250 mg 03/25/25 16:00 03/28/25 15:42 Azithromycin Susp 200 Mg/5 Ml GT 04/01/25 15:59 250 mg QDAY@1600 CRITSY Administration Enoxaparin Sodium 40 mg 03/24/25 16:15 03/28/25 08:05 Enoxaparin Sod Inj 40 Mg/0.4 Ml Syringe SC 04/07/25 16:14 40 mg QDAY CRISTY Administration Fluconazole 400 mg 03/25/25 16:00 03/28/25 08:39 Fluconazole Susp 40 Mg/Ml Ml GT 04/01/25 15:59 400 mg BID CRISTY Administration Piperacillin/Tazobactam/Dextrose 3.375 gm in 50 mls @ 12.5 mls/hr 03/24/25 22:00 03/28/25 15:42 Zosyn IV 03/31/25 21:59 12.5 mls/hr Q8HR CRISTY Administration Protocol Ondansetron HCl 4 mg 03/24/25 15:57 Ondansetron Inj 2 Mg/Ml Inj 2 Ml IVP 04/23/25 15:56 Q8HR PRN NAUSEA OR VOMITING Protocol Plan 34 year old man in persistent vegetative state pMHX alcoholic cirrhotic liver disease/methamphetamine abuse s/p cardiac arrest with prolonged resuscitation resulting in anoxic encephalopathy referred from subacute due to fever up to 101F. Patient is mechanically ventilated, has a PEG in place, is non-verbal and comatose in a persistently vegetative state. ? Interval Hx: Patient was noted to be in flexion at his joints and collecting his hands and arms in his bossom. Accompanied by family members at bedside who stated that a home has not been arranged for yet.? Patient might first be discharged to a subacute in [place], as family is unsatisfaied with his current subacute facility. ? ? #Goals of care discussion/counseling 03/26: Met with the family in the afternoon. Explained the patient's current health condition and the irreversibility of the brain injury. Patient understands that he will always be high risk readmission and further infections. Decision was made to transition to comfort care and patient extubation however family needs some time to gather more members. Discussed the plan with the charge nurse in the ICU and social services technician. Family mentioned later in the afternoon that they want about 24 hours before the day decide on the exact timing of compassionate extubation and family gathering. ? 03/27: GOC discussion done with 4 sisters at [address] Cuevas, social services technician present and 3 residents present (Dr. Yu, Dr. Smith and Dr. Bills). Family expresses significant frustrations regarding patient's treatment in subacute and current hospitalization treatment, distressed regarding care as patient was consistently found to have chapped bleeding lips, promise of bathing but still dirty, etc. Family questions plan of action of how withdrawing of ventilation will take place and medications required on hand, do not want him to have air hunger. Family reports other family (patient's mother, etc) are still have not yet arrived, but will be here tomorrow. Hospice and floor worker transfer bay consulted at family's request. Transfer orders for med-surg in place. Another GOC took place with social services technician and per social services technician, family would now like to postpone withdrawal of ventilation due to being informed that they need to plan services and find a home. They will let social work know when they find one. ? # Possible Ventilator-Associated Pneumonia versus aspiration pneumonia #SIRS 2/4 Clinical picture meets 2/4 SIRS criteria: T 100.4 (>100.9 or <96.8F), RR 24 (>20/min), HR 136 (>90/min), WBC 10.5 (>12 or <4K or Bands >10%). source of infection is in lungs evidenced by CXR enhanced vascular and interstitial markings. LA 4.0 ->0.9 UA was negative. ED gave cefepime IV 1g and vancomycin (pharmacy). Patient came in and found to have 2 or more SIRS criteria and was evaluated for sepsis. However, based upon further work-up, sepsis was ruled out. ? Cocci IgM Ag positive ? 03/28 B ctx grew Staph haemolyticus in 1/2 bottles. MRSA (-) ? Plan: -ID, Dr Velazco, consulted; appreciate recommendations -started Fluconazole GT 400mg bid -Sputum cx pending -Zosyn 3.375g Q8HR (03/24 - -Azithromycin 500mg (03/24) and 250mg (03/25 -) -DC'ed Vancomycin pharm dosing -DuoNeb Q6h ? ? #Hx of vegetative state #Trach'd and Peg'd Plan: -Review subacute order set -Dietitian referral in -Continuous tube feeding at 20cc/h with water flushes @25mL/h; advance to goal of 70cc/h ? #Thrombocytopenia #Hyperbilirubinemia #Cirrhosis US liver (02/14/2025) showed moderate hepatomegaly, cirrhosis, fatty infiltration with no focal liver lesions. T. bili 2.6, AST 84, Plt 103 ? -Monitor LFT on AM labs ? ? Health Maintenance: Code status: DNR DVT prophylaxis: Lovenox SC 40mg Qday GI prophylaxis: Famotidine Diet: Dietitian referral in [place]: yes Lines: PIV Supplemental O2: Mechanical ventilation Disposition: med surg, comfort care tomorrow to remove ventilation This case was discussed with my attending physician, Dr. Cuevas, and senior resident, Dr Rodriguez. Even though this this note was carefully revised there may still be minor errors in yardage caller due to voice recognition software. Harshad Causey, DO PGY I Senior Resident Attestation: I discussed with and supervised the bakery pastry internship physician involved in the care of this patient. I personally saw and examined the patient and discussed the assessment and plan with the entire medicine team, including my attending. I agree with the assessment and plan as documented above. Jimi Rodriguez MD PGY3 Internal Medicine Attending Provider Attestation/Addendum 34-year-old male patient who is vent dependent history of anoxic brain injury. The patient is here for pneumonia. He is probably subacute. He is on Diflucan for coccidioidomycosis. Monitor LFTs. Family wants him to be discharged to a facility in [place] and he is stable.
[2025-03-29] VITALS (15 sets, daily range): BP systolic 123–152; BP diastolic 81–114; PULSE 74–135; RESP 16–32; TEMP 36–36.6; O2SAT 92–99; BMI 23.6
[2025-03-29] MEDS: ACETAMINOPHEN SOL 325 MG/10 ML UDC 500 MG GT (00:57)
[2025-03-29] MEDS: ALBUTEROL/IPRATROPIUM (Duoneb) RT SOL 3 ML NEBU INH (01:52)
--- NOTE | 2025-03-29 02:17 | XR_ITS ---
EXAMINATION: AP chest single view TECHNIQUE: AP portable semiupright chest single view Date and time: March 29, 2025, 0241 hours, comparison March 24, 2025 INDICATIONS: Difficulty breathing today. FINDINGS: The patient's hands are over the chest Normal heart size Tracheostomy tube tip 3.4 cm above harmony Gastrostomy tube Severe osteopenia IMPRESSION: No gross infiltrates
[2025-03-29] MEDS: MORPHINE SULF INJ 4 MG/ML VIAL 1 MG IVP ×2 (02:25→09:31)
[2025-03-29] MEDS: PIPER/TAZO 3.375 GM PREMIX 3.375 GM/50 ML BAG IV (05:29)
[2025-03-29 06:40] LABS: Basophils # (Auto) 0.0 Thou/mm3 (0.0-0.2); Basophils % (Auto) 0 % (0-2.5); Eosinophils # (Auto) 0.1 Thou/mm3 (0.0-0.5); Eosinophils % (Auto) 1 % (0-10); Hematocrit 39.9 % (41.0-53.0); Hemoglobin 12.8 g/dL (13.5-16.0); Immature Granulocytes Auto 0.02 Thou/mm3 (0.00-0.00); Lymphocytes # (Auto) 1.0 Thou/mm3 (1.0-4.8); Lymphocytes % (Auto) 14 % (10-50); Mean Corpuscular HGB Conc 32.1 g/dl (31.0-37.0); Mean Corpuscular Hemoglobin 27.7 pg (25.0-35.0); Mean Corpuscular Volume 86 fL (80-100); Monocytes # (Auto) 0.5 Thou/mm3 (0.0-0.8); Monocytes % (Auto) 7 % (0-12); Neutrophils # (Auto) 5.5 Thou/mm3 (1.8-7.7); Neutrophils % (Auto) 78 % (37-80); Nucleated Red Blood Cell # 0.00 Thou/mm3 (0.00-0.00); Nucleated Red Blood Cell % 0 /100 WBC (0); Platelet Count 113 Thou/mm3 (140-440); RDW Standard Deviation 53.3 fL (35.1-43.9); Red Blood Count 4.62 Miln/mm3 (4.50-5.90); White Blood Count 7.1 Thou/mm3 (3.8-10.6)
[2025-03-29 07:24] LABS: Alanine Aminotransferase 28 U/L (10-49); Albumin, Serum 4.0 gm/dL (3.5-5.0); Albumin/Globulin Ratio 0.9 (1.2-2.2); Alkaline Phosphatase 85 U/L (46-116); Anion Gap 12 (7-16); Aspartate Amino Transferase 46 U/L (0-34); BUN/Creatinine Ratio 18 Ratio (12-20); Bilirubin,Total 1.5 mg/dL (0.3-1.2); Blood Urea Nitrogen 11 mg/dL (9-23); Calcium 9.7 mg/dL (8.3-10.6); Calcium (Corrected) 9.7 mg/dL (8.5-10.1); Carbon Dioxide 26.3 mMol/L (20.0-31.0); Chloride 106 mMol/L (98-107); Creatinine (Component) 0.6 mg/dL (0.6-1.3); Estimated Creatinine Clearance 155.1 mL/min (>60); Globulin 4.5 gm/dL (2.3-3.5); Glucose 98 mg/dL (74-106); Magnesium 1.3 mg/dL (1.6-2.6); Osmolality,Calculated 286 (275-295); Phosphorous 3.4 mg/dL (2.4-5.1); Potassium 3.8 mMol/L (3.4-5.1); Sodium 144 mMol/L (136-145); Total Protein 8.5 gm/dL (5.7-8.2); eGFR > 60 See Note
--- NOTE | 2025-03-29 09:12 | PD.IDPROG ---
Subjective Subjective Interval history: dnr pt with pos sputum but neg cxr. no fever either. pos cocci locally, test pending at [facility] Exam Vital Signs Temp Pulse Resp BP Pulse Ox O2 Del Method FiO2 96.9 F 135 H 24 H 149/114 H 94 L Mechanical Ventilation 50 03/29/25 08:00 03/29/25 08:00 03/29/25 08:00 03/29/25 08:00 03/29/25 08:00 03/29/25 08:00 03/29/25 06:49 Narrative Exam not interactive on 50% but cxr neg Objective - Internal Medicine Labs 03/29/25 04:29 03/29/25 04:29 Labs: Laboratory Results - last 24 hr 03/29/25 04:29 WBC 7.1 D RBC 4.62 Hgb 12.8 L Hct 39.9 L MCV 86 MCH 27.7 MCHC 32.1 RDW Std Deviation 53.3 H Plt Count 113 L Neut % (Auto) 78 Lymph % (Auto) 14 [place] % (Auto) 7 Eos % (Auto) 1 Baso % (Auto) 0 Neut # (Auto) 5.5 Lymph # (Auto) 1.0 [place] # (Auto) 0.5 Eos # (Auto) 0.1 Baso # (Auto) 0.0 Immature Gran # (Auto) 0.02 H Absolute Nucleated RBC 0.00 Immature Gran % 0 Nucleated RBC % 0 Sodium 144 Potassium 3.8 Chloride 106 Carbon Dioxide 26.3 Anion Gap 12 BUN 11 Creatinine 0.6 Estim Creat Clear Calc 155.1 eGFR > 60 BUN/Creatinine Ratio 18 Glucose 98 Calculated Osmolality 286 Calcium 9.7 Corrected Calcium 9.7 Phosphorus 3.4 Magnesium 1.3 L Total Bilirubin 1.5 H AST 46 H ALT 28 Alkaline Phosphatase 85 Total Protein 8.5 H Albumin 4.0 Globulin 4.5 H Albumin/Globulin Ratio 0.9 L Assessment & Plan A&P Narrative cocci vs false pos cocci dnr status will narrow rx to semi empiric flucon, ok to stop it if test at [facility] neg. stopped zosyn as that seems superfluous at this point in time admittted with hs of fever but no fever noted since admit. and cxr neg . finished azithro too, so stopped that as well. acquisition of cocci is unlikely in a nh unless pt goes outside. Time Spent With Patient Time: Total time spent is greater than 50% in coordination of care (as documented) at patient's floor/unit and/or counseling patient:
[2025-03-29] MEDS: Magnesium Sulfate 4 GM Ivpb 4 GM/50 ML BAG IV (09:32)
[2025-03-29] MEDS: FLUCONAZOLE SUSP 40 MG/ML ML 400 MG GT ×2 (09:32→21:39)
[2025-03-29] MEDS: ENOXAPARIN SOD INJ 40 MG/0.4 ML SYRINGE SC (09:33)
--- NOTE | 2025-03-29 09:57 | CHAP ---
Patient expressed gratitude for visit and prayer.
--- NOTE | 2025-03-29 10:22 | ESCONSULT_ITS ---
RE: CHAVEZ POND : 1990 DATE OF CONSULTATION: 03/29/2025 REFERRING PHYSICIAN: Mario Rodríguez MD REASON FOR CONSULTATION: [place] fever test positive on . HISTORY OF PRESENT ILLNESS: Patient is a 34-year-old with anoxic brain injury in 12/2024 or 01/2025. The details are lacking as the record is a bit thin. He has been seen by Dr. Pleitez intermittently, subacute. He had a trach and PEG before. History is limited. Patient cannot answer questions. ALLERGIES: RECORDED. FAMILY HISTORY: Similarly limited. SOCIAL HISTORY: Similarly limited. IMMUNIZATIONS: Vaccines are limited. The patient was seen in the emergency room and admitted to the hospital, most likely in 02/2025 His hx includes cirrhosis, methamphetamine use, and cardiac arrest with a fever. His chest x-ray is negative at this time. Not quite sure why sputums were obtained but they were, probably because they are easy to get. He has a trach and a PEG and a [place] catheter. He is unable to interact. His examination is otherwise benign. I am fairly unimpressed with his resp status on the ventilator. His chest x-ray is negative. Oxygenation does not usually cause any improvement in the x-ray picture and in fact tends to cause more fibrosis than anything. I will check on him Saturday if he remains, but he may be transferred to another senior living at the discretion of the family. I have no objection to that. He can continue on fluconazole for now. He has finished a course of Zithromax. He is on a lower dose of 250 a day, which he has already had for about 4 days, so we will finish that up today and same for the Zosyn. Zosyn is probably finished as well. I will check on him if he remains, but he may be transferred to another facility at the family discretion. DT: 09:51:46 TT: 10:21:00 Ref: [id number] - TID: [id number] MTDD
--- NOTE | 2025-03-29 10:30 | PC.SS ---
Follow up note: SS phoned patient's sister, Annia, for update on family wishes. Annia explained all events over weekend. Sister states she did her own research and found they can send patient's body to [facility]. Sister states she will find a preferred home in [place] and contact me with information. If all arrangements have been made, then they will choose to withdraw care. SS contacted [facility] and they reiterated that the typical process would be to contact home in [facility] and ask for the removal team and have them make arrangements to [facility] body at our hospital. No mention of cost for service. SS will wait for sister to contact me with further information.
[2025-03-29] MEDS: guaiFENesin SYRUP 200 MG/10 ML UDC 100 MG GT ×2 (13:06→21:38)
--- NOTE | 2025-03-29 15:05 | ESPR_ITS ---
Documentation for date of: 03/29/25 Subjective Subjective Interval history: Patient was seen and examined at bedside. No acute events took place overnight. Family pointed out that patient is in worse contractures about his joints currently. HR acutely elevated, likely due to pain, gave morphine 1mg x1 (another had been given at midnight). BP 138/87, HR 130-140 +1BM, WBC 7.1/3.6, Mg 1.3 (4g), CXR (03/29) No gross infiltrates [increased interstitial markings Lt lung especially] Exam Vital Signs Temp Pulse Resp BP Pulse Ox O2 Del Method FiO2 96.8 F 90 21 H 136/98 H 92 L Mechanical Ventilation 50 03/29/25 12:00 03/29/25 12:27 03/29/25 12:00 03/29/25 12:00 03/29/25 12:27 03/29/25 12:00 03/29/25 12:27 Narrative Exam GENERAL: AOx0 (chronic vegetative state), no acute distress, eyes open not tracking. Patient was noted to be in flexion at his joints and collecting his hands and arms in his bossom. HEENT: mucous membranes moist, bilateral sclera anicteric CARDIOVASCULAR: regular rate and rhythm, S1/S2 present, no murmurs appreciated PULMONARY: Tracheostomy on ventilation support. bilateral coarse breath sounds ABDOMINAL: soft, non-tender, non-distended, no rebound/guarding, bowel sounds present, PEG EXTREMITIES: no peripheral edema SKIN: warm and dry, intact, no rashes NEURO: vegetative state Objective Labs 04/03/25 04:40 04/03/25 04:40 Labs: Laboratory Results - last 24 hr 03/29/25 04:29 WBC 7.1 D RBC 4.62 Hgb 12.8 L Hct 39.9 L MCV 86 MCH 27.7 MCHC 32.1 RDW Std Deviation 53.3 H Plt Count 113 L Neut % (Auto) 78 Lymph % (Auto) 14 [place] % (Auto) 7 Eos % (Auto) 1 Baso % (Auto) 0 Neut # (Auto) 5.5 Lymph # (Auto) 1.0 [place] # (Auto) 0.5 Eos # (Auto) 0.1 Baso # (Auto) 0.0 Immature Gran # (Auto) 0.02 H Absolute Nucleated RBC 0.00 Immature Gran % 0 Nucleated RBC % 0 Sodium 144 Potassium 3.8 Chloride 106 Carbon Dioxide 26.3 Anion Gap 12 BUN 11 Creatinine 0.6 Estim Creat Clear Calc 155.1 eGFR > 60 BUN/Creatinine Ratio 18 Glucose 98 Calculated Osmolality 286 Calcium 9.7 Corrected Calcium 9.7 Phosphorus 3.4 Magnesium 1.3 L Total Bilirubin 1.5 H AST 46 H ALT 28 Alkaline Phosphatase 85 Total Protein 8.5 H Albumin 4.0 Globulin 4.5 H Albumin/Globulin Ratio 0.9 L Quality Measures Quality Measures sepsis Current suspected stage: ruled out Possible source: other Blood cultures ordered: yes Antibiotic ordered: Yes Assessment & Plan Assessment Current Active Medications: Generic Name Dose Route Start Last Admin Trade Name Freq PRN Reason Stop Dose Admin Acetaminophen 500 mg 03/24/25 15:53 03/29/25 00:57 Acetaminophen Bonnie 325 Mg/10 Ml Udc GT 04/23/25 15:52 500 mg Q6H PRN Administration fever >100 or pain Albuterol/Ipratropium 3 ml 03/24/25 16:09 03/29/25 01:52 Albuterol/Ipratropium (Duoneb) Rt Bonnie 3 Ml Nebu INH 04/23/25 18:59 3 ml Q6HRRT PRN Administration dyspnea Enoxaparin Sodium 40 mg 03/24/25 16:15 03/29/25 09:33 Enoxaparin Sod Inj 40 Mg/0.4 Ml Syringe SC 04/07/25 16:14 40 mg QDAY CRISTY Administration Fluconazole 400 mg 03/25/25 16:00 03/29/25 09:32 Fluconazole Susp 40 Mg/Ml Ml GT 04/01/25 15:59 400 mg BID CRISTY Administration Guaifenesin 100 mg 03/29/25 14:00 03/29/25 13:06 Guaifenesin Syrup 200 Mg/10 Ml Udc GT 04/28/25 13:59 100 mg TID CRISTY Administration Protocol Ondansetron HCl 4 mg 03/24/25 15:57 Ondansetron Inj 2 Mg/Ml Inj 2 Ml IVP 04/23/25 15:56 Q8HR PRN NAUSEA OR VOMITING Protocol Plan 34 year old man in persistent vegetative state pMHX alcoholic cirrhotic liver disease/methamphetamine abuse s/p cardiac arrest with prolonged resuscitation resulting in anoxic encephalopathy referred from [facility] due to fever up to 101F. Patient is mechanically ventilated, has a PEG in place, is non-verbal and comatose in a persistently vegetative state. ? #Goals of care discussion/counseling 03/26: Met with the family in the afternoon. Explained the patient's current health condition and the irreversibility of the brain injury. Patient understands that he will always be high risk readmission and further infections. Decision was made to transition to comfort care and patient extubation however family needs some time to gather more members. Discussed the plan with the charge nurse in the ICU and mental health social worker. Family mentioned later in the afternoon that they want about 24 hours before the day decide on the exact timing of compassionate extubation and family gathering. ? 03/27: GOC discussion done with 4 sisters at [address] Cuevas, mental health social worker present and 3 residents present (Dr. Yu, Dr. Smith and Dr. Bills). Family expresses significant frustrations regarding patient's treatment in subacute and current hospitalization treatment, distressed regarding care as patient was consistently found to have chapped bleeding lips, promise of bathing but still dirty, etc. Family questions plan of action of how withdrawing of ventilation will take place and medications required on hand, do not want him to have air hunger. Family reports other family (patient's mother, etc) are still have not yet arrived, but will be here tomorrow. Hospice and plasma processing centrifuge operator consulted at family's request. Transfer orders for med-surg in place. Another GOC took place with mental health social worker and per mental health social worker, family would now like to postpone withdrawal of ventilation due to being informed that they need to plan services and find a home. They will let social work know when they find one. ? # Possible Ventilator-Associated Pneumonia versus aspiration pneumonia #SIRS 2/4 Clinical picture meets 2/4 SIRS criteria: T 100.4 (>100.9 or <96.8F), RR 24 (>20/min), HR 136 (>90/min), WBC 10.5 (>12 or <4K or Bands >10%). source of infection is in lungs evidenced by CXR enhanced vascular and interstitial markings. LA 4.0 ->0.9 UA was negative. ED gave cefepime IV 1g and vancomycin (pharmacy). Patient came in and found to have 2 or more SIRS criteria and was evaluated for sepsis. However, based upon further work-up, sepsis was ruled out. ? Cocci IgM Ag positive ? B ctx grew Staph haemolyticus in 1/2 bottles. MRSA (-) 03/29 Superimposed bacterial infection is unlikely or must have been treated for by 5 days of azithromycin and Zosyn as CXR is neagtive. Consider possibility of false negative cocci as this infection is unlikely at a correction ? Plan: -ID, Dr Velazco, consulted; appreciate recommendations -Guaifenesin GT 100mg TID -started Fluconazole GT 400mg bid (03/25 -) -Sputum cx pending -Zosyn 3.375g Q8HR (03/24 -) -Azithromycin 500mg (03/24) and 250mg (03/25) -DC'ed Vancomycin pharm dosing -DuoNeb Q6h ? ? #Hx of vegetative state #Trach'd and Peg'd Plan: -Review subacute order set -Dietitian referral in -Continuous tube feeding at 20cc/h with water flushes @25mL/h; advance to goal of 70cc/h ? #Thrombocytopenia #Hyperbilirubinemia #Cirrhosis US liver (02/14/2025) showed moderate hepatomegaly, cirrhosis, fatty infiltration with no focal liver lesions. T. bili 2.6, AST 84, Plt 103 ? -Monitor LFT on AM labs ? ? Health Maintenance: Code status: DNR DVT prophylaxis: Lovenox SC 40mg Qday GI prophylaxis: Famotidine Diet: Dietitian referral in [place]: yes Lines: PIV Supplemental O2: Mechanical ventilation Disposition: med surg, comfort care tomorrow to remove ventilation ? This case was discussed with my attending physician, Dr. Cuevas, and senior resident, Dr Rodriguez. Even though this this note was carefully revised there may still be minor errors in merry go round attendant due to voice recognition software. Harshad Causey, DO PGY I Senior Resident Attestation: The patient's magnesium was repleted, and patient family is still pending the regiment before pulling out the life support. I discussed with and supervised the internship physician involved in the care of this patient. I personally saw and examined the patient and discussed the assessment and plan with the entire medicine team, including my attending. I agree with the assessment and plan as documented above. Jimi Rodriguez MD PGY3 Internal Medicine Attending Provider Attestation/Addendum 4-year-old male patient who is vent dependent history of anoxic brain injury. The patient is here for pneumonia. batch or continuous still operator trying to find subacute located in [place]. He is on Diflucan for coccidioidomycosis. Monitor LFTs. Family concerned about his care and mentioned he has contractures. Family wants him to be discharged to adifferent facility in [place] when he is stable. He was given pain medications. Discussed with housestaff.
--- NOTE | 2025-03-29 15:19 | PC.SS ---
Addendum entered by Daria Charles 03/29/25 15:51: SS verified with a [facility] that their process is is if family chooses them, they will make arrangements and pick the body up and bring back to their home. Original Note: Follow up note: SS spoke to sister, Annia, to verify if they found a [facility]. They still are discussing which one. SS will follow up in the morning.
[2025-03-30] VITALS (12 sets, daily range): BP systolic 110–151; BP diastolic 66–92; PULSE 82–114; RESP 16–28; TEMP 35.9–38.9; O2SAT 90–97
[2025-03-30 06:21] LABS: Basophils # (Auto) 0.0 Thou/mm3 (0.0-0.2); Basophils % (Auto) 0 % (0-2.5); Eosinophils # (Auto) 0.1 Thou/mm3 (0.0-0.5); Eosinophils % (Auto) 1 % (0-10); Hematocrit 39.4 % (41.0-53.0); Hemoglobin 12.9 g/dL (13.5-16.0); Immature Granulocytes Auto 0.03 Thou/mm3 (0.00-0.00); Lymphocytes # (Auto) 0.9 Thou/mm3 (1.0-4.8); Lymphocytes % (Auto) 13 % (10-50); Mean Corpuscular HGB Conc 32.7 g/dl (31.0-37.0); Mean Corpuscular Hemoglobin 28.2 pg (25.0-35.0); Mean Corpuscular Volume 86 fL (80-100); Monocytes # (Auto) 0.4 Thou/mm3 (0.0-0.8); Monocytes % (Auto) 6 % (0-12); Neutrophils # (Auto) 5.2 Thou/mm3 (1.8-7.7); Neutrophils % (Auto) 79 % (37-80); Nucleated Red Blood Cell # 0.00 Thou/mm3 (0.00-0.00); Nucleated Red Blood Cell % 0 /100 WBC (0); Platelet Count 114 Thou/mm3 (140-440); RDW Standard Deviation 53.9 fL (35.1-43.9); Red Blood Count 4.57 Miln/mm3 (4.50-5.90); White Blood Count 6.6 Thou/mm3 (3.8-10.6)
[2025-03-30] MEDS: guaiFENesin SYRUP 200 MG/10 ML UDC 100 MG GT ×2 (06:21→18:46)
[2025-03-30 06:55] LABS: Alanine Aminotransferase 26 U/L (10-49); Albumin, Serum 3.7 gm/dL (3.5-5.0); Albumin/Globulin Ratio 0.8 (1.2-2.2); Alkaline Phosphatase 81 U/L (46-116); Anion Gap 10 (7-16); Aspartate Amino Transferase 49 U/L (0-34); BUN/Creatinine Ratio 24 Ratio (12-20); Bilirubin,Total 2.1 mg/dL (0.3-1.2); Blood Urea Nitrogen 12 mg/dL (9-23); Calcium 9.7 mg/dL (8.3-10.6); Calcium (Corrected) 9.9 mg/dL (8.5-10.1); Carbon Dioxide 27.7 mMol/L (20.0-31.0); Chloride 104 mMol/L (98-107); Creatinine (Component) 0.5 mg/dL (0.6-1.3); Estimated Creatinine Clearance 186.1 mL/min (>60); Globulin 4.6 gm/dL (2.3-3.5); Glucose 116 mg/dL (74-106); Magnesium 1.5 mg/dL (1.6-2.6); Osmolality,Calculated 283 (275-295); Phosphorous 3.2 mg/dL (2.4-5.1); Potassium 3.8 mMol/L (3.4-5.1); Sodium 142 mMol/L (136-145); Total Protein 8.3 gm/dL (5.7-8.2); eGFR > 60 See Note
[2025-03-30] MEDS: ENOXAPARIN SOD INJ 40 MG/0.4 ML SYRINGE SC (08:08)
[2025-03-30] MEDS: ACETAMINOPHEN SOL 325 MG/10 ML UDC 500 MG GT ×2 (08:11→19:15)
[2025-03-30] MEDS: FLUCONAZOLE SUSP 40 MG/ML ML 400 MG GT ×2 (09:55→21:47)
--- NOTE | 2025-03-30 11:46 | PC.CC ---
PASRR Level 1 complete and downloaded; Level 2 not required.
--- NOTE | 2025-03-30 11:56 | PC.SS ---
SS was informed by Daria SCHAFER patient's sister is agreeable for pt to return to [facility] with DNR. GILMAR has spoken to Beata from [facility] who explained to verify if it is returning with comfort care or DNR and have physicians speak with Dr. Pleitez. SS has informed resident physicians and they will follow up with patient's sister and Dr. Pleitez.
--- NOTE | 2025-03-30 16:26 | PD.RESPRO ---
Documentation for date of: 03/30/25 Subjective Subjective Interval history: Patient was seen and examined at bedside. No acute events took place overnight. Patient primary decision-maker is his mother, who has given verbal affirmation for her daughter, patient's sister, to make the decisions with regard to patient's care. Spoke to sister Ms. Annia Goldstein this morning who shared her disappointment patient's previous subacute. She voiced concerns over her broader being neglected. The family is unwilling to have the patient be discharged back to the previous subacute, and will only have him at the [facility], which at this time cannot accept the patient. Family also declined primary team's offer to seek subacute facilities further to the north and [place] of [place]. At this time they are still making arrangements for home, which has not been set up just yet. CXR (03/29) No gross infiltrates [increased interstitial markings Lt lung especially] BP 120/89, HR 112, satting 96% on mech vent WBC 6.6, Mg 1.5 (+MgO 400mg GT), T. bili 2.1 Sputum culture growing Pseudomonas sen Zosyn and Proteus mirabilis Exam Vital Signs Temp Pulse Resp BP Pulse Ox O2 Del Method FiO2 96.6 F L 89 23 H 110/66 96 Mechanical Ventilation 50 03/30/25 12:00 03/30/25 12:00 03/30/25 12:00 03/30/25 12:00 03/30/25 12:00 03/30/25 12:00 03/30/25 07:43 Narrative Exam GENERAL: AOx0 (chronic vegetative state), no acute distress, eyes open not tracking. Patient was noted to be in flexion at his joints and collecting his hands and arms in his bossom. HEENT: mucous membranes moist, bilateral sclera anicteric CARDIOVASCULAR: regular rate and rhythm, S1/S2 present, no murmurs appreciated PULMONARY: Tracheostomy on ventilation support. bilateral coarse breath sounds ABDOMINAL: soft, non-tender, non-distended, no rebound/guarding, bowel sounds present, PEG EXTREMITIES: no peripheral edema SKIN: warm and dry, intact, no rashes NEURO: vegetative state Objective Labs 03/30/25 05:23 03/30/25 05:23 Labs: Laboratory Results - last 24 hr 03/30/25 05:23 WBC 6.6 RBC 4.57 Hgb 12.9 L Hct 39.4 L MCV 86 MCH 28.2 MCHC 32.7 RDW Std Deviation 53.9 H Plt Count 114 L Neut % (Auto) 79 Lymph % (Auto) 13 [place] % (Auto) 6 Eos % (Auto) 1 Baso % (Auto) 0 Neut # (Auto) 5.2 Lymph # (Auto) 0.9 L [place] # (Auto) 0.4 Eos # (Auto) 0.1 Baso # (Auto) 0.0 Immature Gran # (Auto) 0.03 H Absolute Nucleated RBC 0.00 Immature Gran % 1 H Nucleated RBC % 0 Sodium 142 Potassium 3.8 Chloride 104 Carbon Dioxide 27.7 Anion Gap 10 BUN 12 Creatinine 0.5 L Estim Creat Clear Calc 186.1 eGFR > 60 BUN/Creatinine Ratio 24 H Glucose 116 H Calculated Osmolality 283 Calcium 9.7 Corrected Calcium 9.9 Phosphorus 3.2 Magnesium 1.5 L Total Bilirubin 2.1 H D AST 49 H ALT 26 Alkaline Phosphatase 81 Total Protein 8.3 H Albumin 3.7 Globulin 4.6 H Albumin/Globulin Ratio 0.8 L Quality Measures Quality Measures sepsis Current suspected stage: ruled out Possible source: other Blood cultures ordered: yes Antibiotic ordered: Yes Assessment & Plan Assessment Current Active Medications: Generic Name Dose Route Start Last Admin Trade Name Freq PRN Reason Stop Dose Admin Acetaminophen 500 mg 03/24/25 15:53 03/30/25 08:11 Acetaminophen Bonnie 325 Mg/10 Ml Udc GT 04/23/25 15:52 500 mg Q6H PRN Administration fever >100 or pain Albuterol/Ipratropium 3 ml 03/24/25 16:09 03/29/25 01:52 Albuterol/Ipratropium (Duoneb) Rt Bonnie 3 Ml Nebu INH 04/23/25 18:59 3 ml Q6HRRT PRN Administration dyspnea Enoxaparin Sodium 40 mg 03/24/25 16:15 03/30/25 08:08 Enoxaparin Sod Inj 40 Mg/0.4 Ml Syringe SC 04/07/25 16:14 40 mg QDAY CRISTY Administration Fluconazole 400 mg 03/25/25 16:00 03/30/25 09:55 Fluconazole Susp 40 Mg/Ml Ml GT 04/01/25 15:59 400 mg BID CRISTY Administration Guaifenesin 100 mg 03/29/25 14:00 03/30/25 06:21 Guaifenesin Syrup 200 Mg/10 Ml Udc GT 04/28/25 13:59 100 mg TID CRISTY Administration Protocol Ondansetron HCl 4 mg 03/24/25 15:57 Ondansetron Inj 2 Mg/Ml Inj 2 Ml IVP 04/23/25 15:56 Q8HR PRN NAUSEA OR VOMITING Protocol Plan 34 year old man in persistent vegetative state pMHX alcoholic cirrhotic liver disease/methamphetamine abuse s/p cardiac arrest with prolonged resuscitation resulting in anoxic encephalopathy referred from subacute due to fever up to 101F. Patient is mechanically ventilated, has a PEG in place, is non-verbal and comatose in a persistently vegetative state. ? #Goals of care discussion/counseling 03/26: Met with the family in the afternoon. Explained the patient's current health condition and the irreversibility of the brain injury. Patient understands that he will always be high risk readmission and further infections. Decision was made to transition to comfort care and patient extubation however family needs some time to gather more members. Discussed the plan with the charge nurse in the ICU and delinquency prevention social worker. Family mentioned later in the afternoon that they want about 24 hours before the day decide on the exact timing of compassionate extubation and family gathering. ? 03/27: GOC discussion done with 4 sisters at [address] Cuevas, delinquency prevention social worker present and 3 residents present (Dr. Yu, Dr. Smith and Dr. Bills). Family expresses significant frustrations regarding patient's treatment in subacute and current hospitalization treatment, distressed regarding care as patient was consistently found to have chapped bleeding lips, promise of bathing but still dirty, etc. Family questions plan of action of how withdrawing of ventilation will take place and medications required on hand, do not want him to have air hunger. Family reports other family (patient's mother, etc) are still have not yet arrived, but will be here tomorrow. Hospice and m48 m60 armor crewman consulted at family's request. Transfer orders for med-surg in place. Another GOC took place with delinquency prevention social worker and per delinquency prevention social worker, family would now like to postpone withdrawal of ventilation due to being informed that they need to plan services and find a home. They will let social work know when they find one. ? #Pneumonia, Ventilator-Associated vs Aspiration #SIRS (2/4) without presence of organ dysfunction At presentation, Clinical picture meets 2/4 SIRS criteria: T 100.4 (>100.9 or <96.8F), RR 24 (>20/min), HR 136 (>90/min), WBC 10.5 (>12 or <4K or Bands >10%). source of infection is in lungs evidenced by CXR enhanced vascular and interstitial markings. LA 4.0 ->0.9 UA was negative. ED gave cefepime IV 1g and vancomycin (pharmacy). Patient came in and found to have 2 or more SIRS criteria and was evaluated for sepsis. However, based upon further work-up, sepsis was ruled out. ? Cocci IgM Ag positive ? B ctx grew Staph haemolyticus in 1/2 bottles. MRSA (-) 03/29 Superimposed bacterial infection is unlikely or must have been treated for by 5 days of azithromycin and Zosyn as CXR is neagtive. Consider possibility of false negative cocci as this infection is unlikely at a long term 03/30 Sputum culture growing Pseudomonas sen Zosyn and Proteus mirabilis -patient is a pseudomonas colonizer likely. Plan: -ID, Dr Velazco, consulted; appreciate recommendations -Guaifenesin GT 100mg TID -Fluconazole GT 400mg bid (03/25 -) -Zosyn 3.375g Q8HR (03/24 -) -Azithromycin 500mg (03/24) and 250mg (03/25 -) -DC'ed Vancomycin pharm dosing -DuoNeb Q6h ? ? #Hx of vegetative state #Trach'd and Peg'd subacute order set reviewed Plan: -Dietitian referral in -Continuous tube feeding at 20cc/h with water flushes @25mL/h; advance to goal of 70cc/h ? #Thrombocytopenia #Hyperbilirubinemia #Cirrhosis US liver (02/14/2025) showed moderate hepatomegaly, cirrhosis, fatty infiltration with no focal liver lesions. T. bili 2.6, AST 84, Plt 103 ? -Monitor LFT on AM labs ? ? Health Maintenance: Code status: DNR DVT prophylaxis: Lovenox SC 40mg Qday GI prophylaxis: Famotidine Diet: Dietitian referral in [place]: yes Lines: PIV Supplemental O2: Mechanical ventilation Disposition: med surg, comfort care tomorrow to remove ventilation ? This case was discussed with my attending physician, Dr. García, and senior resident, Dr Rodriguez. Even though this this note was carefully revised there may still be minor errors in fish frog or oyster farmer due to voice recognition software. Harshad Causey DO PGY I Senior Resident Attestation: The patient's family are still pending on deciding the patient disposition. We will wait for their further decision. I discussed with and supervised the legal intern physician involved in the care of this patient. I personally saw and examined the patient and discussed the assessment and plan with the entire medicine team, including my attending. I agree with the assessment and plan as documented above. Jimi Rodriguez MD PGY3 Internal Medicine Attending Provider Attestation/Addendum I have discussed and was present for the essential components of the history, physical examination, diagnosis, and treatment plan with the resident. I agree with the patient's care as documented by the resident and amended herein by me. Abdullahi García DO. Although this document has been carefully reviewed, there may still be some phonetic and other typographical errors. These errors are purely grammatical due to imperfections in the software program and should not be construed in any way to compromise the substance of the patient's medical care during this visit.
[2025-03-31] VITALS (16 sets, daily range): BP systolic 141–164; BP diastolic 83–101; PULSE 94–125; RESP 16–29; TEMP 36.3–38.1; O2SAT 92–99; BMI 23.6
[2025-03-31] MEDS: ACETAMINOPHEN SOL 325 MG/10 ML UDC 500 MG GT (01:26)
[2025-03-31] MEDS: guaiFENesin SYRUP 200 MG/10 ML UDC 100 MG GT ×3 (05:46→21:33)
--- NOTE | 2025-03-31 07:14 | PD.IDPROG ---
Subjective Subjective Interval history: cocci unlikely as pt not outside ar all but test pos so have to wait for result from [facility]. I called [facility] Exam Vital Signs Temp Pulse Resp BP Pulse Ox O2 Del Method FiO2 99.3 F 105 H 22 H 144/90 H 95 Mechanical Ventilation 50 03/31/25 06:36 03/31/25 04:00 03/31/25 04:00 03/31/25 04:30 03/31/25 04:00 03/31/25 04:00 03/31/25 04:00 Narrative Exam limited eval today. Objective - Internal Medicine Labs 03/31/25 12:39 03/31/25 12:39 Assessment & Plan A&P Narrative cocci vs false pos cocci dnr status will narrow rx to semi empiric flucon, ok to stop it if test at [facility] neg. stopped zosyn as that seems superfluous at this point in time admittted with hs of fever but no fever noted since admit. and cxr neg . finished azithro too, so stopped that as well. acquisition of cocci is unlikely in a nh unless pt goes outside. but ok to wait till titer back . likely towards end of week. per [facility] call. Time Spent With Patient Time: Total time spent is greater than 50% in coordination of care (as documented) at patient's floor/unit and/or counseling patient:
--- NOTE | 2025-03-31 07:20 | CHAP ---
Patient was visited by a Spiritual Care Volunteer on 03/30/2025 between 0900 and 1130 and reeived comfort, encouragement and/or prayer.
[2025-03-31] MEDS: ALBUTEROL/IPRATROPIUM (Duoneb) RT SOL 3 ML NEBU INH (08:21)
[2025-03-31] MEDS: ENOXAPARIN SOD INJ 40 MG/0.4 ML SYRINGE SC (08:21)
[2025-03-31] MEDS: FLUCONAZOLE SUSP 40 MG/ML ML 400 MG GT ×2 (08:23→21:55)
--- NOTE | 2025-03-31 09:40 | CHAP ---
Patient was sleeping. Prayed quietly by bed.
--- NOTE | 2025-03-31 11:02 | PC.SS ---
Follow up note: Pt has fever 100.5. SS has communicated with Emily from [facility] who is aware. Emily explained patient's bed hold is and they will re assess for placement once pt is medically ready for dc if bed is still available.
[2025-03-31] MEDS: MAGNESIUM OXIDE 400 MG TABLET GT (11:23)
[2025-03-31 13:19] LABS: Basophils # (Auto) 0.0 Thou/mm3 (0.0-0.2); Basophils % (Auto) 0 % (0-2.5); Eosinophils # (Auto) 0.0 Thou/mm3 (0.0-0.5); Eosinophils % (Auto) 1 % (0-10); Hematocrit 39.8 % (41.0-53.0); Hemoglobin 13.1 g/dL (13.5-16.0); Immature Granulocytes Auto 0.02 Thou/mm3 (0.00-0.00); Lymphocytes # (Auto) 0.9 Thou/mm3 (1.0-4.8); Lymphocytes % (Auto) 14 % (10-50); Mean Corpuscular HGB Conc 32.9 g/dl (31.0-37.0); Mean Corpuscular Hemoglobin 27.8 pg (25.0-35.0); Mean Corpuscular Volume 84 fL (80-100); Monocytes # (Auto) 0.5 Thou/mm3 (0.0-0.8); Monocytes % (Auto) 8 % (0-12); Neutrophils # (Auto) 4.8 Thou/mm3 (1.8-7.7); Neutrophils % (Auto) 77 % (37-80); Nucleated Red Blood Cell # 0.00 Thou/mm3 (0.00-0.00); Nucleated Red Blood Cell % 0 /100 WBC (0); Platelet Count 127 Thou/mm3 (140-440); RDW Standard Deviation 52.1 fL (35.1-43.9); Red Blood Count 4.72 Miln/mm3 (4.50-5.90); White Blood Count 6.3 Thou/mm3 (3.8-10.6)
[2025-03-31 13:33] LABS: Alanine Aminotransferase 28 U/L (10-49); Albumin, Serum 4.0 gm/dL (3.5-5.0); Albumin/Globulin Ratio 0.9 (1.2-2.2); Alkaline Phosphatase 84 U/L (46-116); Anion Gap 12 (7-16); Aspartate Amino Transferase 52 U/L (0-34); BUN/Creatinine Ratio 30 Ratio (12-20); Bilirubin,Total 2.1 mg/dL (0.3-1.2); Blood Urea Nitrogen 15 mg/dL (9-23); Calcium 9.9 mg/dL (8.3-10.6); Calcium (Corrected) 9.9 mg/dL (8.5-10.1); Carbon Dioxide 26.1 mMol/L (20.0-31.0); Chloride 105 mMol/L (98-107); Creatinine (Component) 0.5 mg/dL (0.6-1.3); Estimated Creatinine Clearance 186.1 mL/min (>60); Globulin 4.4 gm/dL (2.3-3.5); Glucose 111 mg/dL (74-106); Osmolality,Calculated 286 (275-295); Potassium 4.0 mMol/L (3.4-5.1); Sodium 143 mMol/L (136-145); Total Protein 8.4 gm/dL (5.7-8.2); eGFR > 60 See Note
--- NOTE | 2025-03-31 14:01 | ESPR_ITS ---
Documentation for date of: 03/31/25 Subjective Subjective Interval history: Patient was seen and examined at bedside. No acute events took place overnight. Patient had fevers up to 103 on 2 measurements yesterday and 100.5 overnight. Patient will be staying in the light of recent fevers, and will need to be afebrile for 24 hours to be cleared for discharge. However, having to stay past noon today patient lost his space at the previous subacute. Family was notified prior to this action, who are unwilling towards the aforementioned subacute anyways. Spoke to sister Ms. Annia Goldstein yesterday morning who shared her disappointment patient's previous subacute. She voiced concerns over her broader being neglected. The family is unwilling to have the patient be discharged back to the previous subacute, and will only have him at the [facility], which at this time cannot accept the patient. Family also declined primary team's offer to seek subacute facilities further to the north and south of [place]. At this time they are still making arrangements for home, which has not been set up just yet. Patient primary decision-maker is his mother, who has given verbal affirmation for her daughter, patient's sister, to make the decisions with regard to patient's care. CXR (03/29) No gross infiltrates [increased interstitial markings Lt lung especially] VSS BP 141/83, HR 116, RR 23, 12/16 WBC 6.6, CMP ur, Mg 1.5 (MgO through G tube), T bili 2.1 Sputum culture growing Pseudomonas sen Zosyn and Proteus mirabilis Exam Vital Signs Temp Pulse Resp BP Pulse Ox O2 Del Method FiO2 99.6 F 112 H 18 141/86 H 95 Mechanical Ventilation 45 03/31/25 12:03/31/25 12:00 03/31/25 12:03/31/25 12:03/31/25 12:03/31/25 12:03/31/25 08:22 Narrative Exam GENERAL: AOx0 (chronic vegetative state), no acute distress, eyes open not tracking. Patient was noted to be in flexion at his joints and collecting his hands and arms in his bossom. HEENT: mucous membranes moist, bilateral sclera anicteric CARDIOVASCULAR: regular rate and rhythm, S1/S2 present, no murmurs appreciated PULMONARY: Tracheostomy on ventilation support. bilateral coarse breath sounds ABDOMINAL: soft, non-tender, non-distended, no rebound/guarding, bowel sounds present, PEG EXTREMITIES: no peripheral edema SKIN: warm and dry, intact, no rashes NEURO: vegetative state Objective Labs 03/31/25 12:39 03/31/25 12:39 Labs: Laboratory Results - last 24 hr 03/31/25 12:39 WBC 6.3 RBC 4.72 Hgb 13.1 L Hct 39.8 L MCV 84 MCH 27.8 MCHC 32.9 RDW Std Deviation 52.1 H Plt Count 127 L Neut % (Auto) 77 Lymph % (Auto) 14 [place] % (Auto) 8 Eos % (Auto) 1 Baso % (Auto) 0 Neut # (Auto) 4.8 Lymph # (Auto) 0.9 L [place] # (Auto) 0.5 Eos # (Auto) 0.0 Baso # (Auto) 0.0 Immature Gran # (Auto) 0.02 H Absolute Nucleated RBC 0.00 Immature Gran % 0 Nucleated RBC % 0 Sodium 143 Potassium 4.0 Chloride 105 Carbon Dioxide 26.1 Anion Gap 12 BUN 15 Creatinine 0.5 L Estim Creat Clear Calc 186.1 eGFR > 60 BUN/Creatinine Ratio 30 H Glucose 111 H Calculated Osmolality 286 Calcium 9.9 Corrected Calcium 9.9 Total Bilirubin 2.1 H AST 52 H ALT 28 Alkaline Phosphatase 84 Total Protein 8.4 H Albumin 4.0 Globulin 4.4 H Albumin/Globulin Ratio 0.9 L Quality Measures Quality Measures sepsis Current suspected stage: ruled out Possible source: other Blood cultures ordered: yes Antibiotic ordered: No Assessment & Plan Assessment Current Active Medications: Generic Name Dose Route Start Last Admin Trade Name Freq PRN Reason Stop Dose Admin Acetaminophen 500 mg 03/24/25 15:53 03/31/25 01:26 Acetaminophen Bonnie 325 Mg/10 Ml Udc GT 04/23/25 15:52 500 mg On Hold: 03/31/25 11:14 Q6H PRN Administration fever >100 or pain Albuterol/Ipratropium 3 ml 03/24/25 16:09 03/31/25 08:21 Albuterol/Ipratropium (Duoneb) Rt Bonnie 3 Ml Nebu INH 04/23/25 18:59 3 ml Q6HRRT PRN Administration dyspnea Enoxaparin Sodium 40 mg 12/10/25 16:15 03/31/25 08:21 Enoxaparin Sod Inj 40 Mg/0.4 Ml Syringe SC 04/07/25 16:14 40 mg QDAY CRISTY Administration Fluconazole 400 mg 03/25/25 16:00 03/31/25 08:23 Fluconazole Susp 40 Mg/Ml Ml GT 04/01/25 15:59 400 mg BID CRISTY Administration Guaifenesin 100 mg 03/29/25 14:00 03/31/25 05:46 Guaifenesin Syrup 200 Mg/10 Ml Udc GT 04/28/25 13:59 100 mg TID CRISTY Administration Protocol Acetaminophen 1,000 mg in 100 mls @ 250 mls/hr 03/31/25 11:14 Ofirmev Inj IV 04/01/25 00:23 Q6HR PRN Temp >100 Ondansetron HCl 4 mg 03/24/25 15:57 Ondansetron Inj 2 Mg/Ml Inj 2 Ml IVP 04/23/25 15:56 Q8HR PRN NAUSEA OR VOMITING Protocol Plan 34 year old man in persistent vegetative state pMHX alcoholic cirrhotic liver disease/methamphetamine abuse s/p cardiac arrest with prolonged resuscitation resulting in anoxic encephalopathy referred from subacute due to fever up to 101F. Patient is mechanically ventilated, has a PEG in place, is non-verbal and comatose in a persistently vegetative state. ? #Goals of care discussion/counseling 03/26: Met with the family in the afternoon. Explained the patient's current health condition and the irreversibility of the brain injury. Patient understands that he will always be high risk readmission and further infections. Decision was made to transition to comfort care and patient extubation however family needs some time to gather more members. Discussed the plan with the charge nurse in the ICU and social media marketing analyst. Family mentioned later in the afternoon that they want about 24 hours before the day decide on the exact timing of compassionate extubation and family gathering. ? 03/27: C discussion done with 4 sisters at [address] Cuevas, social media marketing analyst present and 3 residents present (Dr. Yu, Dr. Smith and Dr. Bills). Family expresses significant frustrations regarding patient's treatment in subacute and current hospitalization treatment, distressed regarding care as patient was consistently found to have chapped bleeding lips, promise of bathing but still dirty, etc. Family questions plan of action of how withdrawing of ventilation will take place and medications required on hand, do not want him to have air hunger. Family reports other family (patient's mother, etc) are still have not yet arrived, but will be here tomorrow. Hospice and watch train assembler consulted at family's request. Transfer orders for med-surg in place. Another GOC took place with social media marketing analyst and per social media marketing analyst, family would now like to postpone withdrawal of ventilation due to being informed that they need to plan services and find a home. They will let social work know when they find one. ? #Coccidiomycosis, cocci IgM positive on 03/25 #SIRS (2/4) without presence of organ dysfunction At presentation, Clinical picture meets 2/4 SIRS criteria: T 100.4 (>100.9 or <96.8F), RR 24 (>20/min), HR 136 (>90/min), WBC 10.5 (>12 or <4K or Bands >10%). source of infection is in lungs evidenced by CXR enhanced vascular and interstitial markings. LA 4.0 ->0.9 UA was negative. 03/29 Superimposed bacterial infection is unlikely or must have been treated for by 5 days of azithromycin and Zosyn as CXR is neagtive. Consider possibility of false negative cocci as this infection is unlikely at a jail 03/30 Sputum culture growing Pseudomonas sen Zosyn and Proteus mirabilis - patient is a pseudomonas colonizer likely. 03/31 Dr Velazco said that it would take a few days until fluconazole could start clearing cocci pneumonia. Antibiotics not indicated at this time. Plan: -ID, Dr Velazco, consulted; appreciate recommendations -Guaifenesin GT 100mg TID -Fluconazole GT 400mg bid (03/25 -) -Zosyn 3.375g Q8HR (03/24 -) -Azithromycin 500mg (03/24) and 250mg (03/25 -) -DC'ed Vancomycin pharm dosing -DuoNeb Q6h ? ? #Hx of vegetative state #Trach'd and Peg'd subacute order set reviewed Plan: -Dietitian referral in -Continuous tube feeding at 20cc/h with water flushes @25mL/h; advance to goal of 70cc/h ? #Thrombocytopenia #Hyperbilirubinemia #Cirrhosis US liver (02/14/2025) showed moderate hepatomegaly, cirrhosis, fatty infiltration with no focal liver lesions. T. bili 2.6, AST 84, Plt 103 ? -Monitor LFT on AM labs ? ? Health Maintenance: Code status: DNR DVT prophylaxis: Lovenox SC 40mg Qday GI prophylaxis: Famotidine Diet: Dietitian referral in [place]: yes Lines: PIV Supplemental O2: Mechanical ventilation Disposition: med surg, comfort care tomorrow to remove ventilation ? This case was discussed with my attending physician, Dr. García, and senior resident, Dr Rodriguez. Even though this this note was carefully revised there may still be minor errors in program writer due to voice recognition software. Harshad Causey DO PGY I Senior Resident Attestation: The patient reported doing well this morning. log chain worker and case assistant pending placement, but if by tomorrow there is no placement the patient will be discharged home with home health. She will be continued on current medications. I discussed with and supervised the photography intern physician involved in the care of this patient. I personally saw and examined the patient and discussed the assessment and plan with the entire medicine team, including my attending. I agree with the assessment and plan as documented above. Jimi Rodriguez MD PGY3 Internal Medicine Attending Provider Attestation/Addendum I have discussed and was present for the essential components of the history, physical examination, diagnosis, and treatment plan with the resident. I agree with the patient's care as documented by the resident and amended herein by me. Abdullahi García DO. Although this document has been carefully reviewed, there may still be some phonetic and other typographical errors. These errors are purely grammatical due to imperfections in the software program and should not be construed in any way to compromise the substance of the patient's medical care during this visit. Patient seen and evaluated this AM. Vital signs stable, patient afebrile overnight, Tmax 102.1. Pulse ranges from mid 90s to 110s. CBC largely unremarkable, WBC WNL, CMP demonstrating normal sodium potassium, carbon dioxide 26, normal renal function, T. bili 2.1, unchanged from previous day. Last checks x-ray on 03/29 demonstrating no gross infiltrates. Cocci IgM positive on 03/25. Patient was on Zosyn for possible superimposed bacterial infection however stopped by infectious disease. Patient was febrile however likely secondary to cocci at this point, likely will take a few days to resolve with the fluconazole which she is on at 400 mg daily. Cocci titers still pending. We did order repeat blood cultures however to be cautious which are pending. Patient was on Zosyn from 03/24 to 03/29. Was also on azithromycin from 03/25 also to 03/29. I did speak with the family today, they are still looking for a home for the patient as they plan on removing the patient from ventilator support later in the week. They stated they do not want the patient to go back to our own subacute as they have a investigation pending on the facility. We will hold the patient regardless in setting of fever overnight although as stated above, this is possibly from the cocci and will just take time to resolve with antifungal medication. Will continue to monitor closely
--- NOTE | 2025-03-31 19:42 | PC.NURSE ---
Patient's family member upset regarding patient not having any oral care. It was explained to the family member that we just currently had changed of shift. Patient's family member was also educated on when we would give the patient tylenol and pain medications. MD Krueger and charge nurse have been notified regarding the patient's family member being verbally aggressive. Patient's family member also made notes about who the night nurses for the patient is and what time does the day shift come and goes. Patient's family member also made notes about what time does the day shift come and leave.
--- NOTE | 2025-03-31 20:20 | PC.NURSE ---
Dr. Marte arrived on unit to talk to patient's family member. Joceline's family member (Sister) voiced her concern of her brother not recieving proper care in the faucility ever since he has been transferred from Sub Acute to ICU to [facility]. Per sister, it has been ongoing issue from each unit. Per sister and sister's would like patient to be on comfort measures so that he can have pain medicine to be given for comfort. After talking with the patient, Dr. Marte put in an order for morphine for paitient's pain when ever the patient is in discomfort. Sister and sister's was made aware of new order.
--- NOTE | 2025-03-31 20:29 | EVENTNT_ITS ---
Documentation for date of: 03/31/25 Event Note Event Note: At 2004, nursing staff notified hospitalist team that the patient's family would like to speak to a physician regarding the patient's pain management. At 2009, a goals of care discussion took place with myself (Dr. Marte), the patient's RN Sagar, the patient's sister (who claimed to be the patient's power of banking attorney) Annia Goldstein, and the patient's [id number] Ned Goldstein. The patient sister expressed frustration and concern regarding the patient's care as she feels that the patient is not getting appropriate pain medication and oral care. The patient sister noted that the patient should be receiving Tylenol more frequently to become more comfortable as the patient appears to be in pain and in distress when she visits the patient. The conversation opened up by asking the patient's sister what she would like in terms of care for the patient beyond just Tylenol. The differences between comfort measures and comfort care was explained to the patient's sister. The patient sister, after obtaining clarification, would note that eventually she would like to pursue comfort care eventually, but does not feel comfortable doing that at this time as she is not yet able to get her family altogether yet so that they can all be there for the patient when he is disconnected from mechanical ventilation. As of right now, the patient's sister would prefer pursuing pain control so that pain medication may be given to the patient at signs of possible distress or when the patient simply appears uncomfortable so that the patient may feel more comfortable as his status continues to decline. The patient sister stated that she expects to have another possible goals of care discussion on 04/02/2025 about possibly pursuing comfort care, but as of right now she would just like pain control for her brother. This information will then be repeated to the patient sister, to which the patient's sister once again agreed to and understood the implications of her request. It was explained to the patient sister that nursing staff have multiple patients that they must manage beyond just her brother, so there may be periods where the patient will have delays in receiving pain medication. The patient's sister appeared to be understanding of this restraint. At the conclusion of this close of care discussion, the hospitalist team will place orders for one-time dose of Tylenol, and place an order for IV morphine pushes if the patient appears uncomfortable, clammy, or shows any sign of being in distress. The pros and cons of additional pain medication was discussed with the patient's sister, to which she is agreeable to. Will plan for next goals of care discussion on Saturday04/02/2025 Patient plan of care was discussed with attending physician Dr. Radha Marte, PGY1
[2025-03-31] MEDS: MORPHINE SULF INJ 4 MG/ML VIAL 1 MG IVP (22:40)
--- NOTE | 2025-03-31 22:54 | PC.NURSE ---
Oral care was perfomed on patient. When doing oral care night nurse Sagar noticed bleeding from the gums when brushing patient's teeth and tongue. Yaunker was used to help prevent water from collecting in the patient's mouth. After oral care was performed patient's mouth was now pink in color. Before oral care the patient had a lot of black patches on his tongue and upper palate. Most of the black build up have been removed and pain medication was given to patient. Patient was also repositioned.
[2025-04-01] VITALS (14 sets, daily range): BP systolic 120–126; BP diastolic 88–97; PULSE 82–123; RESP 15–26; TEMP 36.1–38.4; O2SAT 93–97
[2025-04-01] MEDS: ACETAMINOPHEN SOL 325 MG/10 ML UDC 650 MG GT (01:03)
[2025-04-01] MEDS: guaiFENesin SYRUP 200 MG/10 ML UDC 100 MG GT ×3 (05:03→21:47)
[2025-04-01 05:31] LABS: Basophils # (Auto) 0.0 Thou/mm3 (0.0-0.2); Basophils % (Auto) 0 % (0-2.5); Eosinophils # (Auto) 0.1 Thou/mm3 (0.0-0.5); Eosinophils % (Auto) 1 % (0-10); Hematocrit 40.6 % (41.0-53.0); Hemoglobin 13.2 g/dL (13.5-16.0); Immature Granulocytes Auto 0.02 Thou/mm3 (0.00-0.00); Lymphocytes # (Auto) 0.9 Thou/mm3 (1.0-4.8); Lymphocytes % (Auto) 11 % (10-50); Mean Corpuscular HGB Conc 32.5 g/dl (31.0-37.0); Mean Corpuscular Hemoglobin 27.7 pg (25.0-35.0); Mean Corpuscular Volume 85 fL (80-100); Monocytes # (Auto) 0.6 Thou/mm3 (0.0-0.8); Monocytes % (Auto) 7 % (0-12); Neutrophils # (Auto) 7.0 Thou/mm3 (1.8-7.7); Neutrophils % (Auto) 81 % (37-80); Nucleated Red Blood Cell # 0.00 Thou/mm3 (0.00-0.00); Nucleated Red Blood Cell % 0 /100 WBC (0); Platelet Count 129 Thou/mm3 (140-440); RDW Standard Deviation 52.0 fL (35.1-43.9); Red Blood Count 4.76 Miln/mm3 (4.50-5.90); White Blood Count 8.6 Thou/mm3 (3.8-10.6)
[2025-04-01 06:17] LABS: Alanine Aminotransferase 30 U/L (10-49); Albumin, Serum 3.6 gm/dL (3.5-5.0); Albumin/Globulin Ratio 0.7 (1.2-2.2); Alkaline Phosphatase 84 U/L (46-116); Anion Gap 11 (7-16); Aspartate Amino Transferase 52 U/L (0-34); BUN/Creatinine Ratio 32 Ratio (12-20); Bilirubin,Total 1.9 mg/dL (0.3-1.2); Blood Urea Nitrogen 16 mg/dL (9-23); Calcium 10.2 mg/dL (8.3-10.6); Calcium (Corrected) 10.5 mg/dL (8.5-10.1); Carbon Dioxide 26.4 mMol/L (20.0-31.0); Chloride 103 mMol/L (98-107); Creatinine (Component) 0.5 mg/dL (0.6-1.3); Estimated Creatinine Clearance 186.1 mL/min (>60); Globulin 4.9 gm/dL (2.3-3.5); Glucose 109 mg/dL (74-106); Osmolality,Calculated 281 (275-295); Potassium 3.6 mMol/L (3.4-5.1); Sodium 140 mMol/L (136-145); Total Protein 8.5 gm/dL (5.7-8.2); eGFR > 60 See Note
[2025-04-01] MEDS: ENOXAPARIN SOD INJ 40 MG/0.4 ML SYRINGE SC (08:06)
[2025-04-01] MEDS: FLUCONAZOLE SUSP 40 MG/ML ML 400 MG GT (08:06)
--- NOTE | 2025-04-01 12:21 | PC.SS ---
SS received call from patient's sister, Annia, phone# [phone] who states she has located a home in [facility] and is requesting to withdraw care for pt on Saturday. SS has informed Annia to speak with attending physician, Dr. Mclaughlin for request. SS updated physician who then spoke to sister over the phone to receive verbal consent to withdraw care on Saturday.
--- NOTE | 2025-04-01 14:01 | ESPR_ITS ---
Documentation for date of: 04/01/25 Subjective Subjective Interval history: Patient was seen and examined at bedside. No acute events took place overnight. Patient had fever of 101.1 overnight which improved after acetaminophen GT. Family states that they are going to be ready for comfort care Saturday with necessary accommodations for proper discharging post-extubation. Morphine IVP 1mg Q4h PRN patient appearing to be uncomfortable. After speaking to sister Ms. Annia Goldstein, she shared her disappointment patient's previous subacute. She voiced concerns over her broader being neglected. The family is unwilling to have the patient be discharged back to the previous subacute, and will only have him at the [facility], which at this time cannot accept the patient. Family also declined primary team's offer to seek subacute facilities further to the north and south [facility]. Family will arrange for home. Patient primary decision-maker is his mother, who has given verbal affirmation for her daughter, patient's sister, to make the decisions with regard to patient's care. CXR (03/29) No gross infiltrates [increased interstitial markings Lt lung especially] Sputum culture grew Pseudomonas sen Zosyn and Proteus mirabilis labs showed mild thrombocytopenia and hyperbilirubinemia Exam Vital Signs Temp Pulse Resp BP Pulse Ox O2 Del Method FiO2 97.0 F 101 H 17 120/88 H 97 Mechanical Ventilation 45 04/01/25 12:00 04/01/25 13:24 04/01/25 12:00 04/01/25 12:00 04/01/25 13:24 04/01/25 12:00 04/01/25 13:24 Narrative Exam GENERAL: AOx0 (chronic vegetative state), no acute distress, eyes open not tracking. Patient was noted to be in flexion at his joints and collecting his hands and arms in his bossom. HEENT: mucous membranes moist, bilateral sclera anicteric CARDIOVASCULAR: regular rate and rhythm, S1/S2 present, no murmurs appreciated PULMONARY: Tracheostomy on ventilation support. bilateral coarse breath sounds ABDOMINAL: soft, non-tender, non-distended, no rebound/guarding, bowel sounds present, PEG EXTREMITIES: no peripheral edema SKIN: warm and dry, intact, no rashes NEURO: vegetative state Objective Labs 04/01/25 04:48 04/01/25 04:48 Labs: Laboratory Results - last 24 hr 04/01/25 04:48 WBC 8.6 RBC 4.76 Hgb 13.2 L Hct 40.6 L MCV 85 MCH 27.7 MCHC 32.5 RDW Std Deviation 52.0 H Plt Count 129 L Neut % (Auto) 81 H Lymph % (Auto) 11 [place] % (Auto) 7 Eos % (Auto) 1 Baso % (Auto) 0 Neut # (Auto) 7.0 Lymph # (Auto) 0.9 L [place] # (Auto) 0.6 Eos # (Auto) 0.1 Baso # (Auto) 0.0 Immature Gran # (Auto) 0.02 H Absolute Nucleated RBC 0.00 Immature Gran % 0 Nucleated RBC % 0 Sodium 140 Potassium 3.6 Chloride 103 Carbon Dioxide 26.4 Anion Gap 11 BUN 16 Creatinine 0.5 L Estim Creat Clear Calc 186.1 eGFR > 60 BUN/Creatinine Ratio 32 H Glucose 109 H Calculated Osmolality 281 Calcium 10.2 Corrected Calcium 10.5 H Total Bilirubin 1.9 H AST 52 H ALT 30 Alkaline Phosphatase 84 Total Protein 8.5 H Albumin 3.6 Globulin 4.9 H Albumin/Globulin Ratio 0.7 L Quality Measures Quality Measures sepsis Current suspected stage: ruled out Possible source: other Blood cultures ordered: yes Antibiotic ordered: Yes Assessment & Plan Assessment Current Active Medications: Generic Name Dose Route Start Last Admin Trade Name Freq PRN Reason Stop Dose Admin Acetaminophen 500 mg 03/24/25 15:53 03/31/25 01:26 Acetaminophen Bonnie 325 Mg/10 Ml Udc GT 04/23/25 15:52 500 mg Q6H PRN Administration fever >100 or pain Albuterol/Ipratropium 3 ml 03/24/25 16:09 03/31/25 08:21 Albuterol/Ipratropium (Duoneb) Rt Bonnie 3 Ml Nebu INH 04/23/25 18:59 3 ml Q6HRRT PRN Administration dyspnea Enoxaparin Sodium 40 mg 03/24/25 16:15 04/01/25 08:06 Enoxaparin Sod Inj 40 Mg/0.4 Ml Syringe SC 04/07/25 16:14 40 mg QDAY CRISTY Administration Fluconazole 400 mg 04/02/25 09:00 Fluconazole Susp 40 Mg/Ml Ml GT 04/09/25 08:59 DAILY CRISTY Guaifenesin 100 mg 03/29/25 14:00 04/01/25 05:03 Guaifenesin Syrup 200 Mg/10 Ml Udc GT 04/28/25 13:59 100 mg TID CRISTY Administration Protocol Morphine Sulfate 1 mg 03/31/25 21:06 03/31/25 22:40 Morphine Sulf Inj 4 Mg/Ml Vial IVP 04/05/25 21:05 1 mg Q4H PRN Administration Patient appears uncomfortable Ondansetron HCl 4 mg 03/24/25 15:57 Ondansetron Inj 2 Mg/Ml Inj 2 Ml IVP 04/23/25 15:56 Q8HR PRN NAUSEA OR VOMITING Protocol Plan 34 year old man in persistent vegetative state pMHX alcoholic cirrhotic liver disease/methamphetamine abuse s/p cardiac arrest with prolonged resuscitation resulting in anoxic encephalopathy referred from subacute due to fever up to 101F. Patient is mechanically ventilated, has a PEG in place, is non-verbal and comatose in a persistently vegetative state. ? #Goals of care discussion/counseling 03/26: Met with the family in the afternoon. Explained the patient's current health condition and the irreversibility of the brain injury. Patient understands that he will always be high risk readmission and further infections. Decision was made to transition to comfort care and patient extubation however family needs some time to gather more members. Discussed the plan with the charge nurse in the ICU and social media marketing analyst. Family mentioned later in the afternoon that they want about 24 hours before the day decide on the exact timing of compassionate extubation and family gathering. ? 03/27: GOC discussion done with 4 sisters at [address] Cuevas, social media marketing analyst present and 3 residents present (Dr. Yu, Dr. Smith and Dr. Bills). Family expresses significant frustrations regarding patient's treatment in subacute and current hospitalization treatment, distressed regarding care as patient was consistently found to have chapped bleeding lips, promise of bathing but still dirty, etc. Family questions plan of action of how withdrawing of ventilation will take place and medications required on hand, do not want him to have air hunger. Family reports other family (patient's mother, etc) are still have not yet arrived, but will be here tomorrow. Hospice and painter and decorator apprentice consulted at family's request. Transfer orders for med-surg in place. Another GOC took place with social media marketing analyst and per social media marketing analyst, family would now like to postpone withdrawal of ventilation due to being informed that they need to plan services and find a home. They will let social work know when they find one. ? #Coccidiomycosis, cocci IgM positive on 03/25 #SIRS (2/4) without presence of organ dysfunction At presentation, Clinical picture meets 2/4 SIRS criteria: T 100.4 (>100.9 or <96.8F), RR 24 (>20/min), HR 136 (>90/min), WBC 10.5 (>12 or <4K or Bands >10%). source of infection is in lungs evidenced by CXR enhanced vascular and interstitial markings. LA 4.0 ->0.9 UA was negative. 03/29 Superimposed bacterial infection is unlikely or must have been treated for by 5 days of azithromycin and Zosyn as CXR is neagtive. Consider possibility of false negative cocci as this infection is unlikely at a [facility] 03/30 Sputum culture growing Pseudomonas sen Zosyn and Proteus mirabilis - patient is a pseudomonas colonizer likely. 03/31 Dr Velazco said that it would take a few days until fluconazole could start clearing cocci pneumonia. Antibiotics not indicated at this time. 04/01 Family states that they are going to be ready for comfort care Saturday with necessary accommodations for proper discharging post-extubation. Plan: -ID, Dr Velazco, consulted; appreciate recommendations -Guaifenesin GT 100mg TID -Fluconazole GT 400mg bid (03/25 -) -APAP GT 650mg x1 and 500mg Q6h PRN fever/pain -Morphine IVP 1mg Q4h PRN patient appears to be uncomfortable -Zosyn 3.375g Q8HR (03/24 -) -Azithromycin 500mg (03/24) and 250mg (03/25 -) -DC'ed Vancomycin pharm dosing -DuoNeb Q6h ? ? #Hx of vegetative state #Trach'd and Peg'd subacute order set reviewed Plan: -Dietitian referral in -Decrease tube feeds to 35 ml/hr via PEG tube by pump (do not advance). If no IV fluids, water flushes of 25 ml/hr (or per MD). ? #Thrombocytopenia #Hyperbilirubinemia #Cirrhosis US liver (02/14/2025) showed moderate hepatomegaly, cirrhosis, fatty infiltration with no focal liver lesions. T. bili 2.6, AST 84, Plt 103 ? -Monitor LFT on AM labs ? ? Health Maintenance: Code status: DNR DVT prophylaxis: Lovenox SC 40mg Qday GI prophylaxis: Famotidine Diet: Dietitian referral in [place]: yes Lines: PIV Supplemental O2: Mechanical ventilation Disposition: med surg, comfort care tomorrow to remove ventilation ? This case was discussed with my attending physician, Dr. Mclaughlin, and senior resident, Dr Rodriguez. Even though this this note was carefully revised there may still be minor errors in environmental services tech due to voice recognition software. Harshad Causey, DO PGY I Senior Resident Attestation: The patient had 1 episode of fever with 101.1 Fahrenheit overnight, and we are continuing the patient on Zosyn. The patient family reported that they will be ready for changing the patient status to comfort care coming Saturday, in the meantime we will continue to treat him. I discussed with and supervised the post graduate intern physician involved in the care of this patient. I personally saw and examined the patient and discussed the assessment and plan with the entire medicine team, including my attending. I agree with the assessment and plan as documented above. Jimi Rodriguez MD PGY3 Internal Medicine Attending Provider Attestation/Addendum I have seen and examined the patient. I was physically present for the prieto portions of the services provided including history, physical exam, diagnosis, treatment plans and orders. I agree with assessment and plan of care as documented by residents. Even though this this note was carefully revised there may still be minor errors in environmental services tech due to voice recognition software. Sarah Mclaughlin MD
[2025-04-02] VITALS (11 sets, daily range): BP systolic 112–144; BP diastolic 60–97; PULSE 69–880; RESP 13–24; TEMP 36.2–37.1; O2SAT 92–100
[2025-04-02] MEDS: guaiFENesin SYRUP 200 MG/10 ML UDC 100 MG GT ×3 (05:02→21:43)
[2025-04-02 05:55] LABS: Basophils # (Auto) 0.0 Thou/mm3 (0.0-0.2); Basophils % (Auto) 0 % (0-2.5); Eosinophils # (Auto) 0.1 Thou/mm3 (0.0-0.5); Eosinophils % (Auto) 1 % (0-10); Hematocrit 41.4 % (41.0-53.0); Hemoglobin 13.4 g/dL (13.5-16.0); Immature Granulocytes Auto 0.02 Thou/mm3 (0.00-0.00); Lymphocytes # (Auto) 0.9 Thou/mm3 (1.0-4.8); Lymphocytes % (Auto) 18 % (10-50); Mean Corpuscular HGB Conc 32.4 g/dl (31.0-37.0); Mean Corpuscular Hemoglobin 27.9 pg (25.0-35.0); Mean Corpuscular Volume 86 fL (80-100); Monocytes # (Auto) 0.6 Thou/mm3 (0.0-0.8); Monocytes % (Auto) 11 % (0-12); Neutrophils # (Auto) 3.7 Thou/mm3 (1.8-7.7); Neutrophils % (Auto) 70 % (37-80); Nucleated Red Blood Cell # 0.00 Thou/mm3 (0.00-0.00); Nucleated Red Blood Cell % 0 /100 WBC (0); Platelet Count 110 Thou/mm3 (140-440); RDW Standard Deviation 53.4 fL (35.1-43.9); Red Blood Count 4.80 Miln/mm3 (4.50-5.90); White Blood Count 5.2 Thou/mm3 (3.8-10.6)
[2025-04-02 06:23] LABS: Alanine Aminotransferase 30 U/L (10-49); Albumin, Serum 3.7 gm/dL (3.5-5.0); Albumin/Globulin Ratio 0.8 (1.2-2.2); Alkaline Phosphatase 83 U/L (46-116); Anion Gap 10 (7-16); Aspartate Amino Transferase 60 U/L (0-34); BUN/Creatinine Ratio 28 Ratio (12-20); Bilirubin,Total 1.6 mg/dL (0.3-1.2); Blood Urea Nitrogen 14 mg/dL (9-23); Calcium 10.1 mg/dL (8.3-10.6); Calcium (Corrected) 10.3 mg/dL (8.5-10.1); Carbon Dioxide 27.3 mMol/L (20.0-31.0); Chloride 102 mMol/L (98-107); Creatinine (Component) 0.5 mg/dL (0.6-1.3); Estimated Creatinine Clearance 186.1 mL/min (>60); Globulin 4.8 gm/dL (2.3-3.5); Glucose 94 mg/dL (74-106); Osmolality,Calculated 278 (275-295); Potassium 4.2 mMol/L (3.4-5.1); Sodium 139 mMol/L (136-145); Total Protein 8.5 gm/dL (5.7-8.2); eGFR > 60 See Note
--- NOTE | 2025-04-02 07:32 | ESPR_ITS ---
Subjective Subjective Interval history: cocci neg at [facility]. would repeat cxr in 4 weeks. sooner if worsens Exam Vital Signs Temp Pulse Resp BP Pulse Ox O2 Del Method FiO2 98.8 F 93 13 144/97 H 98 Mechanical Ventilation 50 04/02/25 04:00 04/02/25 04:00 04/02/25 04:00 04/02/25 04:00 04/02/25 04:00 04/01/25 16:00 04/02/25 04:00 Narrative Exam not interactive. cocci neg. cxr neg Objective - Internal Medicine Labs 04/02/25 04:45 04/02/25 04:45 Labs: Laboratory Results - last 24 hr 04/02/25 04:45 WBC 5.2 RBC 4.80 Hgb 13.4 L Hct 41.4 MCV 86 MCH 27.9 MCHC 32.4 RDW Std Deviation 53.4 H Plt Count 110 L Neut % (Auto) 70 Lymph % (Auto) 18 [place] % (Auto) 11 Eos % (Auto) 1 Baso % (Auto) 0 Neut # (Auto) 3.7 Lymph # (Auto) 0.9 L [place] # (Auto) 0.6 Eos # (Auto) 0.1 Baso # (Auto) 0.0 Immature Gran # (Auto) 0.02 H Absolute Nucleated RBC 0.00 Immature Gran % 0 Nucleated RBC % 0 Sodium 139 Potassium 4.2 D Chloride 102 Carbon Dioxide 27.3 Anion Gap 10 BUN 14 Creatinine 0.5 L Estim Creat Clear Calc 186.1 eGFR > 60 BUN/Creatinine Ratio 28 H Glucose 94 Calculated Osmolality 278 Calcium 10.1 Corrected Calcium 10.3 H Total Bilirubin 1.6 H AST 60 H ALT 30 Alkaline Phosphatase 83 Total Protein 8.5 H Albumin 3.7 Globulin 4.8 H Albumin/Globulin Ratio 0.8 L Assessment & Plan A&P Narrative false pos cocci cxr neg and cocci test at [facility] neg dnr status stopped Zosyn the other day as that seemed superfluous cxr neg . finished Azithro too, so stopped that as well. acquisition of cocci is unlikely in a nh unless pt goes outside. w/u of fever per primary team. can see saturday if still here. no objetion to palliative care or hospice care if family agrees Time Spent With Patient Time: Total time spent is greater than 50% in coordination of care (as documented) at patient's floor/unit and/or counseling patient:
--- NOTE | 2025-04-02 08:53 | PC.SS ---
Follow up note: Physician residents will follow up with patient's sister tomorrow regarding withdrawing care and family arranging the home in [place].
[2025-04-02] MEDS: FLUCONAZOLE SUSP 40 MG/ML ML 400 MG GT (09:06)
[2025-04-02] MEDS: ENOXAPARIN SOD INJ 40 MG/0.4 ML SYRINGE SC (09:06)
--- NOTE | 2025-04-02 10:00 | CHAP ---
Request from family for hospital nursing assistant to come. Was visited and prayed for.
[2025-04-02 10:26] LABS: Magnesium 1.4 mg/dL (1.6-2.6); Phosphorous 4.3 mg/dL (2.4-5.1)
--- NOTE | 2025-04-02 11:56 | PC.SS ---
SS received call from patient's sister, Annia who states family will be arriving tomorrow, Saturday around 9am to bedside and [facility] 10[facility]. SS has contacted Pilo from [facility] who is aware. has provided Pilo with Annia, patient's sister's phone# and patient's name and room #. was informed by Pilo from [facility] he has contacted a behavioral geneticist from [facility] and they will arrive to bedside on Saturday at 10am and also provided patient's sister's phone#. Annia is aware. Charge NurseMilo is aware and family will be arriving Saturday. SS provided Annia with physicians name and SS on Saturday.
--- NOTE | 2025-04-02 14:49 | PD.RESDS ---
Planned Discharge Date 04/02/25 DS: Providers Provider Date of admission: 03/24/25 13:50 Primary care physician: Physician No Primary/Family Admitting Provider: Mario Rodríguez MD Attending Provider on Admission: Sarah Mclaughlin MD Consults: 03/24/25 14:33 Referral Registered Dietitian Routine Comment: for tube feeds 03/25/25 15:52 Consult to Infectious Diseases Routine Comment: Patient cocci positive, outpatient mgmt Consulting Provider: Roel Velazco 03/27/25 11:51 Referral Shahnaz Stat Comment: Referral Hospice Stat Comment: Attending Provider on DC: Gerardo Bills MD Discharging Provider: Gerardo Bills MD Hospital Course Hospital Course Hospital course: Patient was seen and examined at bedside. No acute events took place overnight. Patient had fever of 101.1 overnight which improved after acetaminophen GT. Family states that they are going to be ready for comfort care Saturday with necessary accommodations for proper discharging post-extubation. Morphine IVP 1mg Q4h PRN patient appearing to be uncomfortable. After speaking to sister Ms. Annia Goldstein, she shared her disappointment patient's previous subacute. She voiced concerns over her broader being neglected. The family is unwilling to have the patient be discharged back to the previous subacute, and will only have him at the [facility], which at this time cannot accept the patient. Family also declined primary team's offer to seek subacute facilities further to the north and south [facility]. Family will arrange for home. Patient primary decision-maker is his mother, who has given verbal affirmation for her daughter, patient's sister, to make the decisions with regard to patient's care. CXR (03/29) No gross infiltrates [increased interstitial markings Lt lung especially] Sputum culture grew Pseudomonas sen Zosyn and Proteus mirabilis labs showed mild thrombocytopenia and hyperbilirubinemia Time Spent with Patient Time attestation: Total time spent providing and/or coordinating discharge services: Exam Vital Signs Temp Pulse Resp BP Pulse Ox O2 Del Method FiO2 97.4 F 90 20 112/73 92 L Room Air 45 04/02/25 12:00 04/02/25 12:00 04/02/25 12:00 04/02/25 12:00 04/02/25 12:00 04/02/25 12:00 04/02/25 06:20 Discharge Plan Prescriptions/Referrals Prescriptions/Med Rec: No Action bisacodyl [Dulcolax (bisacodyl)] 10 mg Suppository 10 mg IA PRN PRN (Reason: No BM Per Bowel Management Protocol) Rx Instructions: Administer as needed on 6th shift, if MOM ineffective. polyethylene glycol 3350 17 gram Powder In Packet 17 g G-tube PRN PRN (Reason: No BM Per Bowel Management Protocol) Patient Comments: Administer as needed if 2nd round bowel protocol ineffective. Rx Instructions: Mix with 4oz of water before giving. Hold tube feeding for 30 minutes after administration. Notify provider if no results from Miralax. Fleet Enema 19-7 gram/118 mL Enema 133 ml IA PRN PRN (Reason: No BM Per Bowel Management Protocol) Patient Comments: If Dulcolax is ineffective on 3rd day / 7th shift, give Fleets enema per Bowel Management Protocol. Notify MD if no results from Enema. magnesium hydroxide [Milk of Magnesia] 400 mg/5 mL Suspension 30 ml G-tube PRN PRN (Reason: Constipation) Rx Instructions: CONC: 400MG/5ML Ear Wax Removal Drops 6.5 % Drops 5 drp otic (ear) Q61D Rx Instructions: 5 drops per ear at first med pass of shift. Then irrigate ears with NS at next med pass of each shift x 4 days for wax build up. *Start on the of the month, every two months. Ear Wax Removal Drops 6.5 % Drops 5 drp otic (ear) Q61D Patient Comments: 5 drops per ear at first med pass of shift. Then irrigate ears with NS at next med pass of each shift x 4 days for wax build up. Ear Wax Removal Drops 6.5 % Drops 5 drp otic (ear) Q61D Patient Comments: 5 drops per ear at first med pass of shift. Then irrigate ears with NS at next med pass of each shift x 4 days for wax build up. Ear Wax Removal Drops 6.5 % Drops 5 drp otic (ear) Q61D Patient Comments: 5 drops per ear at first med pass of shift. Then irrigate ears with NS at next med pass of each shift x 4 days for wax build up. Ear Wax Removal Drops 6.5 % Drops 5 drp otic (ear) Q61D Rx Instructions: 5 drops per ear at first med pass of shift. Then irrigate ears with NS at next med pass of each shift x 4 days for wax build up. *Start on the of the month, every two months. Ear Wax Removal Drops 6.5 % Drops 5 drp otic (ear) Q61D Rx Instructions: 5 drops per ear at first med pass of shift. Then irrigate ears with NS at next med pass of each shift x 4 days for wax build up. *Start on the of the month, every two months. Ear Wax Removal Drops 6.5 % Drops 5 drp otic (ear) Q61D Patient Comments: 5 drops per ear at first med pass of shift. Then irrigate ears with NS at next med pass of each shift x 4 days for wax build up. guaifenesin [Jayla-Tussin] 100 mg/5 mL Liquid 300 mg G-tube Q6HR PRN (Reason: Cough) Patient Comments: Give [id number] Rx Instructions: Conc: 100MG/5ML Ear Wax Removal Drops 6.5 % Drops 5 drp otic (ear) Q61D Patient Comments: 5 drops per ear at first med pass of shift. Then irrigate ears with NS at next med pass of each shift x 4 days for wax build up. ipratropium-albuterol 0.5 mg-3 mg(2.5 mg base)/3 mL Solution For Nebulization 3 ml INH Q6HRRT acetaminophen 325 mg Tablet 650 mg G-tube Q6HR PRN (Reason: Pain) Rx Instructions: (Give 325mg [id number]) NTE APAP 3gms/24hours Referrals: No Primary/Family,Physician [Primary Care Provider] Patient/Caregiver Discharge Instructions Print Language: Khmer
--- NOTE | 2025-04-02 14:54 | PD.RESPRO ---
Documentation for date of: 04/02/25 Subjective Subjective Interval history: Patient seen and examined at bedside; no acute events overnight. Exam Vital Signs Temp Pulse Resp BP Pulse Ox O2 Del Method FiO2 97.4 F 90 20 112/73 92 L Room Air 45 04/02/25 12:00 04/02/25 12:00 04/02/25 12:00 04/02/25 12:00 04/02/25 12:00 04/02/25 12:00 04/02/25 06:20 Narrative Exam GENERAL: AOx0 (chronic vegetative state), no acute distress, eyes open not tracking. Patient was noted to be in flexion at his joints and collecting his hands and arms in his bossom. HEENT: mucous membranes moist, bilateral sclera anicteric CARDIOVASCULAR: regular rate and rhythm, S1/S2 present, no murmurs appreciated PULMONARY: Tracheostomy on ventilation support. bilateral coarse breath sounds ABDOMINAL: soft, non-tender, non-distended, no rebound/guarding, bowel sounds present, PEG EXTREMITIES: no peripheral edema SKIN: warm and dry, intact, no rashes NEURO: vegetative state Objective Labs 04/02/25 04:45 04/02/25 04:45 Labs: Laboratory Results - last 24 hr 04/02/25 04:45 WBC 5.2 RBC 4.80 Hgb 13.4 L Hct 41.4 MCV 86 MCH 27.9 MCHC 32.4 RDW Std Deviation 53.4 H Plt Count 110 L Neut % (Auto) 70 Lymph % (Auto) 18 Carver % (Auto) 11 Eos % (Auto) 1 Baso % (Auto) 0 Neut # (Auto) 3.7 Lymph # (Auto) 0.9 L Carver # (Auto) 0.6 Eos # (Auto) 0.1 Baso # (Auto) 0.0 Immature Gran # (Auto) 0.02 H Absolute Nucleated RBC 0.00 Immature Gran % 0 Nucleated RBC % 0 Sodium 139 Potassium 4.2 D Chloride 102 Carbon Dioxide 27.3 Anion Gap 10 BUN 14 Creatinine 0.5 L Estim Creat Clear Calc 186.1 eGFR > 60 BUN/Creatinine Ratio 28 H Glucose 94 Calculated Osmolality 278 Calcium 10.1 Corrected Calcium 10.3 H Phosphorus 4.3 Magnesium 1.4 L Total Bilirubin 1.6 H AST 60 H ALT 30 Alkaline Phosphatase 83 Total Protein 8.5 H Albumin 3.7 Globulin 4.8 H Albumin/Globulin Ratio 0.8 L Quality Measures Quality Measures sepsis Current suspected stage: sepsis Possible source: other Blood cultures ordered: yes Antibiotic ordered: Yes Assessment & Plan Assessment Current Active Medications: Generic Name Dose Route Start Last Admin Trade Name Freq PRN Reason Stop Dose Admin Acetaminophen 500 mg 03/24/25 15:53 03/31/25 01:26 Acetaminophen Bonnie 325 Mg/10 Ml [facility] [place] GT 04/23/25 15:52 500 mg Q6H PRN Administration fever >100 or pain Albuterol/Ipratropium 3 ml 03/24/25 16:09 03/31/25 08:21 Albuterol/Ipratropium (Duoneb) Rt Bonnie 3 Ml Nebu INH 04/23/25 18:59 3 ml Q6HRRT PRN Administration dyspnea Enoxaparin Sodium 40 mg 03/24/25 16:15 04/02/25 09:06 Enoxaparin Sod Inj 40 Mg/0.4 Ml Syringe SC 04/07/25 16:14 40 mg QDAY CRISTY Administration Guaifenesin 100 mg 03/29/25 14:00 04/02/25 14:50 Guaifenesin Syrup 200 Mg/10 Ml [facility] 04/28/25 13:59 100 mg TID CRISTY Administration Protocol Morphine Sulfate 1 mg 03/31/25 21:06 03/31/25 22:40 Morphine Sulf Inj 4 Mg/Ml Vial IVP 04/05/25 21:05 1 mg Q4H PRN Administration Patient appears uncomfortable Ondansetron HCl 4 mg 03/24/25 15:57 Ondansetron Inj 2 Mg/Ml Inj 2 Ml IVP 04/23/25 15:56 Q8HR PRN NAUSEA OR VOMITING Protocol Plan 34 year old man in persistent vegetative state pMHX alcoholic cirrhotic liver disease/methamphetamine abuse s/p cardiac arrest with prolonged resuscitation resulting in anoxic encephalopathy referred from subacute due to fever up to 101F. Patient is mechanically ventilated, has a PEG in place, is non-verbal and comatose in a persistently vegetative state. ? #Goals of care discussion/counseling 03/26: Met with the family in the afternoon. Explained the patient's current health condition and the irreversibility of the brain injury. Patient understands that he will always be high risk readmission and further infections. Decision was made to transition to comfort care and patient extubation however family needs some time to gather more members. Discussed the plan with the charge nurse in the ICU and bilingual social worker. Family mentioned later in the afternoon that they want about 24 hours before the day decide on the exact timing of compassionate extubation and family gathering. ? 03/27: GOC discussion done with 4 sisters at [address] Cuevas, bilingual social worker present and 3 residents present (Dr. Yu, Dr. Smith and Dr. Bills). Family expresses significant frustrations regarding patient's treatment in subacute and current hospitalization treatment, distressed regarding care as patient was consistently found to have chapped bleeding lips, promise of bathing but still dirty, etc. Family questions plan of action of how withdrawing of ventilation will take place and medications required on hand, do not want him to have air hunger. Family reports other family (patient's mother, etc) are still have not yet arrived, but will be here tomorrow. Hospice and canvas cutter hand consulted at family's request. Transfer orders for med-surg in place. Another GOC took place with bilingual social worker and per bilingual social worker, family would now like to postpone withdrawal of ventilation due to being informed that they need to plan services and find a home. They will let social work know when they find one. ? #Coccidiomycosis, cocci IgM positive on 03/25 #SIRS (2/4) without presence of organ dysfunction At presentation, Clinical picture meets 2/4 SIRS criteria: T 100.4 (>100.9 or <96.8F), RR 24 (>20/min), HR 136 (>90/min), WBC 10.5 (>12 or <4K or Bands >10%). source of infection is in lungs evidenced by CXR enhanced vascular and interstitial markings. LA 4.0 ->0.9 UA was negative. 03/29 Superimposed bacterial infection is unlikely or must have been treated for by 5 days of azithromycin and Zosyn as CXR is neagtive. Consider possibility of false negative cocci as this infection is unlikely at a longterm 03/30 Sputum culture growing Pseudomonas sen Zosyn and Proteus mirabilis -patient is a pseudomonas colonizer likely. 03/31 Dr Velazco said that it would take a few days until fluconazole could start clearing cocci pneumonia. Antibiotics not indicated at this time. 04/01 Family states that they are going to be ready for comfort care Saturday with necessary accommodations for proper discharging post-extubation. Plan: -ID, Dr Velazco, consulted; appreciate recommendations -Guaifenesin GT 100mg TID -Fluconazole GT 400mg bid (03/25) -APAP GT 650mg x1 and 500mg Q6h PRN fever/pain -Morphine IVP 1mg Q4h PRN patient appears to be uncomfortable -Zosyn 3.375g Q8HR (03/24 -) -Azithromycin 500mg (03/24) and 250mg (03/25) -DC'ed Vancomycin pharm dosing -DuoNeb Q6h ? ? #Hx of vegetative state #Trach'd and Peg'd subacute order set reviewed Plan: -Dietitian referral in -Decrease tube feeds to 35 ml/hr via PEG tube by pump (do not advance). If no IV fluids, water flushes of 25 ml/hr (or per MD). ? #Thrombocytopenia #Hyperbilirubinemia #Cirrhosis US liver (02/14/2025) showed moderate hepatomegaly, cirrhosis, fatty infiltration with no focal liver lesions. T. bili 2.6, AST 84, Plt 103 ? -Monitor LFT on AM labs ? ? Health Maintenance: Code status: DNR DVT prophylaxis: Lovenox SC 40mg Qday GI prophylaxis: Famotidine Diet: Dietitian referral in [place]: yes Lines: PIV Supplemental O2: Mechanical ventilation Disposition: med surg, comfort care tomorrow to remove ventilation ? This case was discussed with my attending physician, Dr. Mclaughlin, and senior resident, Dr Rodriguez. Gerardo Bills PGY1 Senior Resident Attestation: The patient is afebrile for 24 hours, and we will continue on antibiotics for now. The family wanted to place the patient on comfort measures tomorrow, and we will respect their wishesh. I discussed with and supervised the general internist and physician leader physician involved in the care of this patient. I personally saw and examined the patient and discussed the assessment and plan with the entire medicine team, including my attending. I agree with the assessment and plan as documented above. Jimi Rodriguez MD PGY3 Internal Medicine Attending Provider Attestation/Addendum I have seen and examined the patient. I was physically present for the prieto portions of the services provided including history, physical exam, diagnosis, treatment plans and orders. I agree with assessment and plan of care as documented by residents. Even though this this note was carefully revised there may still be minor errors in pyrometer temperature regulator due to voice recognition software. Sarah Mclaughlin MD
[2025-04-02] MEDS: Magnesium Sulfate 4 GM Ivpb 4 GM/50 ML BAG IV (15:45)
[2025-04-02] MEDS: MORPHINE SULF INJ 4 MG/ML VIAL 1 MG IVP (19:43)
[2025-04-03] VITALS (9 sets, daily range): BP systolic 104–143; BP diastolic 72–92; PULSE 88–111; RESP 12–23; TEMP 36–36.9; O2SAT 86–96
[2025-04-03] MEDS: MORPHINE SULF INJ 4 MG/ML VIAL 1 MG IVP (05:13)
[2025-04-03] MEDS: guaiFENesin SYRUP 200 MG/10 ML UDC 100 MG GT (05:13)
[2025-04-03 05:55] LABS: Basophils # (Auto) 0.0 Thou/mm3 (0.0-0.2); Basophils % (Auto) 0 % (0-2.5); Eosinophils # (Auto) 0.1 Thou/mm3 (0.0-0.5); Eosinophils % (Auto) 1 % (0-10); Hematocrit 37.8 % (41.0-53.0); Hemoglobin 12.8 g/dL (13.5-16.0); Immature Granulocytes Auto 0.02 Thou/mm3 (0.00-0.00); Lymphocytes # (Auto) 1.1 Thou/mm3 (1.0-4.8); Lymphocytes % (Auto) 17 % (10-50); Mean Corpuscular HGB Conc 33.9 g/dl (31.0-37.0); Mean Corpuscular Hemoglobin 28.4 pg (25.0-35.0); Mean Corpuscular Volume 84 fL (80-100); Monocytes # (Auto) 0.6 Thou/mm3 (0.0-0.8); Monocytes % (Auto) 8 % (0-12); Neutrophils # (Auto) 4.9 Thou/mm3 (1.8-7.7); Neutrophils % (Auto) 73 % (37-80); Nucleated Red Blood Cell # 0.00 Thou/mm3 (0.00-0.00); Nucleated Red Blood Cell % 0 /100 WBC (0); Platelet Count 148 Thou/mm3 (140-440); RDW Standard Deviation 52.1 fL (35.1-43.9); Red Blood Count 4.50 Miln/mm3 (4.50-5.90); White Blood Count 6.6 Thou/mm3 (3.8-10.6)
[2025-04-03 06:28] LABS: Alanine Aminotransferase 27 U/L (10-49); Albumin, Serum 3.6 gm/dL (3.5-5.0); Albumin/Globulin Ratio 0.8 (1.2-2.2); Alkaline Phosphatase 83 U/L (46-116); Anion Gap 11 (7-16); Aspartate Amino Transferase 46 U/L (0-34); BUN/Creatinine Ratio 25 Ratio (12-20); Bilirubin,Total 1.4 mg/dL (0.3-1.2); Blood Urea Nitrogen 15 mg/dL (9-23); Calcium 9.5 mg/dL (8.3-10.6); Calcium (Corrected) 9.8 mg/dL (8.5-10.1); Carbon Dioxide 27.5 mMol/L (20.0-31.0); Chloride 104 mMol/L (98-107); Creatinine (Component) 0.6 mg/dL (0.6-1.3); Estimated Creatinine Clearance 155.1 mL/min (>60); Globulin 4.5 gm/dL (2.3-3.5); Glucose 98 mg/dL (74-106); Osmolality,Calculated 283 (275-295); Potassium 3.9 mMol/L (3.4-5.1); Sodium 142 mMol/L (136-145); Total Protein 8.1 gm/dL (5.7-8.2); eGFR > 60 See Note
[2025-04-03] MEDS: ENOXAPARIN SOD INJ 40 MG/0.4 ML SYRINGE SC (08:47)
[2025-04-03] MEDS: MORPHINE SULF INJ 4 MG/ML VIAL 2 MG IVP ×4 (09:34→18:29)
[2025-04-03] MEDS: SCOPOLAMINE 1 MG TDSY TOP (10:38)
[2025-04-03] MEDS: LORazepam 2 MG/ML VIAL IVP (12:46)
[2025-04-03] MEDS: Morphine IV Drip 100mg/100ml 100 ML IV (12:46)
--- NOTE | 2025-04-03 14:32 | PD.DDS ---
Documentation for date of: 04/03/25 Summary Date and Time Date of admission: 03/24/25 13:50 Additional Data Attending physician: Sarah Mclaughlin MD Visit Providers Provider Primary care physician: Physician No Primary/Family Consults: 03/25/25 15:52 Consult to Infectious Diseases Routine Comment: Patient cocci positive, outpatient mgmt Consulting Provider: Roel Velazco 03/27/25 11:51 Referral [facility] Stat Comment: Referral Hospice Stat Comment: 04/03/25 09:19 Referral Respiratory Therapy Routine Comment: Comfort care, withdrawal of ventilator at 2PM Discharge Plan Prescriptions/Referrals Prescriptions/Med Rec: No Action bisacodyl [Dulcolax (bisacodyl)] 10 mg Suppository 10 mg IA PRN PRN (Reason: No BM Per Bowel Management Protocol) Rx Instructions: Administer as needed on 6th shift, if MOM ineffective. polyethylene glycol 3350 17 gram Powder In Packet 17 g G-tube PRN PRN (Reason: No BM Per Bowel Management Protocol) Patient Comments: Administer as needed if 2nd round bowel protocol ineffective. Rx Instructions: Mix with 4oz of water before giving. Hold tube feeding for 30 minutes after administration. Notify provider if no results from Miralax. Fleet Enema 19-7 gram/118 mL Enema 133 ml IA PRN PRN (Reason: No BM Per Bowel Management Protocol) Patient Comments: If Dulcolax is ineffective on 3rd day / 7th shift, give Fleets enema per Bowel Management Protocol. Notify MD if no results from Enema. magnesium hydroxide [Milk of Magnesia] 400 mg/5 mL Suspension 30 ml G-tube PRN PRN (Reason: Constipation) Rx Instructions: CONC: 400MG/5ML Ear Wax Removal Drops 6.5 % Drops 5 drp otic (ear) Q61D Rx Instructions: 5 drops per ear at first med pass of shift. Then irrigate ears with NS at next med pass of each shift x 4 days for wax build up. *Start on the of the month, every two months. Ear Wax Removal Drops 6.5 % Drops 5 drp otic (ear) Q61D Patient Comments: 5 drops per ear at first med pass of shift. Then irrigate ears with NS at next med pass of each shift x 4 days for wax build up. Ear Wax Removal Drops 6.5 % Drops 5 drp otic (ear) Q61D Patient Comments: 5 drops per ear at first med pass of shift. Then irrigate ears with NS at next med pass of each shift x 4 days for wax build up. Ear Wax Removal Drops 6.5 % Drops 5 drp otic (ear) Q61D Patient Comments: 5 drops per ear at first med pass of shift. Then irrigate ears with NS at next med pass of each shift x 4 days for wax build up. Ear Wax Removal Drops 6.5 % Drops 5 drp otic (ear) Q61D Rx Instructions: 5 drops per ear at first med pass of shift. Then irrigate ears with NS at next med pass of each shift x 4 days for wax build up. *Start on the of the month, every two months. Ear Wax Removal Drops 6.5 % Drops 5 drp otic (ear) Q61D Rx Instructions: 5 drops per ear at first med pass of shift. Then irrigate ears with NS at next med pass of each shift x 4 days for wax build up. *Start on the of the month, every two months. Ear Wax Removal Drops 6.5 % Drops 5 drp otic (ear) Q61D Patient Comments: 5 drops per ear at first med pass of shift. Then irrigate ears with NS at next med pass of each shift x 4 days for wax build up. guaifenesin [Jayla-Tussin] 100 mg/5 mL Liquid 300 mg G-tube Q6HR PRN (Reason: Cough) Patient Comments: Give [id number] Rx Instructions: Conc: 100MG/5ML Ear Wax Removal Drops 6.5 % Drops 5 drp otic (ear) Q61D Patient Comments: 5 drops per ear at first med pass of shift. Then irrigate ears with NS at next med pass of each shift x 4 days for wax build up. ipratropium-albuterol 0.5 mg-3 mg(2.5 mg base)/3 mL Solution For Nebulization 3 ml INH Q6HRRT acetaminophen 325 mg Tablet 650 mg G-tube Q6HR PRN (Reason: Pain) Rx Instructions: (Give 325mg [id number]) NTE APAP 3gms/24hours Referrals: No Primary/Family,Physician [Primary Care Provider] Patient/Caregiver Discharge Instructions Print Language: Tanzanian
[2025-04-03] MEDS: LORazepam 2 MG/ML VIAL 1 MG IVP ×2 (15:28→18:32)
--- NOTE | 2025-04-03 15:28 | PC.NURSE ---
JOSE D DAVIS RT AND FAMILY AT BEDSIDE, PT DISCONNECTED FROM VENT, TOLERATED WELL, COMFORTABLE O2 SAT 92 RA HR 16, BP WNL. PT RESTING COMFORTABLY IN BED.
--- NOTE | 2025-04-03 17:15 | ESPR_ITS ---
Documentation for date of: 04/03/25 Subjective Subjective Interval history: Patient seen and examined at bedside; no acute events overnight. Patient family gathered at bedside for planned transition of care to comfort measures with terminal extubation at 3 PM today. Had goals of care discussion with multiple family members at bedside on 04/03/2025, who would like to pursue comfort focused measures at this point. Family is in agreement to forgo medical treatment in favor of comfort care. On 04/03, with multiple family memebers present in the room, patient taken off the ventilator according to the wishes of the primary decision-maker, Ms Annia Goldstein, as well as mother and consensus among family members.? Patient was initially comforted with morphine IV pushes before being placed on morphine gtt. Ventilator support stopped at 3PM with administration of Ativan 2mg to alleviate distress and patient started on morphine gtt. Exam Vital Signs Temp Pulse Resp BP Pulse Ox O2 Del Method FiO2 96.8 F 98 16 124/92 H 96 Mechanical Ventilation 45 04/03/25 07:52 04/03/25 12:00 04/03/25 07:52 04/03/25 07:52 04/03/25 12:00 04/03/25 07:52 04/03/25 12:00 Narrative Exam GENERAL: AOx0 (chronic vegetative state), no acute distress, eyes open not tracking. Patient was noted to be in flexion at his joints and collecting his hands and arms in his bossom. HEENT: mucous membranes moist, bilateral sclera anicteric CARDIOVASCULAR: regular rate and rhythm, S1/S2 present, no murmurs appreciated PULMONARY: Tracheostomy on ventilation support. bilateral coarse breath sounds ABDOMINAL: soft, non-tender, non-distended, no rebound/guarding, bowel sounds present, PEG EXTREMITIES: no peripheral edema SKIN: warm and dry, intact, no rashes NEURO: vegetative state Objective Labs 04/03/25 04:40 04/03/25 04:40 Labs: Laboratory Results - last 24 hr 04/03/25 04:40 WBC 6.6 RBC 4.50 Hgb 12.8 L Hct 37.8 L MCV 84 MCH 28.4 MCHC 33.9 RDW Std Deviation 52.1 H Plt Count 148 D Neut % (Auto) 73 Lymph % (Auto) 17 [place] % (Auto) 8 Eos % (Auto) 1 Baso % (Auto) 0 Neut # (Auto) 4.9 Lymph # (Auto) 1.1 [place] # (Auto) 0.6 Eos # (Auto) 0.1 Baso # (Auto) 0.0 Immature Gran # (Auto) 0.02 H Absolute Nucleated RBC 0.00 Immature Gran % 0 Nucleated RBC % 0 Sodium 142 Potassium 3.9 Chloride 104 Carbon Dioxide 27.5 Anion Gap 11 BUN 15 Creatinine 0.6 Estim Creat Clear Calc 155.1 eGFR > 60 BUN/Creatinine Ratio 25 H Glucose 98 Calculated Osmolality 283 Calcium 9.5 Corrected Calcium 9.8 Total Bilirubin 1.4 H AST 46 H ALT 27 Alkaline Phosphatase 83 Total Protein 8.1 Albumin 3.6 Globulin 4.5 H Albumin/Globulin Ratio 0.8 L Quality Measures Quality Measures sepsis Current suspected stage: ruled out Possible source: other Blood cultures ordered: yes Antibiotic ordered: No Assessment & Plan Assessment Current Active Medications: Generic Name Dose Route Start Last Admin Trade Name Freq PRN Reason Stop Dose Admin Atropine Sulfate 2 drop 04/03/25 09:16 Atropine Sulf Op Bonnie 1% 5 Ml Btl SL 05/03/25 09:15 Q4HR PRN SECRETIONS Morphine Sulfate 100 mls @ 1 mls/hr 04/03/25 09:16 04/03/25 12:46 Morphine Sulfate Iv Drip 100mg/100ml IV 04/08/25 09:15 1 mg/hr .Q24H PRN 1 mls/hr PAIN, agitation, distress Administration Protocol 1 MG/HR Acetaminophen 1,000 mg in 100 mls @ 250 mls/hr 04/03/25 09:20 Ofirmev Inj IV 04/04/25 00:23 Q6HR CRISTY Lorazepam 1 mg 04/03/25 16:02 Lorazepam 2 Mg/Ml Vial IVP 04/08/25 16:14 Q2HR PRN Agitation, distress, pain Morphine Sulfate 2 mg 04/03/25 09:16 04/03/25 15:28 Morphine Sulf Inj 4 Mg/Ml Vial IVP 04/08/25 09:15 2 mg Q30M PRN Administration Pain, agitation, distress Scopolamine 1 mg 04/03/25 09:30 04/03/25 10:38 Scopolamine 1 Mg Tdsy TOP 05/03/25 09:29 1 mg Q3D CRISTY Administration Plan 34 year old man in persistent vegetative state pMHX alcoholic cirrhotic liver disease/methamphetamine abuse s/p cardiac arrest with prolonged resuscitation resulting in anoxic encephalopathy referred from subacute due to fever up to 101F. Patient is mechanically ventilated, has a PEG in place, is non-verbal and comatose in a persistently vegetative state. ? #Goals of care discussion/counseling 03/26: Met with the family in the afternoon. Explained the patient's current health condition and the irreversibility of the brain injury. Patient understands that he will always be high risk readmission and further infections. Decision was made to transition to comfort care and patient extubation however family needs some time to gather more members. Discussed the plan with the charge nurse in the ICU and criminal justice social worker. Family mentioned later in the afternoon that they want about 24 hours before the day decide on the exact timing of compassionate extubation and family gathering. ? 03/27: GOC discussion done with 4 sisters at [address] Cuevas, criminal justice social worker present and 3 residents present (Dr. Yu, Dr. Smith and Dr. Bills). Family expresses significant frustrations regarding patient's treatment in subacute and current hospitalization treatment, distressed regarding care as patient was consistently found to have chapped bleeding lips, promise of bathing but still dirty, etc. Family questions plan of action of how withdrawing of ventilation will take place and medications required on hand, do not want him to have air hunger. Family reports other family (patient's mother, etc) are still have not yet arrived, but will be here tomorrow. Hospice and first officer consulted at family's request. Transfer orders for med-surg in place. Another GOC took place with criminal justice social worker and per criminal justice social worker, family would now like to postpone withdrawal of ventilation due to being informed that they need to plan services and find a home. They will let social work know when they find one. ? #Coccidiomycosis, cocci IgM positive on 03/25 #SIRS (2/4) without presence of organ dysfunction At presentation, Clinical picture meets 2/4 SIRS criteria: T 100.4 (>100.9 or <96.8F), RR 24 (>20/min), HR 136 (>90/min), WBC 10.5 (>12 or <4K or Bands >10%). source of infection is in lungs evidenced by CXR enhanced vascular and interstitial markings. LA 4.0 ->0.9 UA was negative. 03/29 Superimposed bacterial infection is unlikely or must have been treated for by 5 days of azithromycin and Zosyn as CXR is neagtive. Consider possibility of false negative cocci as this infection is unlikely at a skilled nursing 03/30 Sputum culture growing Pseudomonas sen Zosyn and Proteus mirabilis - patient is a pseudomonas colonizer likely. 03/31 Dr Velazco said that it would take a few days until fluconazole could start clearing cocci pneumonia. Antibiotics not indicated at this time. 04/01 Family states that they are going to be ready for comfort care Saturday with necessary accommodations for proper discharging post-extubation. Had goals of care discussion with multiple family members at bedside on 04/03/2025, who would like to pursue comfort focused measures at this point. Family is in agreement to forgo medical treatment in favor of comfort care. On 04/03, with multiple family memebers present in the room, patient taken off the ventilator according to the wishes of the primary decision-maker, Annia Goldstein, as well as mother and consensus among family members.? Patient was initially comforted with morphine IV pushes before being placed on morphine gtt. Ventilator support stopped at 3PM with administration of Ativan 2mg to alleviate distress and patient started on morphine gtt. Plan: Morphine IV GTT 1mg/h artificial tears PRN ondansetron IV 4mg Q6h PRN nasea or vomiting scopolamine patch Top Q3d acetaminophen 650mg Q6h PRN fever >101 morphine IV 2mg Q.5h PRN ? ? #Hx of vegetative state #Trach'd and Peg'd subacute order set reviewed Plan: -will withhold medical treatment in favor of comfort measures. ? #Thrombocytopenia #Hyperbilirubinemia #Cirrhosis US liver (02/14/2025) showed moderate hepatomegaly, cirrhosis, fatty infiltration with no focal liver lesions. T. bili 2.6, AST 84, Plt 103 ? -will withhold medical treatment in favor of comfort measures. ? ? Health Maintenance: Code status: DNR [place]: yes ? This case was discussed with my attending physician, Dr. Mclaughlin, and senior resident, Dr Yu. Harshad Causey DO, PGY 1 Attending Provider Attestation/Addendum I have seen and examined the patient. I was physically present for the prieto portions of the services provided including history, physical exam, diagnosis, treatment plans and orders. I agree with assessment and plan of care as documented by residents. Patient seen and examined at bedside this afternoon. Appears comfortable. Had a meeting with family this morning, had discussion regarding patient's prognosis, current status, goals of care, family has decided to start patient on comfort care and withdraw from ventilator support. Patient was started on comfort care measures as per their wishes this morning, and ventilator support was discontinued this afternoon around 3 PM in the presence of patient's RN, respiratory therapist and multiple family member. Aggressive management, lab draws have been discontinued, continues to be on as needed morphine, Ativan along with morphine drip as per comfort care measures. Even though this this note was carefully revised there may still be minor errors in district supervisor due to voice recognition software. Sarah Mclaughlin MD
[2025-04-03] MEDS: MORPHINE SULF INJ 4 MG/ML VIAL 3 MG IVP ×2 (18:41→21:02)
[2025-04-03] MEDS: [UNRECOGNIZED DRUG - OTHER] 2 DROP SL (18:49)
--- NOTE | 2025-04-03 19:19 | PC.NURSE ---
DR. SHARMA MADE AWARE OF PT INCREASE ANXIETY, RESPIRATORY DISTRESS, AND DISCOMFORT AFTER FAMILY REPOSITION PT. MORPHINE AND ATIVAN GIVEN PER JUN. PT STILL IN DISTRESS. DR. SHARMA ORDER MORPHINE 3 MG IVP X1, MORPHINE GIVEN, ATROPINE DROPS SL ADMINISTER AND MORPHINE DRIP INCREASE TO 2 MG. PT RESTING COMFORTABLY IN NO DISTRESS. FAMILY EDUCATED AND ALLOWED FOR QUESTIONS. FAMILY VERBALIZE UNDERSTANDING.
[2025-04-04] MEDS: MORPHINE SULF INJ 4 MG/ML VIAL 3 MG IVP ×8 (01:43→15:25)
[2025-04-04 06:00] VITALS: BP 122/82; PULSE 132; RESP 24; TEMP 37.6
[2025-04-04] MEDS: LORazepam 2 MG/ML VIAL 1 MG IVP ×5 (08:39→15:24)
--- NOTE | 2025-04-04 15:40 | PC.SS ---
Rounding: Pt remains on comfort care
--- NOTE | 2025-04-04 16:10 | DES_ITS ---
<Statement entered by Erich Yu MD - 04/06/25 07:53> I saw and examined patient personally and supervised PGY 1 resident, Dr. Causey with formulating a plan. I agree with the documentation as listed below. Plan of care discussed with Attending Dr. Arnoldo Yu MD PGY 2 Disclaimer: This note was dictated by speech recognition. Minor errors in pump tender may be present due to voice recognition software. <Statement entered by Sarah Mclaughlin MD - 04/05/25 14:47> Discussed the patient with resident physicians, agree with the note below. Even though this this note was carefully revised there may still be minor errors in pump tender due to voice recognition software. Sarah Mclaughlin MD Documentation for date of: 04/04/25 Summary Date and Time Date of admission: 03/24/25 13:50 Summary Hospital Course: Kevyn Rose was a 34yo male with cirrhotic liver disease/methamphetamine abuse s/p cardiac arrest with prolonged resuscitation resulting in anoxic encephalopathy referred from [facility] due to fever up to 101F on 03/24/2025.? Patient was admitted for sepsis secondary to pneumonia.? At presentation, clinical picture met 2/4 SIRS criteria: T100 0.4, RR 24, HR 136, WBC 10.5.? Source of infection in the lungs evidenced by CXR with enhanced vascular and interstitial markings.? LA elevated at 4.4, which downtrended to 0.9 after fluid boluses.? Patient started on broad-spectrum antibiotics Zosyn 3.375 g every 8 hours and azithromycin 500 mg on day 1 and 250mg for the 4 following days.? Sputum cultures grew Pseudomonas sensitive to Zosyn and Proteus mirabilis.? Patient was Pseudomonas colonizer likely.? ID was consulted, who stated that superimposed bacterial infection is unlikely or must have been treated for by 5 days of azithromycin and Zosyn as repeat CXR negative.? Cocci IgM came back positive and patient was started on fluconazole GT 400 mg twice daily.? On days 3 and 4, patient developed mild fevers overnight, which subsided acetaminophen. ? GOC discussion 03/26 and 03/27: Met with the family and explained the patient's current health condition and the irreversibility of the brain injury.? Family was understanding of the fact that the patient will be high risk for readmission and further infections.? Decision was made to transition to comfort care and patient extubation as soon as arrangements for home being made.? Discussed the plan with the charge nurse in the ICU and social service worker. ? On 04/03, with multiple family memebers present in the room, patient taken off the ventilator according to the wishes of the primary decision-maker, Ms nAnia Goldstein, as well as mother and consensus among family members.? Patient was initially comforted with morphine IV pushes before being placed on morphine 1mg/h gtt. Lorazepam 1mg Q6h for relieving distress from ventilator discontinuation, and other measures to accommodate for a peaceful expiration. At 1545 on 04/04, patient was pronounced . No spontaneous movements present. No response to verbal or tactile stimuli. Pupils mid-dilated, fixed, and unresponsive to light and absent corneal reflex. No breath sounds appreciated over either lung harp. No heart sounds auscultated over entire precordium. Patient pronounced at 1645 on 04/03/2025. Confirmed and witnessed by nurse. Admission diagnoses #Coccidiomycosis, cocci IgM positive on 03/25 #SIRS (2/4) breath without presence of organ dysfunction #History of vegetative state #Trached and pegged #Thrombocytopenia #Hyperbilirubinemia #Cirrhosis This case was discussed with my attending physician, Dr. Mclaughlin, and senior resident, Dr Yu. Even though this this note was carefully revised there may still be minor errors in pump tender due to voice recognition software. Harshad Cuasey, DO PGY I Additional Data Confirmation of as documented by pronouncing clinician: no pulse, no respirations, no heart sounds and pupils fixed and dilated Family: at bedside Attending/PCP notified?: Yes Attending physician: Sarah Mclaughlin MD Was code activated?: No Autopsy requested?: No rules examiner notified?: Yes Organ bank notified?: No Advance directives: No Visit Providers Provider Primary care physician: Physician No Primary/Family Consults: 03/25/25 15:52 Consult to Infectious Diseases Routine Comment: Patient cocci positive, outpatient mgmt Consulting Provider: Roel Velazco 03/27/25 11:51 Referral [facility] Stat Comment: Referral Hospice Stat Comment: 04/03/25 09:19 Referral Respiratory Therapy Routine Comment: Comfort care, withdrawal of ventilator at 2PM 04/04/25 15:37 Referral [facility] Stat Comment: Pronouncing clinician: Harshad Causey Discharge Plan Prescriptions/Referrals Prescriptions/Med Rec: No Action bisacodyl [Dulcolax (bisacodyl)] 10 mg Suppository 10 mg ME PRN PRN (Reason: No BM Per Bowel Management Protocol) Rx Instructions: Administer as needed on 6th shift, if MOM ineffective. polyethylene glycol 3350 17 gram Powder In Packet 17 g G-tube PRN PRN (Reason: No BM Per Bowel Management Protocol) Patient Comments: Administer as needed if 2nd round bowel protocol ineffective. Rx Instructions: Mix with 4oz of water before giving. Hold tube feeding for 30 minutes after administration. Notify provider if no results from Miralax. Fleet Enema 19-7 gram/118 mL Enema 133 ml ME PRN PRN (Reason: No BM Per Bowel Management Protocol) Patient Comments: If Dulcolax is ineffective on 3rd day / 7th shift, give Fleets enema per Bowel Management Protocol. Notify MD if no results from Enema. magnesium hydroxide [Milk of Magnesia] 400 mg/5 mL Suspension 30 ml G-tube PRN PRN (Reason: Constipation) Rx Instructions: CONC: 400MG/5ML Ear Wax Removal Drops 6.5 % Drops 5 drp otic (ear) Q61D Rx Instructions: 5 drops per ear at first med pass of shift. Then irrigate ears with NS at next med pass of each shift x 4 days for wax build up. *Start on the of the month, every two months. Ear Wax Removal Drops 6.5 % Drops 5 drp otic (ear) Q61D Patient Comments: 5 drops per ear at first med pass of shift. Then irrigate ears with NS at next med pass of each shift x 4 days for wax build up. Ear Wax Removal Drops 6.5 % Drops 5 drp otic (ear) Q61D Patient Comments: 5 drops per ear at first med pass of shift. Then irrigate ears with NS at next med pass of each shift x 4 days for wax build up. Ear Wax Removal Drops 6.5 % Drops 5 drp otic (ear) Q61D Patient Comments: 5 drops per ear at first med pass of shift. Then irrigate ears with NS at next med pass of each shift x 4 days for wax build up. Ear Wax Removal Drops 6.5 % Drops 5 drp otic (ear) Q61D Rx Instructions: 5 drops per ear at first med pass of shift. Then irrigate ears with NS at next med pass of each shift x 4 days for wax build up. *Start on the of the month, every two months. Ear Wax Removal Drops 6.5 % Drops 5 drp otic (ear) Q61D Rx Instructions: 5 drops per ear at first med pass of shift. Then irrigate ears with NS at next med pass of each shift x 4 days for wax build up. *Start on the of the month, every two months. Ear Wax Removal Drops 6.5 % Drops 5 drp otic (ear) Q61D Patient Comments: 5 drops per ear at first med pass of shift. Then irrigate ears with NS at next med pass of each shift x 4 days for wax build up. guaifenesin [Jayla-Tussin] 100 mg/5 mL Liquid 300 mg G-tube Q6HR PRN (Reason: Cough) Patient Comments: Give [id number] Rx Instructions: Conc: 100MG/5ML Ear Wax Removal Drops 6.5 % Drops 5 drp otic (ear) Q61D Patient Comments: 5 drops per ear at first med pass of shift. Then irrigate ears with NS at next med pass of each shift x 4 days for wax build up. ipratropium-albuterol 0.5 mg-3 mg(2.5 mg base)/3 mL Solution For Nebulization 3 ml INH Q6HRRT acetaminophen 325 mg Tablet 650 mg G-tube Q6HR PRN (Reason: Pain) Rx Instructions: (Give 325mg 2xuhy=820ht) NTE APAP 3gms/24hours Referrals: No Primary/Family,Physician [Primary Care Provider] Patient/Caregiver Discharge Instructions Print Language: Sami
--- NOTE | 2025-04-04 16:52 | PD.DPN ---
Documentation for date of: 04/04/25 Pronouncement Note Date and Time of Date of : 04/04/25 Time of : 15:45 PCOD Preliminary cause of : Comfort measures only status Contributing Factors (1) Anoxic brain damage: Summary Additional details: I was called to patient's bedside to pronounce that Kevyn Rose, 34 years old and male, has . No spontaneous movements present. No response to verbal or tactile stimuli. Pupils mid-dilated, fixed, and unresponsive to light and absent corneal reflex. No breath sounds appreciated over either lung harp. No heart sounds auscultated over entire precordium. Patient pronounced at 1645 on 04/03/2025. Confirmed and witnessed by nurse. Family was notified and condolences were given. Additional Data Confirmation of : no pulse, no respirations, no heart sounds and pupils fixed and dilated Family: at bedside Additional persons at bedside: other (nurse) Attending/PCP notified?: Yes Attending physician: Sarah Mclaughlin MD Was code activated?: No Autopsy requested?: No light out examiner notified?: Yes Organ bank notified?: No Advance directives: No
== END 2025-04-04 16:15 | disposition expired | DRG 137 ==
LOC: SERX 13:17 → SERHOLD 13:50 → S2SX 16:29 → S3NX 03-27 16:08
PROVIDERS: Admitting Provider Student in an Organized Health Care Education/Training Program; Emergency Provider Emergency Medicine; Visit Provider Student in an Organized Health Care Education/Training Program
DX: J95.851 Ventilator associated pneumonia (principal); Z99.11 Dependence on respirator [ventilator] status; R40.3 Persistent vegetative state; Z93.0 Tracheostomy status; K70.30 Alcoholic cirrhosis of liver without ascites; Y84.8 Other medical procedures as the cause of abnormal reaction of the patient, or of later complication, without mention of misadventure at the time of the procedure; D69.6 Thrombocytopenia, unspecified; J96.21 Acute and chronic respiratory failure with hypoxia; Z51.5 Encounter for palliative care; Z66 Do not resuscitate; Z87.01 Personal history of pneumonia (recurrent); Z93.1 Gastrostomy status; I46.8 Cardiac arrest due to other underlying condition; B96.5 Pseudomonas (aeruginosa) (mallei) (pseudomallei) as the cause of diseases classified elsewhere; G82.20 Paraplegia, unspecified; G93.1 Anoxic brain damage, not elsewhere classified; R40.20 Unspecified coma; B38.0 Acute pulmonary coccidioidomycosis
CPT/HCPCS: 36415; 71045; 80053; 81001; 83605; 83735; 84100; 84145; 84484; 85025; 86635; 87040; 87077; 87081; 87186; 87205; 87502; 87634; 87811; 93005; 93225; 94003; 94640; 94664; 96361; 96365; 99283; A9270; J0692; J1650; J2060; J2270; J2543; J3374; J3475; J3480; J7030; J7050; J7999